=== PATIENT | female | born 2000 | race Caucasian/White ===

== ENCOUNTER 2023-01-19 14:18 | Emergency (ER) | payer OTHER, SELFPAY ==
[2023-01-19 14:22] VITALS: BP 116/70; PULSE 57; RESP 18; TEMP 36.8; O2SAT 99; BMI 24.7
--- NOTE | 2023-01-19 14:38 | ED_ITS ---
HPI - Nausea/Vomiting/Diarrhea General Chief complaint: Nausea/Vomiting/Diarrhea Stated complaint: NAUSEA/VOMITTING 6 WEEKS Time Seen by Provider: 01/19/23 14:35 Source: patient Mode of arrival: walk-in Limitations: no limitations History of Present Illness HPI Narrative: 22-year-old female presents for nausea and vomiting. She is she states, about six weeks. No vaginal bleeding or fever or hematemesis. She has been able to eat or drink much at all in the last forty-eight hours. She had problems with morning sickness in her other . Related Data Previous Rx's Medication Instructions Recorded ondansetron 4 mg disintegrating 4 mg PO Q6H PRN nausea and 01/19/23 tablet vomiting #20 tabs Allergies Allergy/AdvReac Type Severity Reaction Status Date / Time codeine Allergy Unknown Verified 01/19/23 14:22 Review of Systems ROS Narrative A ten point review of systems is negative except as noted above. Exam Narrative Exam Narrative: Nurses note and vital signs reviewed and patient is not hypoxic. General: The patient appears well and in no apparent distress. Patient is resting comfortably on cart. Skin: Warm, dry, no pallor noted. There is no rash noted. Head: Normocephalic, atraumatic Eye: Normal conjunctiva, no drainage Ears, Nose, Mouth, and Throat: oral mucosa is moist. Nares patent. Cardiovascular: Regular Rate and Rhythm Respiratory: Patient is in no distress, no accessory muscle use, lungs are clear to auscultation, no wheezing, rales or rhonchi Back: non-tender GI: soft and nontender Musculoskeletal: The patient has no evidence of calf tenderness, no pitting edema, symmetrical pulses noted bilaterally Neurological: A&O, normal speech Psychiatric: Cooperative Constitutional Vital Signs, click to edit/add: Last Vital Signs Temp 98.2 F 01/19/23 14:22 Pulse 58 L 01/19/23 15:55 Resp 18 01/19/23 15:55 BP 112/53 01/19/23 15:55 Pulse Ox 100 01/19/23 15:55 O2 Del Method Room Air 01/19/23 14:22 Course Vital Signs Vital signs: Vital Signs Temperature 98.2 F 01/19/23 14:22 Pulse Rate 57 L 01/19/23 14:22 Respiratory Rate 18 01/19/23 14:22 Blood Pressure 116/70 11/08/23 14:22 Pulse Oximetry 99 01/19/23 14:22 Oxygen Delivery Method Room Air 01/19/23 14:22 Temperature 98.2 F 01/19/23 14:22 Pulse Rate 58 L 01/19/23 15:55 Respiratory Rate 18 01/19/23 15:55 Blood Pressure 112/53 01/19/23 15:55 Pulse Oximetry 100 01/19/23 15:55 Oxygen Delivery Method Room Air 01/19/23 14:22 MDM - Nausea/Vomiting/Diarrhea MDM Narrative Medical decision making narrative: T Lab Data Attestation: I reviewed the patient's lab results. Labs: Lab Results 01/19/23 01/19/23 Range/Units 14:53 16:30 WBC 11.0 (4.0-11.0) 10^3/uL RBC 3.97 L (4.20-5.40) 10^6/uL Hgb 12.2 (12.0-16.0) g/dL Hct 38.1 (36.0-48.0) % MCV 96.0 (81.0-99.0) fL MCH 30.7 (26.7-34.0) pg MCHC 32.0 (29.9-35.2) g/dL RDW 11.9 (11.0-15.0) % Plt Count 259 (150-450) 10^3/uL MPV 10.6 (9.5-13.5) fL Neut % (Auto) 74.0 (43.0-75.0) % Lymph % (Auto) 18.0 L (20.5-60.0) % Bailey % (Auto) 6.8 (1.7-12.0) % Eos % (Auto) 0.5 L (0.9-7.0) % Baso % (Auto) 0.3 (0.2-2.0) % Neut # (Auto) 8.2 H (1.4-6.5) 10^3/uL Lymph # (Auto) 2.0 (1.2-3.8) 10^3/uL Bailey # (Auto) 0.8 (0.3-0.8) 10^3/uL Eos # (Auto) 0.1 (0.0-0.7) 10^3/uL Baso # (Auto) 0.0 (0.0-0.1) 10^3/uL Abs Immat Gran (auto) 0.04 H (0.00-0.03) 10^3/uL Imm/Tot Granulo (auto) 0.4 (0.0-0.5) % Sodium 136 (136-145) mmol/L Potassium 3.7 (3.5-5.1) mmol/L Chloride 103 (98-107) mmol/L Carbon Dioxide 21.0 (21.0-32.0) mmol/L Anion Gap 15.7 BUN 8.0 (7.0-18.0) mg/dL Creatinine 0.67 (0.55-1.02) mg/dL Est GFR ( Amer) >60 (>=60) Est GFR (Non-Af Amer) >60 (>=60) BUN/Creatinine Ratio 11.9 Glucose 78 (74-106) mg/dL Calcium 8.8 (8.5-10.1) mg/dL Serum HCG, Qual Positive A (NEGATIVE) Urine Color Yellow (YELLOW) Urine Clarity Clear (CLEAR) Urine pH 6.5 (5.0-9.0) Ur Specific [place] 1.025 (1.005-1.025) Urine Protein Trace (NEG/TRACE) mg/dL Urine Glucose (UA) Negative (NEGATIVE) mg/dL Urine Ketones >=80 A (NEGATIVE) mg/dL Urine Occult Blood Negative (NEGATIVE) Urine Nitrite Negative (NEGATIVE) Urine Bilirubin Small A (NEGATIVE) Urine Urobilinogen 1.0 (0.2-1.0) EU/dL Ur Leukocyte Esterase Negative (NEGATIVE) Urine RBC 0-2 (0-2) #/HPF Urine WBC None seen (NONE SEEN) #/HPF Ur Squamous Epith Cells Few A (NONE/RARE) #/LPF Urine Crystals None seen (None Seen) #/HPF Urine Bacteria Moderate A (NONE SEEN) #/HPF Urine Casts None seen (NONE SEEN) #/LPF Urine Mucus Moderate A (NONE SEEN) Discharge Plan Discharge Chief Complaint: Nausea/Vomiting/Diarrhea Clinical Impression: Nausea and vomiting in Patient Disposition: Home, Self-Care Time of Disposition Decision: 17:53 Condition: Good Mode of Transportation: Private Vehicle Prescriptions / Home Meds: New ondansetron 4 mg tablet,disintegrating 4 mg PO Q6H PRN (Reason: nausea and vomiting) Qty: 20 0RF Instructions: Nausea and Vomiting in (ED) Stand Alone Forms: Portal Instructions Referrals: Physician,Non-Staff, MD [Primary Care Provider] - 1 week
[2023-01-19 15:01] LABS: Basophils Percent Auto 0.3 % (0.2-2.0); Eosinophils Absolute Auto 0.1 10^3/uL (0.0-0.7); Eosinophils Percent Auto 0.5 % (0.9-7.0); Hematocrit 38.1 % (36.0-48.0); Hemoglobin 12.2 g/dL (12.0-16.0); Immature Granulocytes Abs Auto 0.04 10^3/uL (0.00-0.03); Immature Granulocytes Pct Auto 0.4 % (0.0-0.5); Mean Corpuscular Hemoglobin 30.7 pg (26.7-34.0); Mean Platelet Volume 10.6 fL (9.5-13.5); Monocytes Absolute Auto 0.8 10^3/uL (0.3-0.8); Monocytes Percent Auto 6.8 % (1.7-12.0); Neutrophils Absolute Auto 8.2 10^3/uL (1.4-6.5); Platelet Count 259 10^3/uL (150-450); Red Blood Count 3.97 10^6/uL (4.20-5.40); Red Cell Distribution Width 11.9 % (11.0-15.0)
[2023-01-19 15:08] LABS: HCG Qualitative POSITIVE (NEGATIVE)
[2023-01-19] MEDS: 0.9 % SODIUM CHLORIDE 1,000 ML 1000 ML IV (15:08)
[2023-01-19] MEDS: ONDANSETRON PF 4 MG/2 ML VIAL IV (15:09)
[2023-01-19 15:10] LABS: Anion Gap 15.7; BUN Creatinine Ratio 11.9; Calcium 8.8 mg/dL (8.5-10.1); Chloride 103 mmol/L (98-107); Estimated GFR (African America >60 (>=60); Estimated GFR (Non-African Ame >60 (>=60); Glucose 78 mg/dL (74-106); Potassium 3.7 mmol/L (3.5-5.1); Sodium 136 mmol/L (136-145)
[2023-01-19 15:55] VITALS: BP 112/53; PULSE 58; RESP 18; O2SAT 100
[2023-01-19 17:28] LABS: Bilirubin Urine SMALL (NEGATIVE); Blood Urine NEGATIVE (NEGATIVE); Clarity Urine CLEAR (CLEAR); Color Urine YELLOW (YELLOW); Glucose Urine UA NEGATIVE (NEGATIVE); Ketones Urine >=80 mg/dL (NEGATIVE); Leukocyte Esterase Urine NEGATIVE (NEGATIVE); Nitrite Urine NEGATIVE (NEGATIVE); Protein Urine TRACE mg/dL (NEG/TRACE); Specific Gravity Urine 1.025 (1.005-1.025); pH Urine 6.5 (5.0-9.0)
[2023-01-19 17:44] LABS: Bacteria Urine MODERATE #/HPF (NONE SEEN); Cast Seen? NONE SEEN #/LPF (NONE SEEN); Crystals Seen? None Seen #/HPF (None Seen); Mucus Urine MODERATE (NONE SEEN); RBC Urine 0-2 #/HPF (0-2); Squamous Epithelial Cell Urine FEW #/LPF (NONE/RARE); WBC Urine NONE SEEN #/HPF (NONE SEEN)
== END 2023-01-19 18:01 | disposition home or self-care (01) ==
PROVIDERS: Emergency Provider Emergency Medicine
DX: O26.891 Other specified pregnancy related conditions, first trimester (principal); R11.2 Nausea with vomiting, unspecified; Z3A.01 Less than 8 weeks gestation of pregnancy
CPT/HCPCS: 36415; 80048; 81001; 84703; 85025; 96361; 96374; 99285

== ENCOUNTER 2023-04-22 08:37 | Outpatient (OUT) | payer OTHER, SELFPAY ==
--- NOTE | 2023-04-22 08:39 | US_ITS ---
[address] [address] Patient Name: RUBEN IYER MRN: [id number] date: 2000 Sex: F Assigned Patient Location: [facility] Current Patient Location: [facility] Accession/Order Number: [id number] Exam Date: 04/22/2023 08:39 Report Date: 04/22/2023 09:29 At the request of: ASHER RHOADES Procedure: US OB >= 14 weeks Fetus EXAMINATION: US OB >= 14 weeks Fetus HISTORY: MISSED MENSES COMPARISON: No relevant comparison available. TECHNIQUE: Transabdominal sonographic examination was performed for obstetrical and evaluation. FINDINGS: Number: 1 Heart Rate: 151.0 bpm H.B. /min Amniotic Fluid Volume: Subjectively normal position: Cephalic presentation, longitudinal lie Placental Location: Blank Cervix Length: Not measured BIOMETRY: BPD: 4.5 cm 19 weeks 3 days , 18% HC: 16.9 cm 19 weeks 4 days, 14% AC: 14.1 cm 19 weeks 3 days, 20% FL: 3.1 cm 19 weeks 5 days , 24% EFW:302.2 grams; [ounces, 14% FL/AC: 22.2 FL/BPD: 70.6 HC/AC: 1.2 GESTATIONAL AGE: Age by EDC: 20 weeks 2 days Age by current US: 19 weeks 4 days ASAEL by current US: 09/12/2023 ASAEL by EDC: 09/07/2023 US/US OB >= 14 weeks Fetus IMPRESSION: Viable tolbert intrauterine gestation measuring 19 weeks 4 days *Reference: [facility] Practice Guideline for the performance of Obstetric Ultrasound Examinations, December 12, 2006. Electronically authenticated by: JORDON PETTY Date: 04/22/2023 09:29
--- OUTSIDE RECORDS SUMMARY | 2023-04-22 08:40 | XMS_ITS | CCD ---
Author Name Unknown Address [id number] [place] [address] Organization [facility] Care Team Providers Care Specialty Plant Supervisor Name Role Phone GUNNER, DR BOGGS Admitting Unavailable MISC, DR ORANTES Primary Care Unavailable KARASIK, DR BOGGS Attending Unavailable KARASIK, DR BOGGS Consulting Unavailable MISC, DR ORANTES Primary Care Unavailable KARASIK, DR BOGGS Attending Unavailable KARASIK, DR BOGGS Consulting Unavailable KARASIK, DR BOGGS Admitting Unavailable Mohini Anaya MD Primary Care Provider [phone] MOHINI ANAYA Primary Care Unavailable MANASA ROY Attending Unavailable NO FAMILY, PHYSICIAN Primary Care Provider Unava aydinable MD Ephraim Santoyo Jr Emergency Provider MD Abdulkadir Maradiaga Admit Provider [phone] MD Abdulkadir Maradiaga Attending Provider Javi Maradiaga Admitting Unavailab le RODDY FAMILY, PHYSICIAN Primary Care Unavailable Sebastian Brock Attending Unavailable Javi Maradiaga Admitting Unavailab le Javi Maradiaga Attending Unavailab le NO FAMILY, PHYSICIAN Primary Care Unavailable Allergies Allergy Classification Reported Allergen(s) Allergy Type Date of Onset Reaction(s) Facility (1 source) Acetaminophen / HYDROcodone Drug Allergy [facility] Repository (2 sources) Codeine Drug Allergy 2 Nausea And Vomiting [facility] [employer] (1 source) Shellfish-Derived Products Propensity to adverse reactions to drug 2 Angioedema [facility] Work Phone: (1 source) Codeine Drug Allergy 3 [facility] Repository Medications Current Medications Medication Drug Class(es) Dates Sig (Normalized) Sig (Original) escitalopram 5 mg oral tablet (1 source) Serotonin Reuptake Inhibitor Start: 10-17-2022 take 5 mg by mouth once daily at bedtime Escitalopram Oxalate Active 5 MG PO Daily at bedtime 30 30 October 17, 2022 12:00am fluconazole 150 mg oral tablet (1 source) Azole Antifungal Start: 08-14-2021 End: 08-14-2021 take 1 tablet by mouth once fluconazole (DIFLUCAN) 150 MG tablet Take 1 tablet by mouth once for 1 dose 1 tablet 0 08/14/2021 08/14/2021 Active metroNIDAZOLE 500 mg oral tablet (1 source) Nitroimidazole Antimicrobial Start: 08-14-2021 End: 08-24-2021 take 1 tablet by mouth twice daily metroNIDAZOLE (FLAGYL) 500 MG tablet Take 1 tablet by mouth 2 times daily for 10 days 20 tablet 0 08/14/2021 08/24/2021 Active nicotine 2 mg chewing gum (1 source) Cholinergic Nicotinic Agonist Start: 10-17-2022 Nicotine (Polacrilex) Active 2 MG BUCCAL Every 2 hours 60 October 17, 2022 12:00am Reeves (No Known Home Meds) (1 source) Start: 10-14-2022 Reeves (No Known Home Meds) Active October 14, 2022 12:00am Problems Active Problems Problem Classification Problem Date Documented Date Episodic/Chronic Inflammatory diseases of female pelvic organs (1 source) Bacterial vaginosis; Translations: [Acute vaginitis] Episodic Mood disorders (4 sources) Recurrent major depressive episodes, moderate ; Translations: [Major depressive disorder, recurrent, moderate] Onset: 10-14-2022 10-14-2022 Chronic Other female genital disorders (4 sources) Other specified noninflammatory disorders of vagina; Translations: [OTH SPEC NONINFLAMMATORY D/O VAGINA] Onset: 01-14-2021 Episodic Other female genital disorders (1 source) Pruritus of vagina; Translations: [Other specified noninflammatory disorders of vagina] Episodic Past or Other Problems Problem Classification Problem Date Documented Date Episodic/Chronic Blindness and vision defects (3 sources) Blurring of visual image; Translations: [Other visual disturbances] Onset: 10-14-2022 10-14-2022 Episodic Immunizations and screening for infectious disease (1 source) Encounter for screening for infections with a predominantly sexual mode of transmission; Translations: [ENC SCREEN INFECTIONS SEXL TRANSMS] Onset: 05-02-2020 Episodic Suicide and intentional self-inflicted injury (3 sources) Suicidal thoughts; Translations: [Suicidal ideations] Onset: 10-14-2022 10-14-2022 Episodic Results Test Name Value Interpretation Reference Range Facility Alanine aminotransferase [En zymatic activity/volume] in Serum or PlasmaOrdered By: Ephraim Santoyo on 10-14-2022 ALT [Catalytic activity/Vol] 7 U/L 7-52 [facility] Albumin [Mass/volume] in Ser um or Plasma by Bromocresol green (BCG) dye binding methoOrdered By: Ephraim Santoyo on 10-14-2022 Albumin BCG dye [Mass/Vol] 4.5 g/dL 3.5-5.7 [facility] Alkaline phosphatase [Enzyma tic activity/volume] in Serum or PlasmaOrdered By: Ephraim Santoyo on 10-14-2022 ALP [Catalytic activity/Vol] 47 U/L 34-104 [facility] Amphetamine Screen Ql (U)Ord ered By: Ephraim Santoyo on 10-14-2022 Amphetamines Ql (U) Negative Negative [facility] Aspartate aminotransferase [ Enzymatic activity/volume] in Serum or PlasmaOrdered By: Ephraim Santoyo on 10-14-2022 AST [Catalytic activity/Vol] 10 U/L 13-39 [facility] Automated erythrocytes count in urine sediment (number/area)Ordered By: Ephraim Santoyo on 10-14-2022 RBC Auto (Urine sed) [#/Area] 10-19 [HPF] 0-4 [facility] Automated leukocytes count i n urine sediment (number/area)Ordered By: Ephraim Santoyo on 10-14-2022 WBC Auto (Urine sed) [#/Area] 20-49 [HPF] 0-4 [facility] Automated urine hyaline cast s count (number/volume)Ordered By: Ephraim Santoyo on 10-14-2022 Hyaline casts Auto (U) [#/Vol] 0-1 [LPF] 0-1 [facility] Automated urine sediment stephen cium oxalate crystal count by microscopy (number/high powOrdered By: Ephraim Santoyo on 10-14-2022 Calcium oxalate crystals LM.HPF (Urine sed) [#/Area] Rare [HPF] [facility] Barbiturates [Presence] in U rine by Screen methodOrdered By: Ephraim Santoyo on 10-14-2022 Barbiturates Screen Ql (U) Negative Negative [facility] Basophils Auto (Bld) [#/Vol] Ordered By: Ephraim Santoyo on 10-14-2022 Basophils (Bld) [#/Vol] 0.1 10*3/uL 0.0-0.2 [facility] Basophils/100 WBC Auto (Bld) Ordered By: Ephraim Santoyo on 10-14-2022 Basophils/100 WBC (Bld) 0.8 % . [facility] Benzodiazepines Screen Ql (U )Ordered By: Ephraim Santoyo on 10-14-2022 Benzodiazepines Ql (U) Negative Negative [facility] Benzoylecgonine [Presence] i n Urine by Screen methodOrdered By: Ephraim Santoyo on 10-14-2022 Benzoylecgonine Screen Ql (U) Negative Negative [facility] Bilirubin Test strip Ql (U)O rdered By: Ephraim Santoyo on 10-14-2022 Bilirubin Ql (U) Negative Negative [facility] Bilirubin.total [Mass/volume ] in Serum or PlasmaOrdered By: Ephraim Santoyo on 10-14-2022 Bilirubin [Mass/Vol] 0.3 mg/dL 0.3-1.0 [facility] Calcium [Mass/volume] in Ser um or PlasmaOrdered By: Ephraim Santoyo on 10-14-2022 Calcium [Mass/Vol] 9.0 mg/dL 8.6-10.3 [facility] Cannabinoids [Presence] in U rine by Screen methodOrdered By: Ephraim Santoyo on 10-14-2022 Cannabinoids Screen Ql (U) Positive Negative [facility] Comment on above: These are unconfirme d results and should not be used for legal purposes. Drug Cut-Off Concentration: AMPH 1000 ng/mL IRENE 200 ng/mL ANGELINE 200 ng/mL COCM 300 ng/mL OP 300 ng/mL PCP 25 ng/mL THC 20 ng/mL Carbon dioxide, total [Moles /volume] in Serum or PlasmaOrdered By: Ephraim Santoyo on 10-14-2022 CO2 [Moles/Vol] 24.2 mmol/L 21.0-31.0 [facility] Casts typing in urine sedime nt by light microscopyOrdered By: Ephraim Santoyo on 10-14-2022 Casts LM Nom (Urine sed) None seen [LPF] None Seen [facility] Chloride [Moles/volume] in S mack or PlasmaOrdered By: Ephraim Santoyo on 10-14-2022 Chloride [Moles/Vol] 106 mmol/L 98-107 [facility] Cholesterol [Mass/volume] in Serum or PlasmaOrdered By: Javi Maradiaga on 10-14-2022 Cholesterol [Mass/Vol] 188 mg/dL 140-200 [facility] Comment on above: Chol less than 200 m g/dl low riskChol 201-239 mg/dl borderline riskChol 240 mg/dl and greater high risk Cholesterol in LDL Calc [Mas s/Vol]Ordered By: Javi Maradiaga on 10-14-2022 Cholesterol in LDL [Mass/Vol] 131 mg/dL 0-100 [facility] Comment on above: LDL ATP III CLASSIFI CATIONLDL less than 100 mg/dL OptimalLDL 100-129 mg/dL Near or above optimalLDL 130-159 mg/dL Borderline highLDL 160-189 mg/dL HighLDL greater than 189 mg/dL Very high Cholesterol in VLDL Calc [Ma ss/Vol]Ordered By: Javi Maradiaga on 10-14-2022 Cholesterol in VLDL [Mass/Vol] 12 mg/dL [facility] Color Auto (U)Ordered By: Nick Santoyo on 10-14-2022 Color (U) Yellow Yellow [facility] Complete Blood Count Auto Di ffon 10-14-2022 Basophils (Bld) [#/Vol] 0.1 10*3/uL Normal 0.0-0.2 [facility] Comment on above: Result Comment: PERF ORMED BY: [facility] [address] [place] [address] PATHOLOGIST GATE SUPERVISOR SHANICE SOLORZANO M.D. Performed By: #### C BC, ETOH, CMP #### [facility] [address] [place] [address] [place] Basophils/100 WBC (Bld) 0.8 % Normal . [facility] Comment on above: Performed By: #### C BC, ETOH, CMP #### [facility] [address] [place] [address] [place] Eosinophils (Bld) [#/Vol] 0.1 10*3/uL Normal 0.0-0.45 [facility] Comment on above: Performed By: #### C BC, ETOH, CMP #### [facility] [address] [place] [address] [place] Eosinophils/100 WBC (Bld) 1.8 % Normal . [facility] Comment on above: Performed By: #### C BC, ETOH, CMP #### [facility] [address] Erythrocyte distribution width (RBC) [Ratio] 12.7 % Normal 11.9-15.3 [facility] Comment on above: Performed By: #### C BC, ETOH, CMP #### [facility] [address] [place] [address] [place] Hematocrit (Bld) [Volume fraction] 37.9 % Normal 34.0-46.4 [facility] Comment on above: Performed By: #### C BC, ETOH, CMP #### [facility] [address] [place] [address] [place] Hemoglobin (Bld) [Mass/Vol] 12.8 g/dL Normal 11.8-15.4 [facility] Comment on above: Performed By: #### C BC, ETOH, CMP #### [facility] [address] [place] [address] [place] Lymphocytes (Bld) [#/Vol] 2.3 10*3/uL Normal 1.00-4.8 [facility] Comment on above: Performed By: #### C BC, ETOH, CMP #### [facility] [address] [place] [address] [place] Lymphocytes/100 WBC (Bld) 33.4 % Normal . [facility] Comment on above: Performed By: #### C BC, ETOH, CMP #### [facility] [address] MCH (RBC) [Entitic mass] 31.2 pg Normal 24.7-34.3 [facility] Comment on above: Performed By: #### C BC, ETOH, CMP #### [facility] [address] MCV (RBC) [Entitic vol] 92.0 fL Normal 80-[address] [facility] Comment on above: Performed By: #### C BC, ETOH, CMP #### [facility] [address] Mean Corpuscular HGB Conc 33.9 g/dL Normal 32.0-35.0 [facility] Comment on above: Performed By: #### C BC, ETOH, CMP #### [facility] [address] Monocytes (Bld) [#/Vol] 0.5 10*3/uL Normal 0.0-0.8 [facility] Comment on above: Performed By: #### C BC, ETOH, CMP #### [facility] [address] [place] [address] [place] Monocytes/100 WBC (Bld) 17.09 % Normal 0.00-20.[address] [facility] Comment on above: Performed By: #### C BC, ETOH, CMP #### [facility] [address] [place] [address] [place] Monocytes/100 WBC (Bld) 8.0 % Normal . [facility] Comment on above: Performed By: #### C BC, ETOH, CMP #### [facility] [address] [place] [address] [place] Neutrophils (Bld) [#/Vol] 3.8 10*3/uL Normal 1.8-7.7 [facility] Comment on above: Performed By: #### C BC, ETOH, CMP #### [facility] [address] [place] [address] [place] Neutrophils/100 WBC (Bld) 56.0 % Normal . [facility] Comment on above: Performed By: #### C BC, ETOH, CMP #### [address] NRBC% 0.1 /100{WBC} Normal 0-0.5 [facility] Comment on above: Performed By: #### C BC, ETOH, CMP #### [address] Platelet mean volume (Bld) [Entitic vol] 8.1 fL Normal 6.3-10.7 [facility] Comment on above: Performed By: #### C BC, ETOH, CMP #### [address] Platelets (Bld) [#/Vol] 291 10*3/uL Normal 150-450 [facility] Comment on above: Performed By: #### C BC, ETOH, CMP #### [address] RBC (Bld) [#/Vol] 4.12 10*6/uL Normal 3.60-5.00 [facility] Comment on above: Performed By: #### C BC, ETOH, CMP #### [address] WBC (Bld) [#/Vol] 6.8 10*3/uL Normal 3.8-11.6 [facility] Comment on above: Performed By: #### C BC, ETOH, CMP #### [address] Comprehensive Metabolic Pane teresa 10-14-2022 Albumin [Mass/Vol] 4.5 g/dL Normal 3.5-5.7 [facility] Comment on above: Performed By: #### C BC, ETOH, CMP #### [address] Albumin/Globulin [Mass ratio] 1.6 {ratio} Normal [facility] Comment on above: Performed By: #### C BC, ETOH, CMP #### [address] ALP [Catalytic activity/Vol] 47 U/L Normal 34-104 [facility] Comment on above: Performed By: #### C BC, ETOH, CMP #### [facility] [address] ALT [Catalytic activity/Vol] 7 U/L Normal 7-52 [facility] Comment on above: Performed By: #### C BC, ETOH, CMP #### [facility] [address] Anion gap [Moles/Vol] 12.1 mmol/L Normal 6.0-15.0 [facility] Comment on above: Performed By: #### C BC, ETOH, CMP #### [facility] [address] AST [Catalytic activity/Vol] 10 U/L Low 13-39 [facility] Comment on above: Performed By: #### C BC, ETOH, CMP #### [facility] [address] Bilirubin [Mass/Vol] 0.3 mg/dL Normal 0.3-1.0 [facility] Comment on above: Performed By: #### C BC, ETOH, CMP #### [facility] [address] [place] [address] Calcium [Mass/Vol] 9.0 mg/dL Normal 8.6-10.3 [facility] Comment on above: Performed By: #### C BC, ETOH, CMP #### [facility] [address] Chloride [Moles/Vol] 106 mmol/L Normal 98-107 [facility] Comment on above: Performed By: #### C BC, ETOH, CMP #### [facility] [address] [place] [address] [place] CO2 [Moles/Vol] 24.2 mmol/L Normal 21.0-31.0 [facility] Comment on above: Performed By: #### C BC, ETOH, CMP #### [facility] [address] Creatinine [Mass/Vol] 0.74 mg/dL Normal 0.60-1.20 [facility] Comment on above: Performed By: #### C BC, ETOH, CMP #### [facility] [address] Creatinine Clr Calc Pharmacy 100.71 Normal [facility] Comment on above: Result Comment: PERF ORMED BY: [place] [address] PATHOLOGIST GATE SUPERVISOR SHANICE SOLORZANO M.D. Performed By: #### C BC, ETOH, CMP #### [facility] [address] GFR/1.73 sq M.predicted MDRD (S/P/Bld) [Vol rate/Area] mL/min/{1.73_m2} Normal [facility] Comment on above: Performed By: #### C BC, ETOH, CMP #### [facility] [address] [place] [address] [place] Globulin (S) [Mass/Vol] 2.9 g/dL Normal [facility] Comment on above: Performed By: #### C BC, ETOH, CMP #### [address] Glucose [Mass/Vol] 111 mg/dL High 70-100 [facility] Comment on above: Result Comment: [place] Glucose Reference Range is dependent on time and content of last meal. Glucose of more than 200 mg/dL in a nonstressed, ambulatory subject supports the diagnosis of Diabetes Mellitus. ADA recommended reference range Performed By: #### C BC, ETOH, CMP #### [facility] [address] Potassium [Moles/Vol] 3.3 mmol/L Low 3.5-5.1 [facility] Comment on above: Performed By: #### C BC, ETOH, CMP #### [facility] [address] Protein [Mass/Vol] 7.4 g/dL Normal 6.4-8.9 [facility] Comment on above: Performed By: #### C BC, ETOH, CMP #### [facility] [address] Sodium [Moles/Vol] 139 mmol/L Normal 136-145 [facility] Comment on above: Performed By: #### C BC, ETOH, CMP #### [facility] [address] Urea nitrogen [Mass/Vol] 10 mg/dL Normal 7-25 [facility] Comment on above: Performed By: #### C BC, ETOH, CMP #### [facility] [address] Creatinine [Mass/volume] in Serum or PlasmaOrdered By: Ephraim Santoyo on 10-14-2022 Creatinine [Mass/Vol] 0.74 mg/dL 0.60-1.20 [facility] Dipstick and Microscopicon 0 10-14-2022 Appearance (U) Cloudy Critically abnormal Clear [facility] Comment on above: Order Comment: Name Collection Type:: Clean-Voided Midstream Performed By: #### A DDONUAPLUS, UHCG, URDS, CUU #### [address] Bacteria,Urine 2+ High None Seen [facility] Comment on above: Order Comment: Name Collection Type:: Clean-Voided Midstream Performed By: #### A DDONUAPLUS, UHCG, URDS, CUU #### [place] [address] [place] Bilirubin,Urine Negative Normal Negative [facility] Comment on above: Order Comment: Name Collection Type:: Clean-Voided Midstream Performed By: #### A DDONUAPLUS, UHCG, URDS, CUU #### [place] [address] [place] Calcium Oxalate Crystals,Urine Rare Normal [facility] Comment on above: Order Comment: Name Collection Type:: Clean-Voided Midstream Performed By: #### A DDONUAPLUS, UHCG, URDS, CUU #### [place] [address] [place] Color (U) Yellow Normal Yellow [facility] Comment on above: Order Comment: Name Collection Type:: Clean-Voided Midstream Performed By: #### A DDONUAPLUS, UHCG, URDS, CUU #### [facility] [address] [place] [address] Glucose Ql (U) Normal Normal Normal [facility] Comment on above: Order Comment: Name Collection Type:: Clean-Voided Midstream Performed By: #### A DDONUAPLUS, UHCG, URDS, CUU #### [facility] [address] [place] [address] Hyaline Casts,Urine 0-1 Normal 0-1 [facility] Comment on above: Order Comment: Name Collection Type:: Clean-Voided Midstream Performed By: #### A DDONUAPLUS, UHCG, URDS, CUU #### [facility] [address] [place] [address] Ketones Ql (U) Trace High Negative [facility] Comment on above: Order Comment: Name Collection Type:: Clean-Voided Midstream Performed By: #### A DDONUAPLUS, UHCG, URDS, CUU #### [facility] [address] [place] [address] Leukocyte esterase Test strip Ql (U) 3+ High Negative [facility] Comment on above: Order Comment: Name Collection Type:: Clean-Voided Midstream Performed By: #### A DDONUAPLUS, UHCG, URDS, CUU #### [facility] [address] [place] [address] Mucus,Urine 1+ Critically abnormal [facility] Comment on above: Order Comment: Name Collection Type:: Clean-Voided Midstream Performed By: #### A DDONUAPLUS, UHCG, URDS, CUU #### [place] [address] [place] Nitrite,Urine Negative Normal Negative [facility] Comment on above: Order Comment: Name Collection Type:: Clean-Voided Midstream Performed By: #### A DDONUAPLUS, UHCG, URDS, CUU #### [facility] [address] [place] [address] Occult Blood,Urine Negative Normal Negative [facility] Comment on above: Order Comment: Name Collection Type:: Clean-Voided Midstream Performed By: #### A DDONUAPLUS, UHCG, URDS, CUU #### [address] Other Casts,Urine None Seen Normal None Seen [facility] Comment on above: Order Comment: Name Collection Type:: Clean-Voided Midstream Performed By: #### A DDONUAPLUS, UHCG, URDS, CUU #### [address] pH (U) 5.5 [pH] Normal 5.0-9.0 [facility] Comment on above: Order Comment: Name Collection Type:: Clean-Voided Midstream Performed By: #### A DDONUAPLUS, UHCG, URDS, CUU #### [address] Protein,Urine Negative Normal Negative [facility] Comment on above: Order Comment: Name Collection Type:: Clean-Voided Midstream Performed By: #### A DDONUAPLUS, UHCG, URDS, CUU #### [address] RBC,Urine 10-19 High 0-4 [facility] Comment on above: Order Comment: Name Collection Type:: Clean-Voided Midstream Performed By: #### A DDONUAPLUS, UHCG, URDS, CUU #### [address] Specificy [place],Urine 1.024 Normal 1.001-1.030 [facility] Comment on above: Order Comment: Name Collection Type:: Clean-Voided Midstream Performed By: #### A DDONUAPLUS, UHCG, URDS, CUU #### [place] [address] [place] Squamous Epithelial Cell,Urine 5-9 High 0-2 [facility] Comment on above: Order Comment: Name Collection Type:: Clean-Voided Midstream Performed By: #### A DDONUAPLUS, UHCG, URDS, CUU #### [facility] [address] [place] [address] Urobilinogen,Urine Normal Normal Normal [facility] Comment on above: Order Comment: Name Collection Type:: Clean-Voided Midstream Performed By: #### A DDONUAPLUS, UHCG, URDS, CUU #### [address] WBC,Urine 20-49 High 0-4 [facility] Comment on above: Order Comment: Name Collection Type:: Clean-Voided Midstream Performed By: #### A DDONUAPLUS, UHCG, URDS, CUU #### [address] Drug Screen,Urineon 10-15-19 23 Amphetamine Screen,Urine Negative Normal Negative [facility] Comment on above: Performed By: #### A DDONUAPLUS, UHCG, URDS, CUU #### [facility] [address] [place] [address] Barbiturate Screen,Urine Negative Normal Negative [facility] Comment on above: Performed By: #### A DDONUAPLUS, UHCG, URDS, CUU #### [facility] [address] [place] [address] Benzodiazepines Screen,Urine Negative Normal Negative [facility] Comment on above: Performed By: #### A DDONUAPLUS, UHCG, URDS, CUU #### [facility] [address] [place] [address] Cannabinoid Screen,Urine Positive High Negative [facility] Comment on above: Result Comment: Thes e are unconfirmed results and should not be used for legal purposes. Drug Cut-Off Concentration: AMPH 1000 ng/mL IRENE 200 ng/mL ANGELINE 200 ng/mL COCM 300 ng/mL OP 300 ng/mL PCP 25 ng/mL THC 20 ng/mL PERFORMED BY: [place] [address] PATHOLOGIST GATE SUPERVISOR SHANICE SOLORZANO M.D. Performed By: #### A DDONUAPLUS, UHCG, URDS, CUU #### [facility] [address] Cocaine Screen,Urine Negative Normal Negative [facility] Comment on above: Performed By: #### A DDONUAPLUS, UHCG, URDS, CUU #### [facility] [address] [place] [address] [place] Opiate Screen,Urine Negative Normal Negative [facility] Comment on above: Performed By: #### A DDONUAPLUS, UHCG, URDS, CUU #### [address] Phencyclidine Screen,Urine Negative Normal Negative [facility] Comment on above: Performed By: #### A DDONUAPLUS, UHCG, URDS, CUU #### [address] ECG 12 lead ECGon 10-14-2022 ECG 12 lead ECG [facility] [place] [address] [place] [address] Electrocardiograph Report Signed Patient: Deirdre Omer MR#: [id number] : 2000 Acct:[id number] Age/Sex: 22 / F ADM Date: 10/14/22 Loc: Room: [address] [place] [address] Type: ADM IN Attending Dr: Abdulkadir Maradiaga MD Ordering Provider: Javi Maradiaga MD Date of Service: 10/14/2206/03/499 ECG/ECG 12 lead ECG: baseline for psych meds Copies to: Test Reason : Blood Pressure : / mmHG Vent. Rate : 052 BPM Atrial Rate : 052 BPM P-R Int : 168 ms QRS Dur : 088 ms QT Int : 446 ms P-R-T Axes : 032 047 029 degrees QTc Int : 414 ms Sinus bradycardia with sinus arrhythmia Otherwise normal ECG No previous ECGs available Confirmed by FRANKIE RASHEED DO ([id number]) on 10/15/2022 6:31:18 AM Referred By: Electronically Signed By:FRANKIE RASHEED DO Transcribed By: MUS Signed By Frankie Rasheed DO 10/15 0631 Normal [facility] Eosinophils Auto (Bld) [#/Vo l]Ordered By: Ephraim Santoyo on 10-14-2022 Eosinophils (Bld) [#/Vol] 0.1 10*3/uL 0.0-0.45 [facility] Eosinophils/100 WBC Auto (Bl d)Ordered By: Ephraim Santoyo on 10-14-2022 Eosinophils/100 WBC (Bld) 1.8 % . [facility] Erythrocyte distribution wid th Auto (RBC) [Ratio]Ordered By: Ephraim Santoyo on 10-14-2022 Erythrocyte distribution width (RBC) [Ratio] 12.7 % 11.9-15.3 [facility] Ethanol [Mass/volume] in Ser um or PlasmaOrdered By: Ephraim Santoyo on 10-14-2022 Ethanol [Mass/Vol] mg/dL [facility] Ethanol [Mass/Vol] TNP [facility] Comment on above: Test not performed Ethyl Alcohol Profileon Ethanol [Mass/Vol] mg/dL Normal [facility] Comment on above: Performed By: #### C BC, ETOH, CMP #### [facility] [address] Percent Ethanol Not performed Normal [facility] Comment on above: Result Comment: PERF ORMED BY: [facility] [address] [facility] [place] [address] PATHOLOGIST GATE SUPERVISOR SHANICE SOLORZANO M.D. Performed By: #### C BC, ETOH, CMP #### [facility] [address] Globulin Calc (S) [Mass/Vol] Ordered By: Ephraim Santoyo on 10-14-2022 Globulin (S) [Mass/Vol] 2.9 g/dL [facility] Glucose [Mass/volume] in Ser um or PlasmaOrdered By: Ephraim Santoyo on 10-14-2022 Glucose [Mass/Vol] 111 mg/dL 70-100 [facility] Comment on above: ADA recommended refe rence rangeRandom Glucose Reference Range is dependent on time and content of last meal. Glucose of more than 200 mg/dL in a nonstressed, ambulatory subject supports the diagnosis of Diabetes Mellitus. HCG ( test) IA.rapi d Ql (U)Ordered By: Ephraim Santoyo on 10-14-2022 HCG ( test) Ql (U) Negative [facility] HCG,Urineon 10-14-2022 Beta HCG ( test) Ql (U) Negative Normal [facility] Comment on above: Order Comment: Name Collection Type:: Clean-Voided Midstream Result Comment: PERF ORMED BY: [place] [address] PATHOLOGIST GATE SUPERVISOR SHANICE SOLORZANO M.D. Performed By: #### A DDONUAPLUS, UHCG, URDS, CUU #### [facility] [address] Hematocrit Auto (Bld) [Volum e fraction]Ordered By: Ephraim Santoyo on 10-14-2022 Hematocrit (Bld) [Volume fraction] 37.9 % 34.0-46.4 [facility] Hemoglobin [Mass/volume] in BloodOrdered By: Ephraim Santoyo on 10-14-2022 Hemoglobin (Bld) [Mass/Vol] 12.8 g/dL 11.8-15.4 [facility] Ketones Auto test strip (U) [Mass/Vol]Ordered By: Ephraim Santoyo on 10-14-2022 Ketones (U) [Mass/Vol] Trace Negative [facility] Leukocytes [#/volume] correc brianna for nucleated erythrocytes in Blood by Automated counOrdered By: Ephraim Santoyo on 10-14-2022 WBC corrected for nucl RBC Auto (Bld) [#/Vol] 6.8 10*3/uL 3.8-11.6 [facility] Lipid Panelon 10-14-2022 Cholesterol [Mass/Vol] 188 mg/dL Normal 140-200 [facility] Comment on above: Order Comment: Comme nt use ER blood Result Comment: Chol less than 200 mg/dl low risk Chol 201-239 mg/dl borderline risk Chol 240 mg/dl and greater high risk Performed By: #### L IPID, [id number], TSH3 wRFLX #### [facility] [address] [place] [id number] [place] Cholesterol in HDL [Mass/Vol] 44 mg/dL Normal 23-92 [facility] Comment on above: Order Comment: Comme nt use ER blood Result Comment: HDL CHOL ATP-III CLASSIFICATION Cardiovascular Risk HDL > or equal to 60 mg/dL LOW HDL < 40 mg/dL HIGH Performed By: #### L IPID, [id number], TSH3 wRFLX #### [facility] [address] Cholesterol.total/Hanna sterol in HDL [Mass ratio] 4.3 {ratio} Normal <5.0 [facility] Comment on above: Order Comment: Comme nt use ER blood Performed By: #### L IPID, [id number], TSH3 wRFLX #### [address] LDL Cholesterol,Calculated 131 mg/dL High 0-100 [facility] Comment on above: Order Comment: Comme nt use ER blood Result Comment: LDL ATP III CLASSIFICATION LDL less than 100 mg/dL Optimal LDL 100-129 mg/dL Near or above optimal LDL 130-159 mg/dL Borderline high LDL 160-189 mg/dL High LDL greater than 189 mg/dL Very high Performed By: #### L IPID, [id number], TSH3 wRFLX #### [facility] [address] [place], [place] [id number] [place] Triglyceride w/Reflex 64 mg/dL Normal 0-149 [facility] Comment on above: Order Comment: Comme nt use ER blood Result Comment: TRIG ATP III CLASSIFICATION TRIG less than 150 mg/dL Normal TRIG 150-199 mg/dL Borderline high TRIG 200-500 mg/dL High TRIG greater than 500 mg/dL Very high Standard traceable to the Center for Disease Conrtrol and Prevention (CDC) test method. Performed By: #### L IPID, [id number], TSH3 wRFLX #### [facility] [address] [place] [id number] [facility] VLDL CHOLESTEROL 12 mg/dL Normal [facility] Comment on above: Order Comment: Comme nt use ER blood Performed By: #### L IPID, [id number], TSH3 wRFLX #### [facility] [address] Lymphocytes Auto (Bld) [#/Vo l]Ordered By: Ephraim Santoyo on 10-14-2022 Lymphocytes (Bld) [#/Vol] 2.3 10*3/uL 1.00-4.8 [facility] Lymphocytes/100 WBC Auto (Bl d)Ordered By: Ephraim Santoyo on 10-14-2022 Lymphocytes/100 WBC (Bld) 33.4 % . [facility] MCH Auto (RBC) [Entitic mass ]Ordered By: Ephraim Santoyo on 10-14-2022 MCH (RBC) [Entitic mass] 31.2 pg 24.7-34.3 [facility] MCHC Auto (RBC) [Mass/Vol]Or dered By: Ephraim Santoyo on 10-14-2022 MCHC (RBC) [Mass/Vol] 33.9 g/dL 32.0-35.0 [facility] MCV Auto (RBC) [Entitic vol] Ordered By: Ephraim Santoyo on 10-14-2022 MCV (RBC) [Entitic vol] 92.0 fL 80-[address] [facility] Monocyte distribution width [Entitic volume] in Blood by AutomatedOrdered By: Ephraim Santoyo on 10-14-2022 Monocyte distribution width Auto (Bld) [Entitic vol] 17.09 % 0.00-20.00 [facility] Monocytes Auto (Bld) [#/Vol] Ordered By: Ephraim Santoyo on 10-14-2022 Monocytes (Bld) [#/Vol] 0.5 10*3/uL 0.0-0.8 [facility] Monocytes/100 WBC Auto (Bld) Ordered By: Ephraim Santoyo on 10-14-2022 Monocytes/100 WBC (Bld) 8.0 % . [facility] Mucus LM Ql (Urine sed)Order ed By: Ephraim Santoyo on 10-14-2022 Mucus Ql (Urine sed) 1+ [LPF] [facility] Neutrophils Auto (Bld) [#/Vo l]Ordered By: Ephraim Santoyo on 10-14-2022 Neutrophils (Bld) [#/Vol] 3.8 10*3/uL 1.8-7.7 [facility] Neutrophils/100 WBC Auto (Bl d)Ordered By: Ephraim Santoyo on 10-14-2022 Neutrophils/100 WBC (Bld) 56.0 % . [facility] Nitrite Test strip Ql (U)Ord ered By: Ephraim Santoyo on 10-14-2022 Nitrite Ql (U) Negative Negative [facility] No Panel InformationOrdered By: Ephraim Santoyo on 10-14-2022 Estimated GFR (CKD-EPI) > 60.0 mL/Min [facility] Creatinine Clearance (Chem 100.71 [facility] Nucleated erythrocytes [Pres ence] in Blood by Automated countOrdered By: Ephraim Santoyo on 10-14-2022 Nucleated RBC Auto Ql (Bld) 0.1 /100{WBC} 0-0.5 [facility] Opiates [Presence] in Urine by Screen methodOrdered By: Ephraim Santoyo on 10-14-2022 Opiates Screen Ql (U) Negative Negative [facility] Phencyclidine Screen Ql (U)O rdered By: Ephraim Santoyo on 10-14-2022 Phencyclidine Ql (U) Negative Negative [facility] Platelet mean volume Auto (B ld) [Entitic vol]Ordered By: Ephraim Santoyo on 10-14-2022 Platelet mean volume (Bld) [Entitic vol] 8.1 fL 6.3-10.7 [facility] Platelets Auto (Bld) [#/Vol] Ordered By: Ephraim Santoyo on 10-14-2022 Platelets (Bld) [#/Vol] 291 10*3/uL 150-450 [facility] Potassium [Moles/volume] in Serum or PlasmaOrdered By: Ephraim Santoyo on 10-14-2022 Potassium [Moles/Vol] 3.3 mmol/L 3.5-5.1 [facility] Protein Auto test strip (U) [Mass/Vol]Ordered By: Ephraim Santoyo on 10-14-2022 Protein (U) [Mass/Vol] Negative Negative [facility] Protein [Mass/volume] in Ser um or PlasmaOrdered By: Ephraim Santoyo on 10-14-2022 Protein [Mass/Vol] 7.4 g/dL 6.4-8.9 [facility] RBC Auto (Bld) [#/Vol]Ordere d By: Eprhaim Santoyo on 10-14-2022 RBC (Bld) [#/Vol] 4.12 10*6/uL 3.60-5.00 [facility] Serum or plasma albumin/glob ulin mass ratioOrdered By: Ephraim Santoyo on 10-14-2022 Albumin/Globulin [Mass ratio] 1.6 {ratio} [facility] Serum or plasma anion gap de terminationOrdered By: Ephraim Santoyo on 10-14-2022 Anion gap [Moles/Vol] 12.1 mmol/L 6.0-15.0 [facility] Serum or plasma high density lipoprotein (HDL) cholesterol measurementOrdered By: Javi Maradiaga on 10-14-2022 Cholesterol in HDL [Mass/Vol] 44 mg/dL 23-92 [facility] Comment on above: HDL CHOL ATP-III CLA SSIFICATION Cardiovascular RiskHDL > or equal to 60 mg/dL LOWHDL < 40 mg/dL HIGH Serum or plasma total choles terol/high density lipoprotein (HDL) cholesterol mass ratOrdered By: Javi Maradiaga on 10-14-2022 Cholesterol.total/Hanna sterol in HDL [Mass ratio] 4.3 {ratio} <5.0 [facility] Sodium [Moles/volume] in Ser um or PlasmaOrdered By: Ephraim Santoyo on 10-14-2022 Sodium [Moles/Vol] 139 mmol/L 136-145 [facility] Specific gravity Auto test s trip (U) [Rel density]Ordered By: Ephraim Santoyo on 10-14-2022 Specific gravity (U) [Rel density] 1.024 1.001-1.030 [facility] Squamous epithelial cells de tection in urine sediment by light microscopyOrdered By: Ephraim Santoyo on 10-14-2022 Epithelial cells.squamous LM Ql (Urine sed) 5-9 [HPF] 0-2 [facility] Thyroid Stim Hormone w/Rflxo n 10-14-2022 Thyroid Stim Hormone w/Rflx 2.43 u[iU]/mL Normal 0.45-5.33 [facility] Comment on above: Order Comment: Comme nt use ER blood Performed By: #### L IPID, [id number], TSH3 wRFLX #### [facility] [address] Thyrotropin [Units/volume] i n Serum or PlasmaOrdered By: Javi Maradiaga on 10-14-2022 TSH Qn 2.43 m[IU]/L 0.45-5.33 [facility] Triglyceride [Mass/volume] i n Serum or PlasmaOrdered By: Javi Maradiaga on 10-14-2022 Triglyceride [Mass/Vol] 64 mg/dL 0-[address] [facility] Comment on above: TRIG ATP III CLASSIF ICATIONTRIG less than 150 mg/dL NormalTRIG 150-199 mg/dL Borderline highTRIG 200-500 mg/dL High TRIG greater than 500 mg/dL Very highStandard traceable to the Center for Disease Conrtrol and Prevention (CDC) test method. Urea nitrogen [Mass/volume] in Serum or PlasmaOrdered By: Ephraim Santoyo on 10-14-2022 Urea nitrogen [Mass/Vol] 10 mg/dL 7-25 [facility] Urine Cultureon 10-14-2022 Bacteria identified Cx Nom (U) No Growth 2 Days PERFORMED BY: [place] [address] PATHOLOGIST GATE SUPERVISOR SHANICE SOLORZANO M.D. Normal [facility] Comment on above: Performed By: #### A DDONUAPLUS, UHCG, URDS, CUU #### [facility] [address] [place] [address] Urine bacteria detection by automated methodOrdered By: Ephraim Santoyo on 10-14-2022 Bacteria Auto Ql (U) 2+ None Seen [facility] Urine clarity by refractomet ry automatedOrdered By: Ephraim Santoyo on 10-14-2022 Clarity Refractometry automated (U) Cloudy Clear [facility] Urine culture routineOrdered By: Ephraim Santoyo on 10-14-2022 Bacteria identified Cx Nom (U) No Growth 2 Days [facility] Urine glucose measurement by automated test strip (mass/volume)Ordered By: Ephraim Santoyo on 10-14-2022 Glucose Auto test strip (U) [Mass/Vol] Normal mg/dL Normal [facility] Urine hemoglobin detection b y automated test stripOrdered By: Ephraim Santoyo on 10-14-2022 Hemoglobin Auto test strip Ql (U) Negative Negative [facility] Urine leukocyte esterase det ection by automated test stripOrdered By: Ephraim Santoyo on 10-14-2022 Leukocyte esterase Auto test strip Ql (U) 3+ Negative [facility] Urobilinogen Auto test strip (U) [Mass/Vol]Ordered By: Ephraim Santoyo on 10-14-2022 Urobilinogen (U) [Mass/Vol] Normal mg/dL Normal [facility] Vitamin D 25 Hydroxy Totalon 10-14-2022 Vitamin D 25 Hydroxy Total 27.6 ng/mL Low 30-100 [facility] Comment on above: Order Comment: Comme nt use ER blood Result Comment: MACKENZIE MIN D STATUS 25(OH)VITAMIN D RANGE (ng/mL) Deficient <20 Insufficient 20 to <30 Sufficient 30 to 100 Reference: Jerry Goodwin, Miguelina MCDANIEL, et al. Evaluation,treatment, and prevention of vitamin D deficiency; an Endocrine Society clinical practice guideline. JCEM. 2010; 96(7):1911-30. PERFORMED BY: [place] [address] PATHOLOGIST GATE SUPERVISOR SHANICE SOLORZANO M.D. Performed By: #### L IPID, [id number], TSH3 wRFLX #### [address] Vitamin D+Metabolites [Mass/ volume] in Serum or PlasmaOrdered By: Javi Maradiaga on 10-14-2022 Vitamin D+Metabolites [Mass/Vol] 27.6 ng/mL 30-100 [facility] Comment on above: VITAMIN D STATUS 25( OH)VITAMIN D RANGE (ng/mL) Deficient <20 Insufficient 20 to <30Sufficient 30 to 100Reference: Jerry Goodwin, Miguelina MCDANIEL, et al. Evaluation,treatment, and prevention of vitamin D deficiency; an Endocrine Society clinical practice guideline. JCEM. 2010; 96(7):1911-30. WBC Auto (Bld) [#/Vol]Ordere d By: Ephraim Santoyo on 10-14-2022 WBC (Bld) [#/Vol] 6.8 10*3/uL 3.8-11.6 [facility] pH Auto test strip (U)Ordere d By: Ephraim Santoyo on 10-14-2022 pH (U) 5.5 [pH] 5.0-9.0 [facility] C.trachomatis N.gonorrhoeae DNA ,Urineon 08-20-2021 Chlamydia trachomatis DNA, Urine Negative Normal Negative [facility] Neisseria gonorrhoeae DNA, Urine Negative Normal Negative [facility] , Urineon 2 Beta HCG ( test) Ql (U) Negative Detects HCG level >20 MIU/mL [facility] UR HCG Qualitativeon 022 Beta HCG ( test) Ql (U) Negative Normal Detects HC [facility] Comment on above: Performed By: #### U HCG #### [facility] [address] [place] [id number] Urinalysis with Reflex to Cu ltureon 08-14-2021 Bilirubin Urine Negative Negative [facility] Blood, Urine Negative Negative [facility] Clarity, UA Clear Clear [facility] Color, UA Yellow Straw/Yello w [facility] Glucose, Ur Negative Negative mg/dL [facility] Ketones Ql (U) Negative Negative mg/dL [facility] Leukocyte esterase Test strip Ql (U) Negative Negative [facility] Nitrite, Urine Negative Negative [facility] pH, UA 6.5 [facility] Protein, UA Negative Negative mg/dL [facility] Specific [place], UA >=1.030 [facility] Urine Reflex to Culture Not Indicated [facility] Urobilinogen, Urine 0.2 <2.0 E.U./dL [facility] Urinalysis, reflex to cultur [place] 08-14-2021 Bilirubin Ql (U) Negative Normal Negative [facility] Comment on above: Performed By: #### U AR #### [facility] [address] [place] [address] Clarity (U) Clear Normal Clear [facility] Comment on above: Performed By: #### U AR #### [facility] [address] [place] [address] Color (U) Yellow Normal Straw/[place] [facility] Comment on above: Performed By: #### U AR #### [facility] [address] [place] [address] Glucose Ql (U) Negative Normal Negative [facility] Comment on above: Performed By: #### U AR #### [facility] [address] [place] [address] Hemoglobin Ql (U) Negative Normal Negative [facility] Comment on above: Performed By: #### U AR #### [facility] [address] [place] [address] Ketones Ql (U) Negative Normal Negative [facility] Comment on above: Performed By: #### U AR #### [facility] [address] [place] [address] Leukocyte esterase Test strip Ql (U) Negative Normal Negative [facility] Comment on above: Performed By: #### U AR #### [facility] [address] [place] [address] Nitrite Ql (U) Negative Normal Negative [facility] Comment on above: Performed By: #### U AR #### [facility] [address] [place] [address] pH (U) 6.5 [pH] Normal 5.0-9.0 [facility] Comment on above: Performed By: #### U AR #### [facility] [address] [place] [address] Protein Ql (U) Negative Normal Negative [facility] Comment on above: Performed By: #### U AR #### [facility] [address] [place] [address] Specific gravity (U) [Rel density] >=1.030 Normal 1.005-1.03 [facility] Comment on above: Performed By: #### U AR #### [facility] [address] [place] [address] Urine Reflexed to Culture Not Indicated Normal [facility] Comment on above: Performed By: #### U AR #### [facility] [address] [place] [address] Urobilinogen Qn (U) 0.2 {Morgan'U}/dL Normal < 2.0 [facility] Comment on above: Performed By: #### U AR #### [facility] [address] [place] [address] Chlamydia/Gonococcus, NAAon 03-10-2021 C. trachomatis rRNA NADEEM+probe Ql (Unsp spec) Negative Invalid Interpretation Code Negative [facility] Comment on above: Performed By: #### 1 [id number] #### [facility] [address] [place] [address] N. gonorrhoeae rRNA NADEEM+probe Ql (Unsp spec) Negative Invalid Interpretation Code Negative [facility] Comment on above: Result Comment: Perf ormed at: =G [facility] [address] [place], [place] [id number] MD Lisa Iraheta Performed By: #### 1 [id number] #### [facility] [address] [place] [address] ED Note-Physicianon 03-10-20 21 ED Note-Physician Basic Information Time Seen: Ann VALADEZ, Emeka ; Jose Cadena DO 03/05/2021 17:29 Chief Complaint Pt. presents to the ed with c/o std exposure, pt. having vaginal discharge since this morning and denies any pain. History of Present Illness 20-year-old female comes to the ED for STD evaluation. She had a recent exposure and now has had some vaginal discharge. No fever, chills, nausea, vomiting. No abdominal pain. No concern for . No urinary symptoms. No prior treatments Review of Systems A 10 point review of systems is negative except as noted above. Medical and Surgical History: Reviewed and noted Social history: Lives at home Tobacco: Denies Physical Exam Vitals & Measurements T: 36.9 ?C(Oral) HR: 95(Peripheral) RR: 18 BP: 117/74 SpO2: 99% HT: 157 cm HT: 157.0 cm WT: 49 kg WT: 49.0 kg BMI: 19.88 Nurses notes and vital signs reviewed and patient is not hypoxic. General: The patient appears well, resting comfortably. Skin: Warm, dry. Head: Atraumatic. Neck: No JVD. Eye: Normal conjunctiva. Ears, Nose, Mouth, and Throat: Moist mucous membranes. Cardiovascular: Strong distal pulses. Chest wall: Respiratory: Respirations are nonlabored. Back: Normal range of motion. Musculoskeletal: Normal ROM with no gross deformity. Gastrointestinal: Urological: Deferred Neurological: Awake and alert. No focal deficits. Follows commands. Psychiatric: Cooperative. Medical Decision Making Patient deferred pelvic examination. GC and Chlamydia urine testing is pending. She is treated empirically with ceftriaxone, Flagyl, doxycycline. She is discharged home with PCP follow-up. Patient was encouraged to return to the ED if symptoms worsen or change. Assessment/Plan STD exposure (Z20.2: Contact with and (suspected) exposure to infections with a predominantly sexual mode of transmission) Orders: ceftriaxone, 500 mg = 1 EA, Injection, IntraMuscular, Once, Stop date 03/05/21 17:29:00 EST, STAT, Start date 03/05/21 17:29:00 EST, 03/05/21 17:29:00 EST doxycycline, 100 mg = 1 tab(s), Oral, BID, X 10 day(s), # 20 tab(s), Refills(s) 0, Pharmacy: [facility], 157, cm, 03/05/21 17:28:00 EST, Height/Length Dosing, 49, kg, 03/05/21 17:28:00 EST, Weight Dosing metronidazole, 2,000 mg = 4 tab(s), Tab, Oral, Once, Stop date 03/05/21 17:30:00 EST, STAT, Start date 03/05/21 17:30:00 EST, 03/05/21 17:30:00 EST ondansetron, 4 mg = 1 tab(s), Tab-Dis, Oral, Once, Stop date 03/05/21 17:30:00 EST, STAT, Start date 03/05/21 17:30:00 EST, 03/05/21 17:30:00 EST Chlamydia/Gonococcus, NADEEM Disposition Plan Patient Discharge Condition Disposition: Discharged home Condition: Improved and stable Counseled: Patient and/or family were counseled to workup, results, treatment plan and follow-up recommendations Discharge Prescription List Prescriptions doxycycline monohydrate 100 mg oral tablet, 100 mg= 1 tab(s), Oral, BID Follow-up With When Contact Information Melo Beltran In 3 days 03/08/[address] [place] [id number] [facility] (1) Additional Instructions: Patient Education Safe Sex Attestation Patient seen and evaluated by the physician cataloging assistant. Attending physician was present in the emergency department and supervised care. This report was transcribed using voice recognition software. Every effort was made to ensure accuracy, however, inadvertently computerized geologic technician mistakes may be present. Appropriate healthcare PPE was used in evaluating this patient. The patient was placed in a mask. The healthcare provider was wearing mask, gloves, googles and utilizing proper hand hygiene. All equipment was properly cleansed. I was physically present throughout the patient's stay in the emergency department and I was immediately available to the physician cataloging assistant/nurse practitioner at all times during this encounter. I did not provide [id number] evaluation/service during this encounter. Problem List/Past Medical History Ongoing Smoker Historical None Procedure/Surgical History None. Medications Inpatient cefTRIAXone IM, 500 mg= 1 EA, IntraMuscular, Once Flagyl 500 mg Tab, 2000 mg= 4 tab(s), Oral, Once Zofran ODT 4 mg Tab-Dis, 4 mg= 1 tab(s), Oral, Once Home doxycycline monohydrate 100 mg oral tablet, 100 mg= 1 tab(s), Oral, BID Naprosyn 500 mg Tab, 500 mg= 1 tab(s), Oral, BID Allergies No Known Allergies Social History Alcohol - Denies Alcohol Use, 08/27/2017 1-2 times per month, 06/29/2018 Current, 1-2 times per month, Alcohol use interferes with work or home: No. Drinks more than intended: No. Others hurt by drinking: No. Ready to change: No. Household alcohol concerns: No., 03/12/2018 Current, 01/12/2018 Substance Abuse - Denies Substance Abuse, 08/27/2017 Current, 03/12/2018 Current, 01/12/2018 Tobacco - High Risk, 08/27/2017 Former smoker, quit more than 30 days ago Tobacco Use:. uses e-cig, 06/29/2018 5-9 (more content not included)... Normal [facility] Comment on above: Result Comment: Elec tronically Signed By: Emeka Juarez PA-C\.br\Date and Time Signed: 03/05/21 17:34 EST\.br\Electronically Co-Signed By: Jose Cadena DO\.br\Date and Time Co-Signed: 03/10/21 09:38 EST Coding Summary.on 03-06-2021 Coding Summary. CD:[id number] Ww+[id number] SLbgM7UV5hQNX6GWNAWMQYON C9YWP9hgBV5OMfzV1TvjnGu AnohsJVjAS92KHr8XQH5mXio JDdgbR6icGDaU3k2JqGsGZ35 xL60PRkbOIBeRgM1TeFtcnwc bWFy X6afUtApdJQiJta+PHRhYmxl IHdpZHRoPScxMDAlJyBzdHls TA1zAv6bDJEkXUApgZlohNLv OiBj r8wcMLVaAQpeDY0ibStfP8Be bUT3VZVkq8b9Zd73vYJ+PHRk PJY6gYwpCVvok681DcAex3fd IDM3 uICrWTouZOE7B21tm0D2HKRj NIMrAIR5tPO8fP0cbHfqtquz S6WwcLReYmG5CGI1bDMayZ1f bGln pashhL0pHpv+T40WCU7BVHHQ MT9RXnh3G8HbKeoklTO+PC90 ZJSaEU76zVItcMXlo9dpcXl8 JzEw AZLlHBU0aBscUQald9SfUHOm Q85sfKGuq3N5NDEpqThxlTIf VdFgaNW2bT1dVSzrrtxsz9mb dzsn Cgbdt0whsp90gI39E89yPZqz LKSmSCE5WPHrJNZzrNemte6l bN7qOp0+ELtvg7wne6lumXi0 IjIw JBGksrYykJijKMX9t0MiQp39 C9QtxFzww2OpTqv9pd68sNTn o2X7mYG4HXhdUXFwhG0yIOsa ZnQ6 ZTDiMvIsrB99hNZhESnbTu4n pOpbwDctDN3oVFXbneoeJCHw fN7vUKDtmSNbiZxpGI1eUVWh bjtm f111RcHpMDP5QJAlyEMoL0Vv zZ0jCgWfXBNiMPHfF9YdeBNt EEfcN513TSwgPeB3ZPEyuxAr Y2Fs NHRedZnkYoS6f9Y9Cw5Gy6Tc fsyfMNC3SZhmTLFgJgSsErLf KaS0R7IqAsx4ZFUphVbwGZ0a J3Bh ZQNxmjzhzrpasSR5ERNpGOQe oH31aVQvVAhbKy3tg3D3e652 WDZgUQWvtA47Us0vaMnuHHUv dCBU qU9iuykny2ffytyxWlKlPNOx TFt4HKz9BWVrrQhxQdDaPMC0 VjW9YBN9rZWltT7sjYdktuxd dG9w Oyc+S86naL7cDQD1NRG3olxz YGHrnxRvGM37XC11B4TrZvjm dGFibGU+LCCfqpDwaTlyKF4j YmFj y8vwt7KeKOsbC7HzEARgHVnx Ygl9ALHaEVW4tZU3dC2hVUHk KFzst3M8pWR8K7NmxnVzmf0b b2xs USNcUZcdT89eoSRmy1P7FHXt oOM2HTKesVktMyDwiB62Aza+ VQRafRooi3EoFbdzm5mqi1rc dGg9 QqBqYOMyclUyqNtcBDQ5i9Si Fb07W40jYBlbQVMtCUPwIWYm VVLqcMfqka3puR3hSj6+PGNv bCB3 gCY2gG0rCJYvDgQ9MLckH108 ToChsKOoIzvcc1dwv9hypRp4 MmDyHUHjgiQawWerEBH2b0Ng Lz48 R17kYIxpMCAwCQCnZCIiJUBf xRofqz0mcY5hWk7+TY4vi2mg hp42mA08tEK+HSUzNAY7rQaj PSdw DWVbnZ1fHDnoVbP3VXWxRjCm cC78bPAuSTsaQh2dmKddiNvd UT8eDVBtxyira491EbJrp3xb IDEw aLPsADlcOUK2Z21xd3R3HFTs UXWyDZZ5uEO4fC1fhChnqihu bGVmdDsgdmVydGljYWwtYWxp Z246 IHRvcDsnPlBhdGllbnQgTmFt DUn9A8UoFwy6SDChmVjdKK0a jUHiXVuqQh8hoLjwrAxzII0n NTBp qogxn028QbYho2shNYZsuZQl PGrxYZT7R00ta6D0SFZzWSMv QDU6dDO3jX9jhYucbdzvqNFu dDsg poRenWshEIuxZDomV532XVWn uHdtNmNtsrFlARUioGB0PC91 XV61jDHqb1Y0oYD4X3ZsGUOq bmct cqoctJK4JIWiGOGanH87Uv6v pEhhOd9bWITcUDV1PUAnfAJq T6UnpW8bPkVnCWLdBEWkJ6Ni eHQt XGotF709AJpkUtB9WEBqwwXd U2PvMNTfoLabKaR9c1X6No6Q A6L7XN83SM41uLWls2G7nBG0 J3Bh ESUmvbbxgulwaRT9SOThKGLx qQ25Ku6bzMavEb1aWGRfCUK1 WOIgcDCyD2UmxI5vDoEjMLBs MDAw S4XikBGtOEvuC907JDasOjX4 FKNwtaNvZ9XiOQUghEzlFxS0 v1Q5Bx7SWFd7PQ10HF55tUTq c3R5 nHQ7A6WgYLHmezikiohtqVL3 BSLiPMRutY93Rz6xkAbqIh6h IYVkSOX6FMAkdCHkS5IgvF0d OiAj MNErSIXvZ0JnuADsJAkfQ656 HTfzGgI6DTDqbbUaZ7AbNSBc aCxpBrS8x8O6Or8ONYFbZE70 IFR5 rYZ7GW06BV60A3HlAncckOJd bGU+PHRhYmxlIHdpZHRoPScx XSUjLxSlwAceTH0jCm5oFFQc LWNv iNxpfUJkEyQtk7dsRSDnZLyt JA4xnEpiU9LknRU3ZZLem4v6 Kd96R18eH1QtoCZ+PGNvbCB3 aWR0 aC7nSiMqTsL2QUtkF575VxMe gGXvMulyg7gwu7vfeFa5JzD9 OXDzscXsiDxiRKU0m8SdLb21 Y29s IHdpZHRoPSIxNSUiIHZhbGln bm8yeP5tRk0+GGUjlMX5jYB9 bL3nNtQzRtP6OUjqR250KeRq cCIv Iqibo9zmf2eiqPc4ZcFjVTWr wmEuwEbzDTL4f6TsHp61E0Px kYlas1RgHwb1jc12jDWdw1C8 bGU9 S9UnUBViqtsaiNLzaNicWB3w JWCgmhxnKDGpgS4lJTTdS7o0 QoPcWbR3BVveV5DemqO0NEZi cHQg FSjrUAX1Y69tk7X3WNZyZLIk BSZ3cRG1kX1qyPjdcfuzxPSf gXzsstXwnIwvXCdgLYisQ854 IHRv pNwrPICepN7oUNJbjJSahTeo EG5zVRGgrhlmDgdXTxAMIvid RkVMSUNJVFkgWTwvdGQ+PHRk IHN0 gTxjKIddEJBrhI7pRZRaN5z5 RvIgYxP7DDqqO7AhVEImkuot Rp47zE2cQyYtWtI1EXjnK2Fc bnQ6 XQXctUApSVleCSP0U88mg5F3 IUOvQJXsVAQ0nQK7aT6vjSfi bjogbGVmdDsgdmVydGljYWwt YWxp R021XZFfeYgtOtGvCdI4KjT6 TDm0P8XtJlo1ACBlvRbsEY8a fRYoYUjyDg7kdCbvdHmjET0p NTBp vqkmUTYhsF9iPYBetDExaEvk SJ0rWFSypothr741DgOjWUH0 MMSaiLIhV4FsgD7gZrLlPRCr MDAw S0IysMRkQNgvE592WMztUcD8 PRQgdaHlJ2ClCTQkgVxbAyW8 b9B3Ej1pGsEBWCWurvcnjDV+ PHRk AHO7fCjpOOcwXASwxM3fGHHj A1p3LkNpAaM0VSwnL7RhCZNw niwtTo26gJ0aOkPqBrT8KCsq O2Zv ojL3IJOwrSMaVNjnLIG8H81d a8K2OJFrEXPkJTS3eAK5eW0v bGlnbjogbGVmdDsgdmVydGlj YWwt PIlzW374TVXdsPgvOiWieMLx ZTwvdGQ+GAKdVCW3vDrxUHyj RTAieG8rEHRnY6t0BpCfHeA3 MGlu C8WcWIHhuhprXs07pV2lXkTg PfC0JBtxC8IisdA7YIPprFBw MEquFMU7Y81dv7Z7PBJhKDQo MDA7 pUS6zC4diGoyonrwhKHwhIsd rmUchGdzFYckUKtiG257RILl nIeuEtNeYFHiXK0ixJhpnYF+ PC90 ll72Y0UjPgzuArg3HOUzPGI3 rBZ1uO5fRFYbMPair5Q5oHK1 K4TiuiFowv7vf8oxLPGmULfs Y29s xEOpg1E1PWBxrLP5SNFqnIvk GaLaxP55Pfs+XOUkrVqwu4Pk Rrgwq1lvv1xjnUt9NpUzLZIw dmFs pOewYKS2f2VoUb93A57mSNld CAIzGYSeTMKkEJDdjOzlqb6a eL3gQl6+WRAvjVY3bFX5mX5k MjAl CzM5GTnmB529TqFtjGWaEzzr y1upw7qpeCb0IiUnCMZmpiQe nJylXIZ1e6NnDs60B2TmuDyq b3Vw Lyu4sk20sFPvk7H2dQP3S0Rd ULOthhsrmSTpmCppNL9rGZYz joyhOJVwaQ8rMYGkU9t8ZjEv LjA1 XCgfT3VhhrG7OXDeaXFtYGLa kIHQpZ8ozfnnl4gcpmcjKgVo MVWrVOq2XJf5JKVjfLbgSvNp ZWZ0 HxJ8CDQ5wFGnnV6nrCuecvdy fD4dLvr+IGm6q4pjuDVrNA4h tXH3VH95ZI69lMIkd9X4iJP6 J3Bh JMEuagpwpjjffSF4BIYnPGJm hO82Zt5wvUwaCn5qQSUhVOA1 ELSjiFFaL1AilT0eMkTmEHFk MDAw R6VcxZWkXCqeO168RChyZuL5 KOCrbgJcP3MrFIUzoWvaYfP6 n5X4Gb5TCG11FS08KO15kXIl c3R5 vAZ1X7PyPYWpjdohyouieUO1 SDRqSJEkdI20Dc3ojZbsDu3c FHZyIYZ0IAVmnHEgV3BhyW7j OiAj KJPaJURwD3EzpJOcDJgeE731 LHfuXfT0SOLwcdMqE5FoRJXq sTcwHdJ0s7A6Fd3YDr79LO05 ZD48 zLBnw4Y2jOG5W5VtMHMrshvx sqbsuIE7MZFjHJHfoJ60Bm0i mCgyIz7fTNCiKQD2SKFctLLk O2Nv fS3tXdNtICXaYGNiD2ZjiOBt DPvzQ783HTkxNzT8EVTwsdQh H2JhKEIqsHtrErJ7s7E3Fw8L YXll ncu1I9VjLnavoYL+FT05KLBw EC60qKCrmOUhf6levFo4QlWp TMMpOUI0eUspMJbsx5XfTFLu Y29s bGFw (more content not included)... Normal [facility] Consent for Treatmenton 02-12 Consent for Treatment [id number]: 127 Normal [facility] Discharge Instructionson Discharge Instructions [id number] :127 Normal [facility] ED Clinical Summaryon 2020 ED Clinical Summary (Inserted Image. Gloria ble to display) [address] [address] ED Clinical Summary Person Information Name: DEIRDRE OMER Maria [place] Age: 20 Years : 2000 Sex: Female Language: Singaporean PCP: Melo Beltran III, DO Marital Status: Single Phone: [phone] Visit Id: Visit Reason: STD exposure; POS STD Speciality: Acuity: 4 Enc Type: Emergency Med Service: Emergency Arrival: 03/05/2021 17:17:22 Discharge: 03/05/2021 18:06:07 LOS: 000 00:49 Checkin: 03/05/2021 17:17:22 Checkout: 03/05/2021 18:06:07 Dispo Type: Home (Routine DC) EVENTS: Event Name Event Status Request Date/Time Start Date/Time Complete Date/Time Arrive Complete 03/05/2021 17:17:22 03/05/2021 17:17:22 03/05/2021 17:17:22 Document Home Meds Request 03/05/2021 17:17:22 Triage Complete 03/05/2021 17:17:22 03/05/2021 17:28:58 03/05/2021 17:28:58 Bed Assign Complete 03/05/2021 17:20:50 03/05/2021 17:20:50 03/05/2021 17:20:50 Dr Exam Complete 03/05/2021 17:20:50 03/05/2021 17:28:50 03/05/2021 17:28:50 RN Exam Complete 03/05/2021 17:20:50 03/05/2021 17:41:46 03/05/2021 17:41:46 Registration Complete 03/05/2021 17:28:50 03/05/2021 17:34:41 03/05/2021 17:34:41 Dr Exam Complete 03/05/2021 17:29:25 03/05/2021 17:29:25 03/05/2021 17:29:25 Dr Exam Complete 03/05/2021 17:29:25 03/05/2021 17:29:25 03/05/2021 17:29:25 Meds Admin Complete 03/05/2021 17:30:53 03/05/2021 17:37:04 Pending Labs Collected 03/05/2021 17:30:53 Discharge Complete 03/05/2021 17:31:02 03/05/2021 18:06:13 03/05/2021 18:06:13 Reg Complete Request 03/05/2021 17:34:41 Reg Bed Request Complete 03/05/2021 17:34:41 03/05/2021 17:34:41 03/05/2021 17:34:41 Transfer Complete 03/05/2021 18:06:13 03/05/2021 18:06:13 03/05/2021 18:06:13 ADDRESS: [address] [facility] E [id number] PHYS DOC NOTES: MEDICAL INFORMATION: Prescriptions Given: New Medications [facility] 1988, [address] [place] [id number], [phone] doxycycline (doxycycline monohydrate 100 mg oral tablet) 1 Tablets By Mouth 2 times a day for 10 Days. Refills: 0. Medications to Continue with No Changes Other Medications naproxen (Naprosyn 500 mg Tab) 1 Tablets By Mouth 2 times a day. Refills: 0. PATIENT EDUCATION INFORMATION: Instructions: Safe Sex Follow up: With: Address: When: Melo Beltran [address] [place] [address] [place] [address] Business (1) In 3 days 03/08/2021 DIAGNOSIS: STD exposure Normal [facility] ED Patient Education Noteon 03-05-2021 ED Patient Education Note Obstetrics and Gynecology Safe Sex Practicing safe sex means taking steps before and during sex to reduce your risk of: ? Getting an STI (sexually transmitted infection). ? Giving your partner an STI. ? Unwanted or unplanned . How can I practice safe sex? Ways you can practice safe sex ? Limit your sexual partners to only one partner who is having sex with only you. ? Avoid using alcohol and drugs before having sex. Alcohol and drugs can affect your judgment. ? Before having sex with a new partner: ? Talk to your partner about past partners, past STIs, and drug use. ? Get screened for STIs and discuss the results with your partner. Ask your partner to get screened, too. ? Check your body regularly for sores, blisters, rashes, or unusual discharge. If you notice any of these problems, visit your health care provider. ? Avoid sexual contact if you have symptoms of an infection or you are being treated for an STI. ? While having sex, use a condom. Make sure to: ? Use a condom every time you have vaginal, oral, or anal sex. Both females and males should wear condoms during oral sex. ? Keep condoms in place from the beginning to the end of sexual activity. ? Use a latex condom, if possible. Latex condoms offer the best protection. ? Use only water-based lubricants with a condom. Using petroleum-based lubricants or oils will weaken the condom and increase the chance that it will break. Ways your health care provider can help you practice safe sex ? See your health care provider for regular screenings, exams, and tests for STIs. ? Talk with your health care provider about what kind of control (contraception) is best for you. ? Get vaccinated against hepatitis B and human papillomavirus (HPV). ? If you are at risk of being infected with HIV (human immunodeficiency virus), talk with your health care provider about taking a prescription medicine to prevent HIV infection. You are at risk for HIV if you: ? Are a man who has sex with other men. ? Are sexually active with more than one partner. ? Take drugs by injection. ? Have a sex partner who has HIV. ? Have unprotected sex. ? Have sex with someone who has sex with both men and women. ? Have had an STI. Follow these instructions at home: ? Take xllp-poc-rslagrc and prescription medicines as told by your health care provider. ? Keep all follow-up visits as told by your health care provider. This is important. Where to find more information ? Centers for Disease Control and Prevention: https://www.cdc.gov/std/ prevention/default.htm ? Planned Parenthood: https://www.plannedparen ood.org/ ? Office on Women's Health: https://www.womenshealth .gov/a-z-topics/sexually -transmitted-infections Summary ? Practicing safe sex means taking steps before and during sex to reduce your risk of STIs, giving your partner STIs, and having an unwanted or unplanned . ? Before having sex with a new partner, talk to your partner about past partners, past STIs, and drug use. ? Use a condom every time you have vaginal, oral, or anal sex. Both females and males should wear condoms during oral sex. ? Check your body regularly for sores, blisters, rashes, or unusual discharge. If you notice any of these problems, visit your health care provider. ? See your health care provider for regular screenings, exams, and tests for STIs. This information is not intended to replace advice given to you by your health care provider. Make sure you discuss any questions you have with your health care provider. Document Released: 04/07/2005 Document Revised: 06/22/2019 Document Reviewed: 12/11/2018 Elsevier Patient Education ? 2019 [employer]. Normal [facility] ED Patient Summaryon 021 ED Patient Summary (Inserted Image. Gloria ble to display) [address] [address] Patient Discharge Instructions Person Information Name: DEIRDRE OMER Age: 20 Years Arrival Date: 03/05/2021 17:17:22 Discharge Diagnosis: STD exposure Primary Care Physician: Melo Beltran III, DO Provider Information Primary Provider: Jose Cadena DO Advanced Screw Supervisor:Emeka Juarez PA-C The exam and treatment you received in the Emergency Department were for an urgent problem and are not intended as complete care. It is important that you follow up with a doctor, nurse practitioner, or physician?s cataloging assistant for ongoing care. If your symptoms become worse or you do not improve as expected and you are unable to reach your usual health care provider, you should return to the Emergency Department. We are available 24 hours a day. DEIRDRE OMER has been given the following list of patient education materials, prescriptions and follow-up instructions: Follow-up Instructions: With: Address: When: Melo Beltran [address] [place] [address], [facility], [place] [address] Business (1) In 3 days 03/08/2021 In the event that this physician does not participate in your insurance network, please consult with your insurance company to find a nearby participating provider. Patient Education Materials: Safe Sex A MESSAGE TO ALL PATIENTS REGARDING OPIOIDS PRESCRIPTION OPIOIDS: WHAT YOU NEED TO KNOW Prescription opioids can be used to help relieve svdiraus-ry-eqmnom pain and are often prescribed following a surgery or injury, or for certain health conditions. These medications can be an important part of the treatment but also come with serious risks. It is important to work with your healthcare provider to make sure you are getting the safest, most effective care. WHAT ARE THE RISKS AND SIDE EFFECTS OF OPIOID USE? Prescription opioids carry serious risks of addiction and overdose, especially with prolonged use. An opioid overdose, often marked by slowed breathing, can cause sudden . The use of prescription opioids can have a number of side effects as well, even when taken as directed: ? Tolerance?meaning you might need to take more of the medication for the same pain relief ? Physical dependence?meaning you have symptoms of withdrawal when a medication is stopped ? Increased sensitivity to pain ? Constipation ? Nausea, vomiting, and dry mouth ? Sleepiness and dizziness ? Confusion ? Depression ? Low levels of testosterone that can result in lower sex drive, energy, and strength ? Itching and sweating RISKS ARE GREATER WITH: ? History of drug misuse, substance use disorder, or overdose ? Mental health conditions (such as depression or anxiety) ? Sleep apnea ? Older age (65 years and older) ? Avoid alcohol while taking prescription opioids. Also, unless specifically advised by your health care provider, medications to avoid include: ? Benzodiazepines (such as Xanax or Valium) ? Muscle relaxants (such as Soma or Flexeril) ? Hypnotics (such as Ambien or Lunesta) ? Other prescription opioids KNOW YOUR OPTIONS Talk to your health care provider about ways to manage your pain that don?t involve prescription opioids. Some of these options may actually work better and have fewer risks and side effects. Options may include: ? Pain relievers such as acetaminophen, ibuprofen, and naproxen ? Some medication that are also used for depression or seizures ? Physical therapy and exercise ? Cognitive behavioral therapy, a psychological, goal-directed approach, in which patients learn how to modify physical, behavioral, and emotional triggers of pain and stress. IF YOU ARE PRESCRIBED OPIOIDS FOR PAIN: ? Never take opioids in greater amounts or more often than prescribed. ? Follow up with your primary health care provider. o Work together to create a plan on how to manage your pain. o Talk about ways to help manage your pain that don?t involve prescription opioids. o Talk about any and all concerns and side effects. ? Help prevent misuse and abuse o Never sell or share prescription opioids. o Never use another person?s prescription opioids. ? Store prescription opioids in a secure place and out of reach of others (this may include visitors, children, friends, and family). ? Safely dispose of unused prescription opioids: Find your community drug take-back program or your pharmacy mail-back program, or flush them down the toilet, following guidance from the Food and Drug Administration (www.fda.gov/Drugs/Resou rcesForYou). ? Visit www.cdc.gov/drugoverdose to learn about the risks of opioids abuse and overdose. ? If you believe you may be struggling with addiction, tell your health live in caregiver and ask for guidance or call [facility]?S National Helpline at 3-090-843-KFDC. j Source (more content not included)... Normal [facility] CHLAMYDIA/GONOCOCCUS NADEEM (SW AB/URINE/PAPon 01-17-2021 Chlamydia trachomatis, NADEEM Negative Normal Negative [facility] Comment on above: Performed By: #### C T/NGNA #### [facility] [address] [place] [address] Dr. Sapna Khan Neisseria gonorrhoeae, NADEEM Negative Normal Negative [facility] Comment on above: Performed By: #### C T/NGNA #### [facility] [address] [place] [address] Dr. Sapna Khan VAGINITIS/VAGINOSIS DNA PROB [place] 01-17-2021 Abby species Negative Normal Negative [facility] Comment on above: Performed By: #### V AGINT #### [facility] [address] [place] [address] Dr. Sapna Khan Gardnerella vaginalis Positive Abnormal Negative [facility] Comment on above: Performed By: #### V AGINT #### [facility] [address] [address] [address] Sapna Khan Trichomonas vaginalis Negative Normal Negative [facility] Comment on above: Performed By: #### V AGINT #### [facility] [address] [address] [address] Sapna Khan CHLAMYDIA/GONOCOCCUS NADEEM (SW AB/URINE/PAPon 05-06-2020 Chlamydia trachomatis, NADEEM Negative Normal Negative [facility] Comment on above: Performed By: #### C T/NGNA #### [facility] [address] [place] [address] Loyda Garcia Neisseria gonorrhoeae, NADEEM Negative Normal Negative [facility] Comment on above: Performed By: #### C T/NGNA #### [facility] [address] [place] [address] Loyda Garcia VAGINITIS/VAGINOSIS DNA PROB [place] 05-03-2020 Abby species Positive Abnormal Negative [facility] Comment on above: Performed By: #### V AGINT #### [facility] [address] [address] Loyda Garcia Gardnerella vaginalis Positive Abnormal Negative [facility] Comment on above: Performed By: #### V AGINT #### [facility] [address] [place] [address] Loyda Garcia Trichomonas vaginalis Negative Normal Negative [facility] Comment on above: Performed By: #### V AGINT #### [facility] [address] [place] [address] Loyda Garcia BASIC METABOLIC PANELon 03-0 Anion gap [Moles/Vol] 17 mmol/L Normal 10 - 20 [facility] Comment on above: Performed By: #### B MP #### [address] [address] Calcium [Mass/Vol] 9.2 mg/dL Normal 8.6 - 10.3 [facility] Comment on above: Performed By: #### B MP #### [address] [address] Chloride [Moles/Vol] 104 mmol/L Normal 98 - 107 [facility] Comment on above: Performed By: #### B MP #### [address] [address] Creatinine [Mass/Vol] 0.53 mg/dL Normal 0.50 - 1.05 [facility] Comment on above: Performed By: #### B MP #### [address] [address] GFR- AM. >60 Normal >60 [facility] Comment on above: Result Comment: CALC ULATIONS OF ESTIMATED GFR ARE PERFORMED USING THE MDRD STUDY EQUATION FOR THE IDMS-TRACEABLE CREATININE METHODS. CLIN CHEM 2007;53:766-72 Performed By: #### B MP #### [address] [address] GFR-NON AM. >60 Normal >60 [facility] Comment on above: Performed By: #### B MP #### [address] [address] Glucose [Mass/Vol] 94 mg/dL Normal 74 - 99 [facility] Comment on above: Performed By: #### B MP #### [address] [address] HCO3 (Bld) [Moles/Vol] 20 mmol/L Low 21 - 32 [facility] Comment on above: Performed By: #### B MP #### [address] [address] Potassium [Moles/Vol] 3.2 mmol/L Low 3.5 - 5.3 [facility] Comment on above: Performed By: #### B MP #### [address] [address] Sodium [Moles/Vol] 138 mmol/L Normal 136 - 145 [facility] Comment on above: Performed By: #### B MP #### [address] [address] Urea nitrogen [Mass/Vol] 5 mg/dL Low 6 - 23 [facility] Comment on above: Performed By: #### B MP #### [address] [address] CBC AND DIFFERENTIALon 05-17 % AUTOMATED IMMATURE GRAN 0.6 % Normal 0.0 - 0.9 [facility] Comment on above: Result Comment: Dania ture Granulocyte Count (IG) includes promyelocytes, myelocytes and metamyelocytes but does not include bands. Percent differential counts (%) should be interpreted in the context of the absolute cell counts (cells/L). Performed By: #### C BCDF #### [address] [place] [address] Basophils (Bld) [#/Vol] 0.03 10*3/uL Normal 0.00 - 0.1 0 [facility] Comment on above: Performed By: #### C BCDF #### [address] [address] Basophils/100 WBC (Bld) 0.2 % Normal 0.0 - 2.0 [facility] Comment on above: Performed By: #### C BCDF #### [address] [address] Eosinophils (Bld) [#/Vol] 0.07 10*3/uL Normal 0.00 - 0.70 [facility] Comment on above: Performed By: #### C BCDF #### [address] [address] Eosinophils/100 WBC (Bld) 0.6 % Normal 0.0 - 6.0 [facility] Comment on above: Performed By: #### C BCDF #### [address] [address] Erythrocyte distribution width (RBC) [Ratio] 12.7 % Normal 11.5 - 14.5 [facility] Comment on above: Performed By: #### C BCDF #### [address] [address] Hematocrit (Bld) [Volume fraction] 35.5 % Low 36.0 - 46.0 [facility] Comment on above: Performed By: #### C BCDF #### [address] [address] Hemoglobin (Bld) [Mass/Vol] 12.0 g/dL Normal 12.0 - 16.0 [facility] Comment on above: Performed By: #### C BCDF #### [address] [address] Lymphocytes (Bld) [#/Vol] 1.99 10*3/uL Normal 1.20 - 4.80 [facility] Comment on above: Performed By: #### C BCDF #### [address] [address] Lymphocytes/100 WBC (Bld) 16.1 % Normal 13.0 - 44.0 [facility] Comment on above: Performed By: #### C BCDF #### [address] [address] MCHC (RBC) [Mass/Vol] 33.8 g/dL Normal 32.0 - 36.0 [facility] Comment on above: Performed By: #### C BCDF #### [address] [address] MCV (RBC) [Entitic vol] 92 fL Normal 80 - 100 [facility] Comment on above: Performed By: #### C BCDF #### [address] [address] Monocytes (Bld) [#/Vol] 0.80 10*3/uL Normal 0.10 - 1.0 0 [facility] Comment on above: Performed By: #### C BCDF #### [address] [address] Monocytes/100 WBC (Bld) 6.5 % Normal 2.0 - 10.0 [facility] Comment on above: Performed By: #### C BCDF #### [address] [address] Neutrophils (Bld) [#/Vol] 9.37 10*3/uL High 1.20 - 7.70 [facility] Comment on above: Performed By: #### C BCDF #### [address] [address] Neutrophils/100 WBC (Bld) 76.0 % Normal 40.0 - 80.0 [facility] Comment on above: Performed By: #### C BCDF #### [address] [address] Platelets (Bld) [#/Vol] 259 10*3/uL Normal 150 - 450 [facility] Comment on above: Performed By: #### C BCDF #### [address] [address] RBC (Bld) [#/Vol] 3.85 x10E12/L Low 4.00 - 5.20 [facility] Comment on above: Performed By: #### C BCDF #### [address] [address] WBC (Bld) [#/Vol] 12.3 10*3/uL High 4.4 - 11.3 [facility] Comment on above: Performed By: #### C BCDF #### [address] [address] HCG,BETA-QUANTon 05-18-2019 HCG,BETA-QUANT [address] mIU/mL Abnormal [facility] Comment on above: Result Comment: Low- level positive HCG results can be seen in early , in che- or post-menopausal females due to normal pituitary HCG production, or with analytic interference. Repeat testing in 48-72 hours can aid in assessing for as results should double in this time period. FSH measurement is recommended in che- or post-menopausal females as concurrent elevation of FSH can support pituitary production as the source of the HCG elevation. . Total HCG measurement is performed using the [employer] [place] Access Immunoassay which detects intact HCG and free beta HCG subunit. This test is not indicated for use as a tumor marker. HCG testing is performed using a different test methodology at [facility] than other [facility]. Direct result comparison should only be made within the same method. REF VALUES NON FEMALE <5 MALES <5 Performed By: #### H CGQU #### [address] [address] INFLUENZA A + B PCRon 2019 INFLUENZA A, PCR NOT DETECTED Normal Not Detected [facility] Comment on above: Result Comment: Resp iratory virus testing is performed routinely by PCR for Influenza A/B and RSV. Not Detected results do not preclude Influenza A/B or RSV infections since the adequacy of sample collection or low viral burden may impact the clinical sensitivity of this test method. Performed By: #### I NFLP #### [address] [address] INFLUENZA B, PCR NOT DETECTED Normal Not Detected [facility] Comment on above: Result Comment: Resp iratory virus testing is performed routinely by PCR for Influenza A/B and RSV. Not Detected results do not preclude Influenza A/B or RSV infections since the adequacy of sample collection or low viral burden may impact the clinical sensitivity of this test method. Performed By: #### I NFLP #### [address] [address] Lab Specimen Source Nasal, Nasopharyngeal Normal [facility] Comment on above: Performed By: #### I NFLP #### [address] [address] Provider Note - ED v2on Provider Note - ED v2 Provider Note - ED v2: Chart Review: ED NOTES ED NOTES: A female patient comes in the emergency Department today with complaints of nausea, vomiting this started yesterday. States he has accompanying fevers and chills. She states she is approximately 22 weeks , . She describes that she's having abdominal pain that she rates an 8 out of 10 on the pain scale. She denies any vaginal bleeding. HISTORY OF PRESENTING ILLNESS DEIRDRE is a 18 year old Female and was seen by me at 18-May-2019 01:46 for a chief complaint of nausea . The historian is the patient. Triage Information: Most recent Vital Sign Value Date Temp (F): 97.5 05-18-2019 01:55 Temp (C): 36.4 05-18-2019 01:55 Heart Rate (beats/min): 81 05-18-2019 01:55 Respirations (breaths/min): 20 05-18-2019 01:55 SpO2 (%): 99 05-18-2019 01:55 BP Systolic (mm Hg): 123 05-18-2019 01:55 BP Diastolic (mm Hg): 61 05-18-2019 01:55 Presenting Symptoms: fever. Located in the: epigastric area. The quality is aching. The context is Unknown. The symptoms started yesterday. PAST MEDICAL HISTORY ATTESTATION: I have reviewed and confirmed nurse's/medic's notes for patient's medications, allergies, medical history, and surgical history ALLERGIES/INTOLERANCES: No Known Allergies HEALTH HISTORY: No documented data. OUTPATIENT MEDICATIONS: Home Medications Review Status for Reconciliation: Not Done Med Status: Patient Currently Takes Medications Drug Name: ondansetron 4 mg oral tablet, disintegrating Instructions: 1 tab(s) orally every 6 hours, As Needed SIGNIFICANT EVENTS: No documented data. LIVING SKILLS ADVISOR: Is : yes(1) Is : no(1) REVIEW OF SYSTEMS CONSTITUTIONAL: POSITIVE for: chills and fever GASTROINTESTINAL: POSITIVE for: abdominal pain, nausea and vomiting; All other systems reviewed and are negative PHYSICAL EXAM CONSTITUTIONAL: Appearance: ILL APPEARING Distress: MODERATE Manner: appropriate for situation Mentation: awake and alert Mood: appropriate CARDIOVASCULAR: Normal rate, regular rhythm. Heart sounds S1, S2. No murmurs, rubs or gallops. PMI non-displaced. RESPIRATORY: Breath sounds clear and equal bilaterally. GASTROINTESTINAL: Abdominal Tenderness: (Epigastric) Abdominal Guarding: (Epigastric) GENITOURINARY: CVA Tenderness: no tenderness MEDICAL DECISION MAKING/ED COURSE MDM/ED COURSE: I reevaluated the patient. She states her nausea is getting better but she still she'll not feels nauseous. She also rates her pain in her abdomen a 5 out of 10 on the pain scale. I spoke to house LIVING SKILLS ADVISOR Dr. Macias, who states for heart tones are good and patient can be discharged home from the emergency department. CLINICAL IMPRESSION Diagnosis/Annotation: ED Dx Name:Nausea and vomiting Code:R11.2 Name:Abdominal pain during Code:O26.899 Dispostion: discharged Type: home ATTESTATION Attestation: This is a shared visit. I have reviewed the LIPs encounter note, approve the LIPs documentation and provide the following additional information from my personal encounter. Shared Visit Documentation: See my additional independent Attending Note Comments/Additional Findings: This patient was seen by the advanced practice provider. I agree with the workup, evaluation, management and diagnosis. The care plan has been discussed. CRITICAL CARE TIME Is this a critically ill patient: no Electronic Signatures: Pipo Vallejo (CHRIS) (Signed 18-May-2019 03:46) Authored: Provider Note - ED v2 Salvador Teresa) (Signed 19-May-2019 19:17) Authored: Provider Note - ED v2 Co-Signer: Provider Note - ED v2 Last Updated: 19-May-2019 19:17 by Salvador Teresa) References: 1. Data Referenced From Triage - ED 18-May-2019 01:55 Normal [facility] Risk Screen - Adult Emergenc yon 05-18-2019 Risk Screen - Adult Emergency Preferred Language: Preferred Language: Preferred Language for Discussing Health Care (patient/designee)Chandler contreras Advanced Directives: Advance Directive/DNRno Family Violence Adult: Abuse Screen: Are you or have you been threatened or abused physically, emotionally, or sexually by anyoneno Learning Assessment (Patient): Learning Assessment (Patient): Patient is Able to be Assessed for Learningyes Factors Influencing Readiness to Learnacuteness of illness Factors that Impact Ability to Learnacuteness of illness Devices/Methods Used to Communicatenone Learning Preferencesindividual instruction Cultural Considerationsnone Developmental Considerationsnone Mandaeism Considerationsnone Learning Assessment (Other Learner): Learning Assessment (Other Learner): Other learner availableno Pressure Injury/TB/Substance: Pressure Injury: Do you have a coughno Substance Use Current or Former Historynever: e-Cigarette/Vaping, Alcohol, Street Drugs YES: Cigarette/Tobacco Smoking Statuscurrent every day smoker Tobacco Cessation Education (provide if tobacco use within the last 12 mos) patient declined Admission Risk Screen: Significant IndicatorsComplete CAGE: CAGE: Is this an injured patient at a Trauma Center ([facility]/[place] /[place]): no Electronic Signatures: Diaz Flores (DOMINGA) (Signed 18-May-2019 02:09) Authored: Preferred Language, Advanced Directives, Family Violence Adult, Learning Assessment (Patient), Learning Assessment (Other Learner), Pressure Injury/TB/Substance, CAGE Last Updated: 18-May-2019 02:09 by Diaz Flores (DOMINGA) Normal [facility] Triage - EDon 05-18-2019 Triage - ED Quick Triage: Are You yes Are You Currently Breastfeedingno Chart Review: CHIEF COMPLAINT DEIRDRE OMER is a Female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
== END 2023-04-22 08:38 | disposition home or self-care (01) ==
LOC: NOMS 08:37
PROVIDERS: Visit Provider Obstetrics & Gynecology
DX: Z34.92 Encounter for supervision of normal pregnancy, unspecified, second trimester (principal); Z3A.19 19 weeks gestation of pregnancy; N92.6 Irregular menstruation, unspecified
CPT/HCPCS: 76815

== ENCOUNTER 2024-04-22 11:18 | Observation (INO) | payer OTHER, SELFPAY ==
--- OUTSIDE RECORDS SUMMARY | 2024-04-22 11:25 | XMS_ITS | CCD ---
Author Organization [facility]iniSy[facility] Care Team Providers Care Perennial House Manager Name Role Phone DR FLAKITA MARTINO Admitting Unavailable MISC, DR ORANTES Primary Care Unavailable GUNNER, DR BOGGS Attending Unavailable GUNNER, DR BOGGS Consulting Unavailable MISC, DR ORANTES Primary Care Unavailable CHRISTOPHERASIDaniel, DR BOGGS Attending Unavailable GUNNER, DR BOGGS Consulting Unavailable GUNNER, DR BOGGS Admitting Unavailable Mohini Galeano MD Primary Care Provider MOHINI GALEANO Primary Care Unavailable MANASA ROY Attending Unavailable NO FAMILY, PHYSICIAN Primary Care Provider Unava MD Ephraim Crowe Jr Emergency Provider MD Abdulkadir Maradiaga Admit Provider [phone] MD Abdulkadir Maradiaga Attending Provider [phone] Javi Maradiaga Admitting Unavailab le NO FAMILY, PHYSICIAN Primary Care Unavailable Sebastian Brock Attending Unavailable Javi Maradiaga Admitting Unavailab Javi Melgar Attending Unavailab le NO FAMILY, PHYSICIAN Primary Care Unavailable Milvia Leija MD Primary Care Provider Mohini Galeano Primary Care Physician [phone] DO Lee Ann Roldan Attending Unavaila DO Lee Ann Ward Admitting Unavaila ble DO Lee Ann Roldan Attending Unavaila DO Lee Ann Ward Admitting Unavaila ble DO Lee Ann Roldan Attending Unavaila DO Lee Ann Ward Admitting Unavaila Lee Ann Ward Attending Unavailable Lee Ann Roldan Admitting Unavailable Unallocated MD, Noms Provider Primary Care Provi rosario RIVAS APODACA Admitting Unavaila ble PAULIE, RIVAS Irby Attending Unavaila ble Spencer Montoya Attending Unavailable DO Lee Ann Roldan Admitting Unavaila ble DO Lee Ann Roldan Attending Unavaila ble APODCAA, RIVAS Irby Admitting Unavaila ble APODACA, RIVAS Irby Attending Unavaila ble APODACA, RIVAS Irby Attending Unavaila ble APODACA, RIVAS Irby Admitting Unavaila ble APODACA, RIVAS Irby Attending Unavaila ble APODACA, RIVAS Irby Admitting Unavaila ble PAULIE, SUREKHA F Attending Unavailable SUREKHA APODACA Attending Unavailable LEE ANN ROLDAN Referring Unavailable SUREKHA APODACA F Attending Unavailable PAULIE, SUREKHA F Attending Unavailable Allergies Allergy Classification Reported Allergen(s) Allergy Type Date of Onset Reaction(s) Facility (1 source) Acetaminophen / HYDROcodone Drug Allergy [facility] Repository (20 sources) Codeine; Translations: [codeine] Drug Allergy 2 Nausea And Vomiting, Vomiting (disorder), Dizziness (finding) [facility] [employer] (1 source) Shellfish-Derived Products Propensity to adverse reactions to drug 2 Angioedema [facility] [employer] Work Phone: (1 source) Codeine Drug Allergy 3 [facility] Repository (13 sources) Shellfish Propensity to adverse reactions 4 [facility] (10 sources) Seafood; Translations: [Seafood] Propensity to adverse reactions (disorder) Respiratory distress (finding) [facility] Repository Medications Current Medications Medication Drug Class(es) Dates Sig (Normalized) Sig (Original) Albuterol (Eqv-ProAir HFA) 90 mcg/inh inhalation aerosol (3 sources) Start: 10-23-2023 take 2 puff(s) by inhalation every six hours Albuterol (Eqv-ProAir HFA) 90 mcg/inh inhalation aerosol 2 puff(s), Inhalation, q6hr, 1 EA, Refill(s) 0, [facility], 158, cm, 08/11/24 5:18:00 EDT, Height/Length Dosing, 59.5, kg, 10/23/23 5:18:00 EDT, Weight Dosing Start Date: 10/23/23 Status: Ordered docusate sodium 100 mg oral capsule (5 sources) Start: 09-11-2023 take 1 capsule by mouth twice daily docusate sodium 100 mg Cap 100 mg = 1 cap(s), Oral, BID, # 60 cap(s), Refills(s) 1, Pharmacy: [facility] 1155, 162.5, cm, 09/11/23 3:42:00 EDT, Height/Length Dosing, 73.6, kg, 09/11/23 3:42:00 EDT, Weight Dosing Start Date: 09/11/23 Status: Ordered escitalopram 5 mg oral tablet (1 source) Serotonin Reuptake Inhibitor Start: 10-17-2022 take 5 mg by mouth once daily at bedtime Escitalopram Oxalate Active 5 MG PO Daily at bedtime October 17, 2022 12:00am fluconazole 150 mg oral tablet (1 source) Azole Antifungal Start: 08-14-2021 End: 08-14-2021 take 1 tablet by mouth once fluconazole (DIFLUCAN) 150 MG tablet Take 1 tablet by mouth once for 1 dose 1 tablet 0 08/14/2021 08/14/2021 Active ibuprofen 600 mg oral tablet (5 sources) Nonsteroidal Anti-inflammatory Drug Start: 09-11-2023 take 1 tablet by mouth every six hours as needed ibuprofen 600 mg Tab 600 mg = 1 tab(s), Oral, q6hr, PRN Other (see comment), # 60 tab(s), Refills(s) 1, Pharmacy: [facility] 1155, 162.5, cm, 09/11/23 3:42:00 EDT, Height/Length Dosing, 73.6, kg, 09/11/23 3:42:00 EDT, Weight Dosing Start Date: 09/11/23 Status: Ordered metroNIDAZOLE 500 mg oral tablet (1 source) Nitroimidazole Antimicrobial Start: 08-14-2021 End: 08-24-2021 take 1 tablet by mouth twice daily metroNIDAZOLE (FLAGYL) 500 MG tablet Take 1 tablet by mouth 2 times daily for 10 days 20 tablet 0 08/14/2021 08/24/2021 Active naproxen 500 mg oral tablet (1 source) Nonsteroidal Anti-inflammatory Drug Start: 06-29-2018 take 1 tablet by mouth twice daily Naprosyn 500 mg Tab 500 mg = 1 tab(s), Oral, BID, # 20 tab(s), Refills(s) 0, Pharmacy: [facility] Start Date: 06/29/18 Status: Ordered nicotine 2 mg chewing gum (1 source) Cholinergic Nicotinic Agonist Start: 10-17-2022 Nicotine (Polacrilex) Active 2 MG BUCCAL Every 2 hours 60 October 17, 2022 12:00am Deal (No Known Home Meds) (1 source) Start: 10-14-2022 Deal (No Known Home Meds) Active October 14, 2022 12:00am predniSONE 50 mg oral tablet (1 source) Start: 10-23-2023 End: 10-28-2023 take 1 tablet by mouth once daily predniSONE 50 mg Tab 50 mg = 1 tab(s), Oral, Daily, X 5 day(s), # 5 tab(s), Refills(s) 0, Pharmacy: [facility] 1155, 158, cm, 10/23/23 5:18:00 EDT, Height/Length Dosing, 59.5, kg, 10/23/23 5:18:00 EDT, Weight Dosing Start Date: 10/23/23 Stop Date: 10/28/23 Status: Ordered Multivitamins (5 sources) Start: 09-11-2023 take 1 tablet by mouth once daily Multivitamins 1 tab(s), Oral, Daily, Refill(s) 0 Start Date: 09/11/23 Status: Ordered Vit-Fe Fumarate-FA ( Vitamins) 28-0.8 MG tablet (12 sources) Start: 01-17-2024 take 1 tablet by mouth once daily Vit-Fe Fumarate-FA ( Vitamins) 28-0.8 MG tablet Indications: care, subsequent , first trimester , 8 weeks gestation of Take 1 tablet by mouth Daily 90 tablet 6 01/17/2024 Active Problems Active Problems Problem Classification Problem Date Documented Date Episodic/Chronic Asthma (1 source) Exacerbation of asthma; Translations: [Unspecified asthma with (acute) exacerbation] Onset: 10-23-2023 Chronic Immunizations and screening for infectious disease (3 sources) Encounter for screening for infections with a predominantly sexual mode of transmission; Translations: [Patient encounter status] Onset: 05-02-2020 02-08-2024 Episodic Inflammatory diseases of female pelvic organs (1 source) Bacterial vaginosis; Translations: [Acute vaginitis] Episodic Menstrual disorders (1 source) Missed period; Translations: [Irregular menstruation, unspecified] 04-15-2023 Chronic Mood disorders (10 sources) Recurrent major depressive episodes, moderate ; Translations: [Major depressive disorder, recurrent, moderate] Onset: 10-14-2022 10-14-2022 Chronic Other complications of (2 sources) Supervision of high risk done; Translations: [Supervision of with insufficient care, unspecified trimester] Onset: 09-11-2023 Episodic Other complications of (6 sources) Supervision of with other poor reproductive or obstetric history, unspecified trimester; Translations: [ with other poor obstetric history] 02-08-2024 Episodic Other complications of (2 sources) Fatigue during ; Translations: [ related exhaustion and fatigue, first trimester] 02-08-2024 Episodic Other complications of (4 sources) Finding related to ; Translations: [ related conditions, unspecified, second trimester] 03-21-2024 Episodic Other female genital disorders (4 sources) Other specified noninflammatory disorders of vagina; Translations: [OTH SPEC NONINFLAMMATORY D/O VAGINA] Onset: 01-14-2021 Episodic Other female genital disorders (1 source) Pruritus of vagina; Translations: [Other specified noninflammatory disorders of vagina] Episodic Other and delivery including normal (5 sources) Second trimester ; Translations: [Encounter for supervision of normal , unspecified, second trimester] Onset: 09-12-2023 04-22-2023 Episodic Other screening for suspected conditions (not mental disorders or infectious disease) (5 sources) Patient encounter status; Translations: [Encounter for other specified screening] 04-22-2023 Episodic Residual codes; unclassified (1 source) Gestation period, 39 weeks; Translations: [39 weeks gestation of ] Onset: 09-11-2023 Episodic Residual codes; unclassified (1 source) Gestation period, 8 weeks; Translations: [8 weeks gestation of ] 01-17-2024 Episodic Residual codes; unclassified (2 sources) Gestation period, 13 weeks; Translations: [13 weeks gestation of ] 02-08-2024 Episodic Residual codes; unclassified (2 sources) Gestation period, 19 weeks; Translations: [19 weeks gestation of ] 03-21-2024 Episodic Residual codes; unclassified (2 sources) Gestation period, 22 weeks; Translations: [22 weeks gestation of ] 04-05-2024 Episodic Substance-related disorders (12 sources) History of drug abuse; Translations: [Smoker] 09-10-2023 Chronic Comment on above: Added secondary to d ocumentation in Social History. Suicide and intentional self-inflicted injury (9 sources) Suicidal thoughts; Translations: [Suicidal ideations] Onset: 10-14-2022 10-14-2022 Episodic Past or Other Problems Problem Classification Problem Date Documented Da te Episodic/Chronic Blindness and vision defects (3 sources) Blurring of visual image; Translations: [Other visual disturbances] Onset: 10-14-2022 10-14-2022 Episodic Other complications of (1 source) Supervision of with insufficient care, third trimester; Translations: [O09.33] Onset: 09-11-2023 Episodic Unclassified (6 sources) None (qualifier value) 06-29-2018 Unclassified (11 sources) Onset: 12-23-2018 Resolved: 09-11-2023 09-10-2023 NEGATED: Highlighted row has been ruled out!Unclassified (4 sources) No known active problems 03-21-2024 Results Test Name Value Interpretation Reference Range Facility No Panel Informationon 04-05 Glucose, UA Negative Negative - 1999(110) ++++ mg/dL [facility] Leukocytes, UA Negative Negative - 500+++ Tito/mcL [facility] Nitrite, UA Negative Negative - Positive [facility] Protein, UA Negative Negative - 1999(20) ++++ mg/dL [facility] No Panel Informationon 03-21 Glucose, UA Negative Negative - 2000(110) ++++ mg/dL [facility] Leukocytes, UA Negative Negative - 500+++ Tito/mcL [facility] Nitrite, UA Negative Negative - Positive [facility] Protein, UA Negative Negative - 1999(20) ++++ mg/dL [facility] THINPREP TIS PAP RFX HR HPV DNA AND C. TRACHOMATIS AND N. GONORRHOEAEon 02-14-2024 CHLAMYDIA TRACHOMATIS RNA, TMA, UROGENITAL Not detected Normal NOT DETECTED [facility] Comment on above: Performed By: #### 9 [id number] #### [facility] of [address], [address] [place] [address] Electric Knife Operator: Juan Price MD [facility] [address], [address] [place] [address] Electric Knife Operator: Juan Price MD CLINICAL INFORMATION: Normal [facility] Comment on above: Result Comment: None given Performed By: #### 9 2087 #### [facility] [address], [address] [place] [address] Electric Knife Operator: Juan Price MD [facility] [place] [address] Electric Knife Operator: Juan Price MD COMMENT Normal [facility] Comment on above: Result Comment: EXPL ANATORY NOTE: The Pap is a screening test for cervical cancer. It is not a diagnostic test and is subject to false negative and false positive results. It is most reliable when a satisfactory sample, regularly obtained, is submitted with relevant clinical findings and history, and when the Pap result is evaluated along with historic and current clinical information. Performed By: #### 9 2087 #### [facility] [address], [address] [place] [address] Electric Knife Operator: Juan Price MD [facility] of [place] [address] Electric Knife Operator: Juan Price MD Result Comment: The analytical performance characteristics of this assay, when used to test SurePath(TM) specimens have been determined by [employer]. The modifications have not been cleared or approved by the FDA. This assay has been validated pursuant to the CLIA regulations and is used for clinical purposes. For additional information, please refer to https://education.[employer].[facility]/faq/XLS309 (This link is being provided for information/ educational purposes only.) COMMENT: Normal [facility] Comment on above: Result Comment: This Pap test has been evaluated with computer assisted technology. Performed By: #### 9 2087 #### [facility] [address], [address] [place] [address] Electric Knife Operator: Juan Price MD [facility] [place] [address] Electric Knife Operator: Juan Price MD PIN DRAFTING MACHINE TENDER: Normal [facility] Comment on above: Result Comment: NNO, CT(ASCP) CT screening location: [place] [address]. Performed By: #### 9 2087 #### [facility] [address], [address] [place] [address] Electric Knife Operator: Juan Price MD [facility] [place] [address] Electric Knife Operator: Juan Price MD INTERPRETATION/RESULT: Normal [facility] Comment on above: Result Comment: Cyto logy Results: Negative for intraepithelial lesion or malignancy. Performed By: #### 9 2087 #### [facility] [address], [address] [place] [address] Electric Knife Operator: Juan Price MD [facility] [place] [address] Electric Knife Operator: Juan Price MD LMP: Normal [facility] Comment on above: Result Comment: None given Performed By: #### 9 2087 #### [facility] of [address], [address] [place] [address] Electric Knife Operator: Juan Price MD [facility] of [place] [address] Electric Knife Operator: Juan Price MD NEISSERIA GONORRHOEAE RNA, TMA, UROGENITAL Not detected Normal NOT DETECTED [facility] Comment on above: Performed By: #### 9 2087 #### [facility] [address], [address] [place] [address] Electric Knife Operator: Juan Price MD [facility] of [address], [address] [place] [address] Electric Knife Operator: Juan Price MD PREV. BX: Normal [facility] Comment on above: Result Comment: None given Performed By: #### 9 2087 #### [facility] of [address], [address] [place] [address] Electric Knife Operator: Juan Price MD [facility] of [place] [address] Electric Knife Operator: Juan Price MD PREV. PAP: Normal [facility] Comment on above: Result Comment: None given Performed By: #### 9 2087 #### [facility] of [address], [address] [place] [address] Electric Knife Operator: Juan Price MD [facility] of [place] [address] Electric Knife Operator: Juan Price MD REVIEW PIN DRAFTING MACHINE TENDER: Normal [facility] Comment on above: Result Comment: LLT, CT(ASCP) CT screening location: [place] [address]. Performed By: #### 9 2087 #### [facility] of [address], [address] [place] [address] Electric Knife Operator: Juan Price MD [facility] of [place] [address] Electric Knife Operator: Juan Price MD SOURCE: Normal [facility] Comment on above: Result Comment: None given Performed By: #### 9 2087 #### [facility] of [address], [address] [place] [address] Electric Knife Operator: Juan Price MD [facility] of [place] [address] Electric Knife Operator: Juan Price MD STATEMENT OF ADEQUACY: Normal [facility] Comment on above: Result Comment: Sati sfactory for evaluation. Endocervical/transformation zone component absent. Performed By: #### 9 2087 #### [facility] [address], [address] [place] [address] Electric Knife Operator: Juan Price MD [facility] [address], [address] [place] [address] Electric Knife Operator: Juan Price MD CHEMISTRYOrdered By: SYSTEM SYSTEM on 02-08-2024 Free T4 [Mass/Vol] 0.88 ng/dL Normal 0.58 - 1. 64 ng/dL [facility] TSH Qn 1.35 m[IU]/L Normal 0.34 - 5.60 mcIU/mL [facility] CHEMISTRYOrdered By: Laura Rose on 02-08-2024 HbA1c (Bld) [Mass fraction] 4.7 % Normal <=5.9% [facility] ChemAutoSS [facility] FREE T4on 02-08-2024 [facility] THYROXINE.FREE:MCNC:PT :SER/PLAS:QN: 0.88 ng/dL 0.58 - 1.64 ng/dL [facility] Original Ordering Provider: [facility] [id number] 02-08-2024 Original Ordering Provider: [facility] TSHon 02-08-2024 [facility] THYROTROPIN:ACNC:PT:SE R/PLAS:QN: 1.35 [facility] Original Ordering Provider: [facility] Free T4on 02-08-2024 Free T4 [Mass/Vol] 0.88 ng/dL Normal 0.58-1.64 [facility] Comment on above: Performed By: #### 2 [id number] #### [facility] [address] [place] [address] [id number] 02-08-2024 HbA1c (Bld) [Mass fraction] 4.7 % Normal <=5.9 [facility] Comment on above: Performed By: #### 7 [id number] #### [facility] [address] [place] [address] No Panel Informationon 02-07 Glucose, UA Negative Negative - 2000(110) ++++ mg/dL [facility] Leukocytes, UA Negative Negative - 500+++ Tito/mcL [facility] Nitrite, UA Negative Negative - Positive [facility] Protein, UA Negative Negative - 2000(20) ++++ mg/dL [facility] TSHon 02-08-2024 TSH Qn 1.35 m[IU]/L Normal 0.34-5.60 [facility] Comment on above: Performed By: #### 2 [id number] #### [facility] [address] [place] [address] Urineon 01-28-2024 Bacteria identified Cx Nom (U) Microbiology PROCEDURE: Urine Culture [R1] SOURCE: U CleanCatch BODY SITE: COLLECTED DATE/TIME: 01/26/2024 09:52 EST RECEIVED DATE/TIME: 01/26/2024 11:34 EST START DATE/TIME: 01/26/2024 11:34 EST FREE TEXT SOURCE: [employer] JESUS Stephanie FINAL REPORTS Final Report [] Verified Date/Time: 01/28/2024 07:14 EST 8,000 cfu/ml Mixed skin contaminants Performing Locations R1: This test was performed at: [employer] [facility], [address] [place] [address], [phone] , , [facility] Comment on above: Performed By: #### 2 [id number] #### [facility] [address] [place] [id number] [place] [address] URINEon 01-28-2024 [facility] URINE CULTURE Microbiology PROCEDURE: Urine Culture [R1] SOURCE: U [employer]atch BODY SITE: COLLECTED DATE/TIME: 01/26/2024 09:52 EST RECEIVED DATE/TIME: 01/26/2024 11:34 EST START DATE/TIME: 01/26/2024 11:34 EST FREE TEXT SOURCE: [employer] JESUS Stephanie FINAL REPORTS Final Report [] Verified Date/Time: 01/28/2024 07:14 EST 8,000 cfu/ml Mixed skin contaminants Performing Locations R1: This test was performed at: [employer], [address] [place] [address], [id number] , [place], [facility] Original Ordering Provider: RIVAS LARKIN [facility] Healthcare [facility] HEP BS AGon 01-27-2024 [facility] HEPATITIS B VIRUS SURFACE AG:PRTHR:PT:SER/PLAS:O RD:IA Negative Negative [facility] Comment on above: Performed at: [employer] [address] [id number] [facility] Rekha [facility] HIV SCREEN 4TH GENERATI ON WRFXon 01-27-2024 [facility] HIV 1+2 AB+HIV1 P24 AG:PRTHR:PT:SER/PLAS:O RD:IA Non-Reactive Non Reactive [facility] Comment on above: HIV-1/HIV-2 antibodi es and HIV-1 p24 antigen were NOT detected. There is no laboratory evidence of HIV infection. HIV Negative Performed at: [facility] [id number] [facility] Rekha [facility] RPR WITH CONF RFXon [facility] REAGIN AB:PRTHR:PT:SER:ORD:RP R Non-Reactive Non Reactive [facility] Comment on above: Performed at: [facility] [address] [id number] [facility] Rekha Martinez [facility] RUBELLA IGGon [facility] RUBELLA VIRUS AB.IGG:ACNC:PT:SER/SENDY S:QN:IA 5.54 Immune >0.99 [facility] Comment on above: Non-immune <0.90 Equivocal 0.90 - 0.99 Immune >0.99 Performed at: [facility] [id number] PhD Rekha Martinez HIV Screen 4th Generation wR fxon 01-27-2024 HIV 1+2 Ab+HIV1 p24 Ag IA Ql Non-Reactive Invalid Interpretation Code Non Reactive [facility] Comment on above: Result Comment: HIV- 1/HIV-2 antibodies and HIV-1 p24 antigen were NOT detected. There is no laboratory evidence of HIV infection. HIV Negative Performed at: [address] [id number] PhD Rekha Martinez Performed By: #### 9 [id number] #### [facility] [address] [place] [address] Hep Bs Agon 01-27-2024 HBV surface Ag IA Ql Negative Invalid Interpretation Code Negative [facility] Comment on above: Result Comment: Perf ormed at: [address] [id number] PhD Rekha Martinez Performed By: #### 2 [id number] #### [facility] [address] [place] [address] No Panel Informationon 01-26 Original Ordering Provider: RIVAS APODACA [facility] RPR with Conf Rfxon 01-27-20 24 Reagin Ab RPR Ql (S) Non-Reactive Invalid Interpretation Code Non Reactive [facility] Comment on above: Result Comment: Perf ormed at: [address] [id number] PhD Rekha Martinez Performed By: #### 1 [id number] #### [facility] [address] [place] [address] Rubella IgGon 01-27-2024 Rubella virus IgG Qn (S) 5.54 [IU]/mL Invalid Interpretation Code Immune >0.99 [facility] Comment on above: Result Comment: Non- immune <0.90 Equivocal 0.90 - 0.99 Immune >0.99 Performed at: [address] [id number] PhD Rekha Martinez Performed By: #### 1 [id number] #### [facility] [address] [place] [address] ABO/Rhon 01-26-2024 ABO/Rh Positive Invalid Interpretation Code [facility] Comment on above: Performed By: #### 2 [id number] #### [facility] [address] [place] [address] ABSCon 01-26-2024 ABSC Gel Interp Negative Normal [facility] Comment on above: Performed By: #### 1 [id number] #### [facility] [address] [place] [address] BLOOD BANKOrdered By: William Marte on 01-26-2024 ABO/Rh Interp Positive Invalid Interpretation Code [facility] BB Subsection ABSC Gel Interp Negative (01/26/24 8:51 AM) Normal [facility] BB Subsection CBC w/ Auto Diffon 4 Basophils/100 WBC (Bld) 0.3 % 0.0 - 2.0 % [facility] Comment on above: Performed By: #### 2 [id number] #### [facility] [address] [place] [address] Basophils/Leukocytes Auto (Bld) [Pure # fraction] 0.0 E9/L Normal 0.0-0.2 [facility] Comment on above: Performed By: #### 2 [id number] #### [facility] [address] [place] [address] Eosinophils (Bld) [#/Vol] 0.3 E9/L Normal 0.0-0.5 [facility] [facility] Comment on above: Performed By: #### 2 [id number] #### [facility] [address] [place] [address] Eosinophils/100 WBC (Bld) 3.4 % Normal 0.0-8.0 [facility] Comment on above: Performed By: #### 2 [id number] #### [facility] [address] [place] [address]39 Erythrocyte distribution width (RBC) [Ratio] 12.1 % 10.9 - 14.2 % [facility] Comment on above: Performed By: #### 2 [id number] #### [facility] [address] [place] [address] Hematocrit (Bld) [Volume fraction] 38.7 % 34.0 - 46.0 % [facility] Comment on above: Performed By: #### 2 [id number] #### [facility] [address] [place] [address] 23454 Hemoglobin (Bld) [Mass/Vol] 13.4 g/dL Normal 12.0-16.0 [facility] Comment on above: Performed By: #### 2 [id number] #### [facility] [address] [place] [address] Lymphocytes (Bld) [#/Vol] 1.3 E9/L Normal 1.0-4.0 [facility] Comment on above: Performed By: #### 2 [id number] #### [facility] [address] [place] [address] Lymphocytes/100 WBC (Bld) 17.9 % 14.0 - 50.0 % [facility] Comment on above: Performed By: #### 2 [id number] #### [facility] [address] [place] [address] MCH (RBC) [Entitic mass] 32.1 pg Normal 27.0-34.0 [facility] Comment on above: Performed By: #### 2 [id number] #### [facility] [address] [place] [address] MCHC (RBC) [Mass/Vol] 34.7 g/dL Normal 31.4-36.[address] [facility] Comment on above: Performed By: #### 2 [id number] #### [facility] [address] [place] [address] MCV (RBC) [Entitic vol] 92.5 fL Normal 80.0-100.0 [facility] Comment on above: Performed By: #### 2 [id number] #### [facility] [address] [place] [address] Monocytes (Bld) [#/Vol] 0.6 E9/L Normal 0.2-1.0 [facility] Comment on above: Performed By: #### 2 [id number] #### [facility] [address] [place] [address] Neutrophils (Bld) [#/Vol] 5.2 E9/L Normal 2.0-7.5 [facility] Comment on above: Performed By: #### 2 198743 #### [facility] [address] [place] [address] Neutrophils/100 WBC (Bld) 70.5 % 36.0 - 75.0 % [facility] Comment on above: Performed By: #### 2 [id number] #### [facility] [address] [place] [address] Platelet 247.0 E9/L Normal 150.0-500.0 [facility] Comment on above: Performed By: #### 2 [id number] #### [facility] [address] [place] [address] Platelet mean volume (Bld) [Entitic vol] 8.8 fL 6.4 - 10.8 fL [facility] Comment on above: Performed By: #### 2 [id number] #### [facility] [address] [place] [address] RBC (Bld) [#/Vol] 4.2 E12/L Low 4.3-5.9 [facility] Comment on above: Performed By: #### 2 [id number] #### [facility] [address] [place] [address] WBC corrected for nucl RBC Auto (Bld) [#/Vol] 7.4 E9/L Normal 4.0-11.0 [facility] Comment on above: Performed By: #### 2 [id number] #### [facility] [address] [place] [address] CHEMISTRYOrdered By: SYSTEM SYSTEM on 01-26-2024 Amphetamines Screen method >1000 ng/mL Ql (U) NEGATIVE 7 (01/26/24 9:52 AM) Normal NEGATIVE [facility] Comment on above: Interpretive Data: N egative Cutoff: <1000 ng/mL Barbiturates Screen Ql (U) NEGATIVE 8 (01/26/24 9:52 AM) Normal NEGATIVE [facility] Comment on above: Interpretive Data: N egative Cutoff: <200 ng/mL Benzodiazepines Ql (U) NEGATIVE 1 (01/26/24 9:52 AM) Normal NEGATIVE [facility] Comment on above: Interpretive Data: N egative Cutoff: <200 ng/mL Cannabinoids Screen Ql (U) POSITIVE 5, 6 *ABN* (01/26/24 9:52 AM) Invalid Interpretation Code NEGATIVE [facility] Comment on above: Result Comment: Resu lt verified by repeat analysis, Unconfirmed by alternate method No Confirmation Requested by Physician. Interpretive Data: N egative Cutoff: <50 ng/mL Cocaine Ql (U) NEGATIVE 2 (01/26/24 9:52 AM) Normal NEGATIVE [facility] Comment on above: Interpretive Data: N egative Cutoff: <300 ng/mL Opiates Screen Ql (U) NEGATIVE 3 (01/26/24 9:52 AM) Normal NEGATIVE [facility] Comment on above: Interpretive Data: N egative Cutoff: <300 ng/mL Phencyclidine Screen method >25 ng/mL Ql (U) NEGATIVE 4 (01/26/24 9:52 AM) Normal NEGATIVE [facility] Comment on above: Interpretive Data: N egative Cutoff: <25 ng/mL These drug screen results are to be used for medical (i.e., treatment) purposes only. Unconfirmed drug screening results must not be used for non-medical purposes (e.g., employment testing, legal testing). U Fentanyl NEGATIVE 9 (01/26/24 9:52 AM) Normal NEGATIVE [facility] Comment on above: Interpretive Data: N egative Cutoff: <5 ng/mL These drug screen results are to be used for medical (i.e., treatment) purposes only. Unconfirmed drug screening results must not be used for non-medical purposes (e.g., employment testing, legal testing). [facility] ABO/RHon 01-26-2024 [facility] ABO/RH Positive [facility] ABSCon 01-26-2024 [facility] ABSC GEL INTERP Negative [facility] CBC W/ AUTO DIFFon 01-12 EOSINOPHILS/100 LEUKOCYTES:NFR:PT:BLD: QN:AUTOMATED COUNT 3.4 % 0.0 - 8.0 % [facility] EOSINOPHILS:NCNC:PT:BL D:QN: 0.3 [facility] BASOPHILS/LEUKOCYTES:N FR.DF:PT:BLD:QN:AUTOMA BRIANNA COUNT 0 [facility] ERYTHROCYTE MEAN CORPUSCULAR HEMOGLOBIN CONCENTRATION:MCNC:PT: RBC:QN 34.7 [facility] ERYTHROCYTE MEAN CORPUSCULAR HEMOGLOBIN:ENTMASS:PT: RBC:QN 32.1 pg 27.0 - 34.0 pg [facility] ERYTHROCYTE MEAN CORPUSCULAR VOLUME:ENTVOL:PT:RBC:Q N:AUTOMATED COUNT 92.5 fL 80.0 - 100.0 fL [facility] ERYTHROCYTES:NCNC:PT:B LD:QN:AUTOMATED COUNT 4.2 Low [facility] HEMOGLOBIN:MCNC:PT:BLD :QN: 13.4 [facility] LEUKOCYTES 7.4 [facility] MONOCYTES:NCNC:PT:BLD: QN:AUTOMATED COUNT 0.6 [facility] NEUTROPHILS:NCNC:PT:BL D:QN:AUTOMATED COUNT 5.2 [facility] Interpretation and review of laboratory results Abnormal [facility] LYMPHOCYTES:NCNC:PT:BL D:QN: 1.3 [facility] Platelets (Bld) [#/Vol] 247 10*3/uL [facility] Original Ordering Provider: RIVAS LARKIN [facility] U DRUG SCREENon 024 [facility] AMPHETAMINES:PRTHR:PT: URINE:ORD:SCREEN>1000 NG/ML Negative NEGATIVE [facility] Comment on above: Negative Cutoff: <10 00 ng/mL [facility] BARBITURATES:PRTHR:PT: URINE:ORD:SCREEN Negative NEGATIVE [facility] Comment on above: Negative Cutoff: <20 0 ng/mL [facility] BENZODIAZEPINES:PRTHR: PT:URINE:ORD:SCREEN Negative NEGATIVE [facility] Comment on above: Negative Cutoff: <20 0 ng/mL [facility] CANNABINOIDS:PRTHR:PT: URINE:ORD:SCREEN Positive Abnormal NEGATIVE [facility] Comment on above: Result verified by r epeat analysis, Unconfirmed by alternate method No Confirmation Requested by Physician. Negative Cutoff: <50 ng/mL [facility] COCAINE:PRTHR:PT:URINE :ORD: Negative NEGATIVE [facility] Comment on above: Negative Cutoff: <30 0 ng/mL [facility] OPIATES:PRTHR:PT:URINE :ORD:SCREEN Negative NEGATIVE [facility] Comment on above: Negative Cutoff: <30 0 ng/mL [facility] PHENCYCLIDINE:PRTHR:PT :URINE:ORD:SCREEN>25 NG/ML Negative NEGATIVE [facility] Comment on above: Negative Cutoff: <25 ng/mL These drug screen results are to be used for medical (i.e., treatment) purposes only. Unconfirmed drug screening results must not be used for non-medical purposes (e.g., employment testing, legal testing). Interpretation and review of laboratory results Abnormal [facility] Original Ordering Provider: RIVAS OROZCOISYPATSY [facility] HEMATOLOGYOrdered By: SYSTEM SYSTEM on 01-26-2024 Basophils/100 WBC (Bld) 0.3 % Normal 0.0 - 2.0 % [facility] Basophils/Leukocytes Auto (Bld) [Pure # fraction] 0.0 E9/L Normal 0.0 - 0.2 E9/L [facility] Eosinophils (Bld) [#/Vol] 0.3 E9/L Normal 0.0 - 0.5 E9/L [facility] Eosinophils/100 WBC (Bld) 3.4 % Normal 0.0 - 8.0 % [facility] Erythrocyte distribution width (RBC) [Ratio] 12.1 % Normal 10.9 - 14.2 % [facility] Hematocrit (Bld) [Volume fraction] 38.7 % Normal 34.0 - 46.0 % [facility] Hemoglobin (Bld) [Mass/Vol] 13.4 g/dL Normal 12.0 - 16.0 gm/dL [facility] Lymphocytes (Bld) [#/Vol] 1.3 E9/L Normal 1.0 - 4.0 E9/L [facility] Lymphocytes/100 WBC (Bld) 17.9 % Normal 14.0 - 50.0 % [facility] MCH (RBC) [Entitic mass] 32.1 pg Normal 27.0 - 34.0 pg [facility] MCHC (RBC) [Mass/Vol] 34.7 g/dL Normal 31.4 - 36.0 gm/dL [facility] MCV (RBC) [Entitic vol] 92.5 fL Normal 80.0 - 100.0 fL [facility] Monocytes (Bld) [#/Vol] 0.6 E9/L Normal 0.2 - 1.0 E9/L [facility] Monocytes/100 WBC (Bld) 7.9 % Normal 4.0 - 14.0 % [facility] Neutrophils (Bld) [#/Vol] 5.2 E9/L Normal 2.0 - 7.5 E9/L [facility] Neutrophils/100 WBC (Bld) 70.5 % Normal 36.0 - 75.0 % [facility] Platelet 247.0 E9/L Normal 150.0 - 500.0 E9/L [facility] Platelet mean volume (Bld) [Entitic vol] 8.8 fL Normal 6.4 - 10.8 fL [facility] RBC (Bld) [#/Vol] 4.2 E12/L Low 4.3 - 5.9 E12/L [facility] WBC corrected for nucl RBC Auto (Bld) [#/Vol] 7.4 E9/L Normal 4.0 - 11.0 E9/L [facility] No Panel Informationon 01-25 [facility] [address], [place] [id number] [place] [address] Drug Screenon 01-26-2024 Amphetamines Screen method >1000 ng/mL Ql (U) Negative Normal NEGATIVE [facility] Comment on above: Result Comment: Nega tive Cutoff: <1000 ng/mL Performed By: #### 2 [id number] #### [facility] [address] [place] [address] Barbiturates Screen Ql (U) Negative Normal NEGATIVE [facility] Comment on above: Result Comment: Nega tive Cutoff: <200 ng/mL Performed By: #### 2 [id number] #### [facility] [address] [place] [address] Benzodiazepines Ql (U) Negative Normal NEGATIVE Fi [facility] Comment on above: Result Comment: Nega tive Cutoff: <200 ng/mL Performed By: #### 2 [id number] #### [facility] [address] [place] [address] Cannabinoids Screen Ql (U) Positive Abnormal NEGATIVE [facility] Comment on above: Result Comment: Resu lt verified by repeat analysis, Unconfirmed by alternate method No Confirmation Requested by Physician. Negative Cutoff: <50 ng/mL Performed By: #### 2 [id number] #### [facility] [address] [place] [address] Cocaine Ql (U) Negative Normal NEGATIVE [facility] Comment on above: Result Comment: Nega tive Cutoff: <300 ng/mL Performed By: #### 2 [id number] #### [facility] [address] [place] [address] Opiates Screen Ql (U) Negative Normal NEGATIVE [facility] Comment on above: Result Comment: Nega tive Cutoff: <300 ng/mL Performed By: #### 2 [id number] #### [facility] [address] [place] [address] Phencyclidine Screen method >25 ng/mL Ql (U) Negative Normal NEGATIVE [facility] Comment on above: Result Comment: Nega tive Cutoff: <25 ng/mL These drug screen results are to be used for medical (i.e., treatment) purposes only. Unconfirmed drug screening results must not be used for non-medical purposes (e.g., employment testing, legal testing). Performed By: #### 2 [id number] #### [facility] [address] [place] [address] U Fentanyl Negative NEGATIVE [facility] Comment on above: Result Comment: Nega tive Cutoff: <5 ng/mL These drug screen results are to be used for medical (i.e., treatment) purposes only. Unconfirmed drug screening results must not be used for non-medical purposes (e.g., employment testing, legal testing). Performed By: #### 2 [id number] #### [facility] [address] [place] [address] Negative Cutoff: <5 ng/mL These drug screen results are to be used for medical (i.e., treatment) purposes only. Unconfirmed drug screening results must not be used for non-medical purposes (e.g., employment testing, legal testing). ED Clinical Summaryon 2023 ED Clinical Summary ED Clinical Summary [address] [address] ED Clinical Summary Person Information [facility]: [facility] Age[facility] 23 Years : 2000 Sex: Female Language: Yemeni PCP: Mohini Galeano MD Marital Status: Single Phone: [phone] Visit Id: Visit Reason: Cough; Wheezing; Respiratory problem; ASTHMA , TROUBLE BREATHING Speciality: Acuity: 3 Enc Type: Emergency Med Service: Emergency Arrival: 10/23/2023 05:10:40 Discharge: 10/23/2023 06:24:42 LOS: 000 01:14 Checkin: 10/23/2023 05:10:40 Checkout: 10/23/2023 06:24:42 Dispo Type: Home (Routine DC) EVENTS: Event Name Event Status Request Date/Time Start Date/Time Complete Date/Time Arrive Complete 10/23/2023 05:10:40 10/23/2023 05:10:40 10/23/2023 05:10:40 Document Home Meds Request 10/23/2023 05:10:40 Triage Complete 10/23/2023 05:10:40 10/23/2023 05:18:12 10/23/2023 05:18:12 Dr Exam Complete 10/23/2023 05:12:06 10/23/2023 05:12:06 10/23/2023 05:12:06 Registration Start 10/23/2023 05:12:06 10/23/2023 05:16:01 Bed Assign Complete 10/23/2023 05:16:01 10/23/2023 05:16:01 10/23/2023 05:16:01 RN Exam Complete 10/23/2023 05:16:01 10/23/2023 05:26:02 10/23/2023 05:26:02 Meds Admin Complete 10/23/2023 05:18:11 10/23/2023 06:22:30 X-Ray Complete 10/23/2023 05:18:11 10/23/2023 05:55:15 10/23/2023 06:11:28 RT Tx/ABG Complete 10/23/2023 05:18:12 10/23/2023 05:43:01 10/23/2023 05:43:01 RT Tx/ABG Complete 10/23/2023 05:18:12 10/23/2023 05:43:09 10/23/2023 05:43:09 Meds Admin Request 10/23/2023 05:21:03 RT Tx/ABG Complete 10/23/2023 05:21:03 10/23/2023 05:43:04 10/23/2023 05:43:04 RT Tx/ABG Complete 10/23/2023 05:21:03 10/23/2023 05:59:46 10/23/2023 05:59:46 Wet Read Request 10/23/2023 06:11:28 Discharge Complete 10/23/2023 06:16:08 10/23/2023 06:25:10 10/23/2023 06:25:10 Transfer Complete 10/23/2023 06:25:10 10/23/2023 06:25:10 10/23/2023 06:25:10 ADDRESS: [address] [place] [address] NOTES: MEDICAL INFORMATION: Prescriptions Given: [facility], [address], [place] [id number], [phone] albuterol (Albuterol (Eqv-ProAir HFA) 90 mcg/inh inhalation aerosol) 2 Puffs Inhalation every 6 hours. Refills: 0. predniSONE (predniSONE 50 mg Tab) 1 Tablets By Mouth every day for 5 Days. Refills: 0. Medications to Continue with No Changes Other Medications docusate (docusate sodium 100 mg Cap) 1 Capsules By Mouth 2 times a day. Refills: 1. ibuprofen (ibuprofen 600 mg Tab) 1 Tablets By Mouth every 6 hours as needed Other (see comment). Refills: 1. multivitamin, ( Multivitamins) 1 Tablets By Mouth every day. PATIENT EDUCATION INFORMATION: Instructions: Asthma, Adult, Bmod-[id number]; Asthma Attack Follow up: With: Address: When: Mohini Galeano [address] [facility] [place] [address] Business (1) In 3 days 10/26/2023 Comments: Use inhaler 2 puffs every 4 hours were for the next 2 to 3 days and decreased as needed. Take the steroids once daily and to complete the course. Please follow-up with your primary care doctor next 2 to 3 days. Please return to the ED for any new or worsening symptoms. DIAGNOSIS: Acute asthma exacerbation Normal [facility] ED Note-Physicianon 10-23-19 ED Note-Physician ED Note-Physician Basic Information Time Seen: Spencer Montoya DO 10/23/2023 05:12 History of Present Illness Patient is a 23-year-old female with past medical history of asthma presenting to the ED for evaluation of shortness of breath. Patient states she has been having increasing allergies lately has been taking allergy medication in addition to using her albuterol inhaler. She states her albuterol inhaler ran out last night and has had increasing shortness of breath. Denies any fevers, chills, nausea or vomiting. Review of Systems A 10 point review of systems is negative except as noted above. Medical and Surgical History: Reviewed and noted Social history: Lives at home Tobacco: Denies Physical Exam Vitals & Measurements T: 36.5 ?C(Oral) HR: 88(Peripheral) RR: 16 BP: 121/77 SpO2: 98% HT: 158 cm WT: 59.5 kg BMI: 23.83 General: Well developed, non toxic appearing, no acute distress HEENT: Head atraumatic, Mucosa moist, hearing grossly normal Neck: No JVD, tracheal deviation Cardiac: Regular rate, rhythm, no murmurs, or gallops, 2+ radial pulses Respiratory: Diffuse inspiratory and expiratory wheezing noted on auscultation bilaterally, normal respiratory effort Abdomen: Soft non tender, no rebound or guarding, no peritoneal signs Extremities: No edema noted in the LE B/L, no tenderness to palpation Neurologic: Alert and oriented, speech clear Skin: No rashes or lesions Psych: Appropriate mood and behavior Medical Decision Making MEDICAL DECISION MAKING Number and Complexity of Problems Differential Diagnosis: [] [facility] Data External documents reviewed: [] My EKG interpretation: [] My CT interpretation: [] My X-ray interpretation: [] My Ultrasound interpretation: [] Decision rules/scores evaluated: [] Discussed with: [] Treatment and Disposition ED Course: Patient is a 23-year-old female presenting to the ED for evaluation of shortness of breath. Patient nontoxic and on arrival, no acute distress. Does have diffuse wheezing noted on auscultation bilaterally. DuoNebs are given patient is given prednisone in the ED. Chest x-ray is obtained to evaluate for focal infiltrate. Patient's chest x-ray shows hyperinflation but no focal infiltrates. On reevaluation patient is feeling significantly improved. Did offer to observe the patient in the ED however patient is comfortable going home. She is given an albuterol inhaler to go home with is also given prescription for albuterol inhaler, prednisone. She is to follow-up with her primary care doctor next 2 to 3 days. She is to return to the ED for any new or worsening symptoms. Shared decision making: [] Code status: [] Assessment/Plan Acute asthma exacerbation (J45.901: Unspecified asthma with (acute) exacerbation) Orders: albuterol, 180 mcg, 2 puff(s), Aerosol, Inhalation, q6hr PRN Shortness of breath or wheezing, STAT, Start date 10/23/23 5:20:00 EDT, teach and treat only albuterol, 2 puff(s), Inhalation, q6hr, 1 EA, Refill(s) 0, [facility], 158, cm, 10/23/23 5:18:00 EDT, Height/Length Dosing, 59.5, kg, 10/23/23 5:18:00 EDT, Weight Dosing albuterol-ipratropium, 9 mL, Soln-Inh, Inhalation, Once, Stop date 10/23/23 5:17:00 EDT, STAT, Start date 10/23/23 5:17:00 EDT predniSONE, 50 mg = 1 tab(s), Oral, Daily, X 5 day(s), # 5 tab(s), Refills(s) 0, Pharmacy: [facility], 158, cm, 10/23/23 5:18:00 EDT, Height/Length Dosing, 59.5, kg, 10/23/23 5:18:00 EDT, Weight Dosing predniSONE, 60 mg = 3 tab(s), Tab, Oral, Once, Stop date 10/23/23 5:17:00 EDT, STAT, Start date 10/23/23 5:17:00 EDT, 10/23/23 5:17:00 EDT XR Chest 2 Views Medications Administered Given albuterol HFA 90 mcg/inh MDI, 90 mcg, Inhalation DuoNeb 2.5 mg-0.5 mg/3 mL Soln-Inh, 9 mL, Inhalation Disposition Plan Discharge Prescription List Prescriptions Albuterol (Eqv-ProAir HFA) 90 mcg/inh inhalation aerosol, 2 puff(s), Inhalation, q6hr predniSONE 50 mg Tab, 50 mg= 1 tab(s), Oral, Daily Follow-up With When Contact Information Mohini Galeano In 3 days 10/26/2023 EDT [address] [place] [address]- Business (1) Additional Instructions: Use inhaler 2 puffs every 4 hours were for the next 2 to 3 days and decreased as needed. Take the steroids once daily and to complete the course. Please follow-up with your primary care doctor next 2 to 3 days. Please return to the ED for any new or worsening symptoms. Patient Education Asthma, Adult, Eqhu-zm-Hqlw Asthma Attack Problem List/Past Medical History Ongoing Smoker Historical None Procedure/Surgical History None. Medications Inpatient albuterol HFA 90 mcg/inh MDI, 180 mcg= 2 puff(s), Inhalation, q6hr, PRN DuoNeb 2.5 mg-0.5 mg/3 mL Soln-Inh, 9 mL, Inhalation, Once predniSONE 20 mg Tab, 60 mg= 3 tab(s), Oral, Once Home docusate sodium 100 mg Cap, 100 mg= 1 cap(s), Oral, BID, 1 refills ibuprofen 600 mg Tab, 6 (more content not included)... Normal [facility] Comment on above: Result Comment: Elec tronically Signed By: Spencer Montoya DO\.noemi\Date and Time Signed: 10/23/23 06:17 EDT ED Patient Summaryon 024 ED Patient Summary ED Patient Summary [address] [address] Patient Discharge Instructions Person Information Name: DEIRDRE IYER Age: 23 Years Arrival Date: 10/23/2023 05:10:40 Discharge Diagnosis: Acute asthma exacerbation Primary Care Physician: Mohini Galeano MD Provider Information Primary Provider: Spencer Montoya DO [employer] Engine Mechanic:None The exam and treatment you received in the Emergency Department were for an urgent problem and are not intended as complete care. It is important that you follow up with a doctor, nurse practitioner, or physician?s public health training assistant for ongoing care. If your symptoms become worse or you do not improve as expected and you are unable to reach your usual health care provider, you should return to the Emergency Department. We are available 24 hours a day. DEIRDRE IYER has been given the following list of patient education materials, prescriptions and follow-up instructions: Follow-up Instructions: With: Address: When: Mohini Galeano [address] [place] [address], [facility] [place] [phone] Business (1) In 3 days 10/26/2023 Comments: Use inhaler 2 puffs every 4 hours were for the next 2 to 3 days and decreased as needed. Take the steroids once daily and to complete the course. Please follow-up with your primary care doctor next 2 to 3 days. Please return to the ED for any new or worsening symptoms. In the event that this physician does not participate in your insurance network, please consult with your insurance company to find a nearby participating provider. Patient Education Materials: Asthma, Adult, Fzuu-wo-Lhrn; Asthma Attack A MESSAGE TO ALL PATIENTS REGARDING OPIOIDS PRESCRIPTION OPIOIDS: WHAT YOU NEED TO KNOW Prescription opioids can be used to help relieve ziykcudz-qv-wmpell pain and are often prescribed following a [...] following guidance from the Food and Drug Admin (more content not included)... Normal [facility] XR Chest 2 Viewson 4 XR Chest 2 Views Exam Date/Time: 10/23/2023 06:11 EDT Reason for Exam: Difficulty breathing Report IMPRESSION: NO EVIDENCE OF ACTIVE CARDIOPULMONARY DISEASE. EXAM: XR Chest 2 Views DATE: 10/23/2023 5:55 AM CLINICAL HISTORY: Difficulty breathing. COMPARISON: 01/25/2018. TECHNIQUE: Upright PA and lateral radiographs of the chest were obtained. FINDINGS: There is no significant pulmonary infiltrate, cardiomegaly, pleural effusion, vascular congestion, pneumothorax, or displaced fractures identified. Mild to moderate S-shaped scoliosis is again noted. Ordering Provider: Spencer Montoya FINAL REPORT Dictated: 10/23/2023 10:12 am Martinez Vasquez MD Signed (Electronic Signature): 10/23/2023 10:12 am Signed by: Martinez Vasquez MD Transcribed by: LAYLA Technologist: OSMIN Technical Comments Radiation Dose: Ka,r in mGy = na DAP = na Normal [facility] Chlam/GC/Trich,NAAon 024 C. trachomatis rRNA NADEEM+probe Ql (Unsp spec) Negative Invalid Interpretation Code Negative [facility] Comment on above: Performed By: #### 1 [id number] #### [facility] [address] [id number] N. gonorrhoeae rRNA NADEEM+probe Ql (Unsp spec) Negative Invalid Interpretation Code Negative [facility] Comment on above: Performed By: #### 1 [id number] #### [facility] [address] [place] [address] T. vaginalis rRNA NADEEM+probe Ql (Unsp spec) Negative Invalid Interpretation Code Negative [facility] Comment on above: Result Comment: Perf ormed at: =G [facility] [address] [id number] MD Lisa Iraheta Performed By: #### 1 [id number] #### [facility] [address] [place] [address] Delivery Summaryon 4 Delivery Summary Delivery Summary Delivery Normal Spontaneous Vaginal Delivery Disposition To room in stable condition History/Labor Course Patient is a 23-year-old -0-0-1 at 39 weeks and 1 day presented to labor and delivery with worsening contraction. Patient was seen in triage several hours prior and was discharged home and returned with worsening and more regular contraction. Patient was noted to be 4 to 5 cm dilated with regular contraction every 2 to 3 minutes and patient was admitted to the unit. Current has been complicated with insufficient care with only 1 visit at 19 weeks and 4 days where dating ultrasound was performed. Patient never completed OB labs and all OB labs was drawn last night. Patient denies any leaking of fluid or vaginal bleeding. Reports good movement. Epidural anesthesia initiated for pain management. Patient was expectantly managed and reached complete cervical dilation. Artificial amniotomy was performed with clear amniotic fluid. Patient was coached to push and delivered a viable female infant in OA position on 09/11/2023 at 0818. The mouth and nose was suctioned with bulb suction and was placed on the maternal's chest. Infant weighed 5# 15oz, 2687g with Apgars of 8/9. Superficial left labial laceration noted which requires no repair and it was hemostatic. Three vessels umbilical cord was noted. The umbilical cord was doubly clamped and cut without difficulty. Intact placenta was delivered spontaneously. EBL 200mL. Delivery Documentation Additional Delivery Information Presenting PartVertex(Recorded: 09/11/2023 07:00 EDT) Presenting [facility](Recorded: 09/11/2023 06:01 EDT) Presenting [facility](Recorded: 09/11/2023 04:59 EDT) Presenting [facility](Recorded: 09/11/2023 03:03 EDT) Anesthesia Type OBEpidural Labor Information Baby A Labor Onset Methods:Spontaneous Complete Cervical Dilation Date/Time09/11/2023 07:05 EDT OB History History (0,0,0,1) # 1 Baby 1 Outcome Date: 09/15/2019 Outcome or Result: Vaginal Gest Age: 38 weeks Outcome: Live Sex: Female Complications: Downs syndrome; Respiratory distress needing oxygen Hospital: [facility] Comment: precip delivery Membrane Status Information Baby A ROM Date, Time:09/11/2023 08:09 EDT Membrane Status:Ruptured Amniotic Fluid Color/Description:Clear Medications Given D5LR 1000 mL Soln-IV 1,000 mL, 1000 mL, IV Epidural Bag Ropivacaine Fentanyl 200 mL, 200 mL, Epidural Lactated Ringers IV Tamanna 1000 mL 1,000 mL, 1000 mL, IV Betadine Topical Solution 10%, 1 karl, Topical epinephrine-lidocaine 1:200,000-1.5% preservative-free injectable solution, 150 mg, Epidural fentaNYL 50 mcg/mL Inj 2 mL, 100 mcg, Epidural ropivacaine 0.2% injectable solution 10 mL, 18 mg, Epidural Correction, document was created 09/11/2023 Please see correction above Normal [facility] Comment on above: Result Comment: Elec tronically Signed By: Lee Ann Roldan DO\Date and Time Signed: 09/14/23 12:46 EDT .Interpretation:on 4 HCV Ab IA Ql Comment Invalid Interpretation Code [facility] Comment on above: Result Comment: Not infected with HCV unless early or acute infection is suspected (which may be delayed in an immunocompromised individual), or other evidence exists to indicate HCV infection. Performed at: [facility] [id number] PhD Rekha Martinez Performed By: #### 2 [id number] #### [facility] [address] [place] [address] Delivery Summaryon 4 Delivery Summary Delivery Summary Delivery Normal Spontaneous Vaginal Delivery Disposition To room in stable condition History/Labor Course Patient is a 23-year-old -0-0-1 at 39 weeks and 1 day presented to labor and delivery with worsening contraction. Patient was seen in triage several hours prior and was discharged home and returned with worsening and more regular contraction. Patient was noted to be 4 to 5 cm dilated with regular contraction every 2 to 3 minutes and patient was admitted to the unit. Current has been complicated with insufficient care with only 1 visit at 19 weeks and 4 days where dating ultrasound was performed. Patient never completed OB labs and all OB labs was drawn last night. Patient denies any leaking of fluid or vaginal bleeding. Reports good movement. Epidural anesthesia initiated for pain management. Patient was expectantly managed and reached complete cervical dilation. Artificial amniotomy was performed with clear amniotic fluid. Patient was coached to push and delivered a viable female infant in OA position on 09/11/2023 at 0818. The mouth and nose was suctioned with bulb suction and infant was placed on the maternal's chest. Infant weighed 5# 15oz, 2687g with Apgars of 8/9. Superficial left labial laceration noted which requires no repair and it was hemostatic. Three vessels umbilical cord was noted. The umbilical cord was doubly clamped and cut without difficulty. Intact placenta was delivered spontaneously. EBL 200mL. Patient recovering and stable condition in without any complication. This morning patient reports lochia is decreasing. Patient admits to cramping during breast-feeding which is controlled with pain medication. Tolerating regular diet and ambulation without difficulty. Voiding spontaneously without difficulty. Denies any chest pain, shortness of breath, nausea, vomiting, fevers or chills Delivery Documentation Additional Delivery Information Presenting PartVertex(Recorded: 09/11/2023 07:00 EDT) Presenting PartVertex(Recorded: 09/11/2023 06:01 EDT) Presenting PartVertex(Recorded: 09/11/2023 04:59 EDT) Presenting PartVertex(Recorded: 09/11/2023 03:03 EDT) Anesthesia Type OBEpidural Labor Information Baby A Labor Onset Methods:Spontaneous Complete Cervical Dilation Date/Time09/11/2023 07:05 EDT OB History History (0,0,0,1) # 1 Baby 1 Outcome Date: 09/15/2019 Outcome or Result: Vaginal Gest Age: 38 weeks Outcome: Live Sex: Female Complications: Downs syndrome; Respiratory distress needing oxygen Hospital: [facility] Comment: precip delivery Membrane Status Information Baby A ROM Date, Time:09/11/2023 08:09 EDT Membrane Status:Ruptured Amniotic Fluid Color/Description:Clear Medications Given D5LR 1000 mL Soln-IV 1,000 mL, 1000 mL, IV Epidural Bag Ropivacaine Fentanyl 200 mL, 200 mL, Epidural Lactated Ringers IV Tamanna 1000 mL 1,000 mL, 1000 mL, IV Betadine Topical Solution 10%, 1 karl, Topical epinephrine-lidocaine 1:200,000-1.5% preservative-free injectable solution, 150 mg, Epidural fentaNYL 50 mcg/mL Inj 2 mL, 100 mcg, Epidural ropivacaine 0.2% injectable solution 10 mL, 18 mg, Epidural Correction, document was created 09/11/2023 [facility] Comment on above: Result Comment: Elec tronically Signed By: Lee Ann Roldan DO.br\Date and Time Signed: 09/13/23 13:02 EDT General Message Officeon General Message Office General Message O ffice --- --- --- --- --- --- --- --- --- From: Marquis Ny To: DEIRDRE IYER Sent: 09/13/23 02:31:03 AM EDT Subject: Discharge Summary Ready to View A summary regarding your recent visit is available in the Documents section of your health record. Normal [facility] HCV Antibody RFX to Quant PC Jun 09-13-2023 HCV IgG IA Ql Non-Reactive Invalid Interpretation Code Non Reactive [facility] Comment on above: Result Comment: Perf ormed at: [facility] [id number] PhD Rekha Martinez Performed By: #### 2 [id number] #### [facility] [address] [place] [address] HIV Screen 4th Generation wR fxon 09-13-2023 HIV 1+2 Ab+HIV1 p24 Ag IA Ql Non-Reactive Invalid Interpretation Code Non Reactive [facility] Comment on above: Result Comment: HIV Negative HIV-1/HIV-2 antibodies and HIV-1 p24 antigen were NOT detected. There is no laboratory evidence of HIV infection. Performed at: [facility] [id number] PhD Rekha Martinez Performed By: #### 9 [id number] #### [facility] [address] [place] [address] Hep Bs Agon 09-13-2023 HBV surface Ag IA Ql Negative Invalid Interpretation Code Negative [facility] Comment on above: Result Comment: Perf ormed at: [facility] [id number] PhD Rekha Martinez Performed By: #### 2 [id number] #### [facility] [address] [place] [address] Interdisciplinary Note - Soc ial Workeron 09-13-2023 Interdisciplinary Note - [employer] [place] Interdisciplinary Note - As[employer] [place] There was a system generated request for a SW as a result of 1 visit and a h/o drug use. SW met with the patient while the mother was in the room. She shared that she did not feel it was necessary to go to all the appointments as they all the same. She shared there were no barriers in terms of transportation or insurance getting her to an appointments. She has one other child Little Roblero born 09/15/2019, that had an open case in [facility] that was soon closed as a result of a positive drug screen for marijuana. She voiced that she feels that they do not have any unmet needs at home. She shared that she has a medical card for PTSD used early in the . 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 JEAN informed them that a referral would need to be made to Children Services in [facility]. JEAN will remain available. JEAN made a CPS referral for baby girl Kristel Roblero born 09/11/2023 and spoke with Alyssa. Normal [facility] RPR with Conf Rfxon 09-13-19 24 Reagin Ab RPR Ql (S) Non-Reactive Invalid Interpretation Code Non Reactive [facility] Comment on above: Result Comment: Perf ormed at: [facility] [id number] PhD Rekha Martinez Performed By: #### 1 [id number] #### [facility] [address] [place] [address] Rubella IgGon 09-13-2023 Rubella virus IgG Qn (S) 3.51 [IU]/mL Invalid Interpretation Code Immune >0.99 [facility] Comment on above: Result Comment: Non- immune <0.90 Equivocal 0.90 - 0.99 Immune >0.99 Performed at: [facility] [id number] PhD Rekha Martinez Performed By: #### 1 [id number] #### [facility] [address] [place] [address] Rubella IgMon 09-13-2023 Rubella virus IgM IA Qn (S) <20.0 Invalid Interpretation Code 0.0-19.9 [facility] Comment on above: Result Comment: Nega tive <20.0 Equivocal 20.0 - 24.9 Positive >24.9 Performed at: [facility] [address] [id number] PhD Rekha Martinez Performed By: #### 1 [id number] #### [facility] [address] [place] [address] Surgical Pathology Reporton 09-13-2023 Surgical Pathology Report [facility] [address] [facility] [place] [address]- Surgical Pathology Report Collected Date/Time: 09/11/2023 08:25 EDT Pathologist: Benigno Blank MD Received Date/Time: 09/12/2023 07:26 EDT Lee Ann Roldan DO, DO, Mona J. 07 Surgical Pathology Report - 09/13/2023 12:55 EDT - Auth (Verified) Final Diagnosis PLACENTA, VAGINAL DELIVERY: - Mature placental tissue with areas of fibrinoid necrosis and villous infarct - Marginally inserted umbilical cord with two arteries and one vein - Unremarkable membranes (Electronic Signature) Shahram. Abhay MD 09/13/2023 12:55 Clinical Information Pre-Op Diagnosis: Labor and Delivery Procedure: Vaginal Delivery Post-Op Diagnosis: Labor and Delivery Gestational Age (Weeks): 39 Gestational Age (Days): 6 Specimen(s) Received Placenta Gross Description Received fresh labeled with patient name, number, and placenta is an intact placenta with attached membranes and umbilical cord. The membranes are marginally inserted and the point of rupture is approximately 6 cm from the margin. The membranes are pink and opaque with a slight dusky hue. Umbilical cord is eccentrically inserted 4 cm from the nearest free edge. It is 44 cm long and up to 1.2 cm in diameter. Cord cross-section contains three blood vessels. Approximately 10 of the umbilical cord is submitted for outside additional testing. The placenta disc is round measuring 16.5 x 16 x 2 cm and weighs 367 g without membranes and umbilical cord. Cross-sectioning through the placenta disc contains red spongy granular tissue, an area of consolidation at the outer rim of the placenta disc measuring 2 x 1 cm, a consolidation measuring 0.8 x 0.5 cm, and a mild amount of calcifications is present. Surgical Garment Inspector portion is submitted in four cassettes: 1 - Cord and membrane 2-4 - Surgical Garment Inspector portion of remainder of the placenta (DC) DC:MCA Microscopic Description Microscopic examination performed unless gross only specified. Normal [facility] Comment on above: Performed By: #### 4 [id number] #### [facility] [address] [place] [address] CBC w/Indiceson 09-12-2023 Erythrocyte distribution width (RBC) [Ratio] 12.9 % Normal 10.9-14.2 [facility] Comment on above: Performed By: #### 2 [id number] ####[facility] [address] [place] [address] Hematocrit (Bld) [Volume fraction] 31.7 % Low 34.0-46.0 [facility] Comment on above: Performed By: #### 2 [id number] ####[facility] [address] [place] [address] Hemoglobin (Bld) [Mass/Vol] 10.8 g/dL Low 12.0-16.0 [facility] Comment on above: Performed By: #### 2 [id number] ####[facility] [address] [place] [address] MCH (RBC) [Entitic mass] 31.7 pg Normal 27.0-34.0 [facility] Comment on above: Performed By: #### 2 [id number] ####[facility] [address] [place] [address] MCHC (RBC) [Mass/Vol] 34.0 g/dL Normal 31.4-36.[address] [facility] Comment on above: Performed By: #### 2 [id number] ####[facility] [address] [place] [address] MCV (RBC) [Entitic vol] 93.3 fL Normal 80.0-100.0 [facility] Comment on above: Performed By: #### 2 [id number] ####[facility] [address] [place] [address] Platelet mean volume (Bld) [Entitic vol] 9.5 fL Normal 6.4-10.8 [facility] Comment on above: Performed By: #### 2 [id number] ####[facility] [address] [place] [address] Platelets (Bld) [#/Vol] 144.0 E9/L Low 150.0-500.0 [facility] Comment on above: Performed By: #### 2 [id number] ####[place] [address] RBC (Bld) [#/Vol] 3.4 E12/L Low 4.3-5.9 [facility] Comment on above: Performed By: #### 2 [id number] ####[place] [address] RBC size Nom (Bld) NORMAL Invalid Interpretation Code [facility] Comment on above: Performed By: #### 2 [id number] ####[place] [address] WBC corrected for nucl RBC Auto (Bld) [#/Vol] 10.5 E9/L Normal 4.0-11.0 [facility] Comment on above: Performed By: #### 2 [id number] ####[place] [address] Group B Strep by PCRon 09-11 Group B Strep colonization by PCR Negative Normal Negative [facility] Comment on above: Performed By: #### 4 [id number] #### [facility] [address] [place] [address] HEMATOLOGYOrdered By: SYSTEM SYSTEM on 09-12-2023 Erythrocyte distribution width (RBC) [Ratio] 12.9 % Normal 10.9 - 14.2 % Remisol Heme Hematocrit (Bld) [Volume fraction] 31.7 % Low 34.0 - 46.0 % Remisol Heme Hemoglobin (Bld) [Mass/Vol] 10.8 g/dL Low 12.0 - 16.0 gm/dL Remisol Heme MCH (RBC) [Entitic mass] 31.7 pg Normal 27.0 - 34.0 pg Remisol Heme MCHC (RBC) [Mass/Vol] 34.0 g/dL Normal 31.4 - 36.0 gm/dL Remisol Heme MCV (RBC) [Entitic vol] 93.3 fL Normal 80.0 - 100.0 fL Remisol Heme Platelet mean volume (Bld) [Entitic vol] 9.5 fL Normal 6.4 - 10.8 fL Remisol Heme Platelets (Bld) [#/Vol] 144.0 E9/L Low 150.0 - 500.0 E9/L Remisol Heme RBC (Bld) [#/Vol] 3.4 E12/L Low 4.3 - 5.9 E12/L Remisol Heme RBC size Nom (Bld) NORMAL *NA* (09/12/23 6:11 AM) Invalid Interpretation Code [facility] WBC corrected for nucl RBC Auto (Bld) [#/Vol] 10.5 E9/L Normal 4.0 - 11.0 E9/L [facility] Inpatient Clinical Summaryon 09-12-2023 Inpatient Clinical Summary Inpatient Clinical Summary [address] [address] Clinical Summary Person Information Name: DEIRDRE IYER [facility] Age: 23 Years : 2000 Sex: Female PCP: Mohini Galeano MD Marital Status: Single Phone: [phone] Race: White Ethnicity: Non- or Language: Yemeni Visit Id: Visit Reason: CONTRACTIONS Speciality: Acuity: 1 PP Enc Type: Inpatient Med Service: Obstetrics Arrival: 09/11/2023 02:46:50 Discharge: 09/12/2023 21:13:00 Dispo Type: Home (Routine DC) Address: [address] [place] [address] Provider Notes: Diagnosis: Late care complicating ; (normal spontaneous vaginal delivery); with 39 completed weeks gestation; care insufficient Problems Active Smoker Smoking Status: Current Every Day Smoker Functional Status: Sensory Deficits: History of Falls: Mobility Assistance Prior to Admission: ADLs: Independent Current Level of Assistance for Self-Care/Mobility: Cognitive Status: Allergies codeine (Dizziness) (Vomiting) Seafood (Respiratory distress) Laboratory or Other Results This Visit (last charted value for your 09/11/2023 visit) Hematology 09/12/2023 6:11 AM RBC Morph: NORMAL Hct: 31.7 % -- Normal range between ( 34.0 and 46.0 ) HGB: 10.8 gm/dL -- Normal range between ( 12.0 and 16.0 ) RBC: 3.4 E12/L -- Normal range between ( 4.3 and 5.9 ) RDW: 12.9 % -- Normal range between ( 10.9 and 14.2 ) MCH: 31.7 pg -- Normal range between ( 27.0 and 34.0 ) MCHC: 34.0 gm/dL -- Normal range between ( 31.4 and 36.0 ) MCV: 93.3 fL -- Normal range between ( 80.0 and 100.0 ) MPV: 9.5 fL -- Normal range between ( 6.4 and 10.8 ) Platelet: 144.0 E9/L -- Normal range between ( 150.0 and 500.0 ) WBC: 10.5 E9/L -- Normal range between ( 4.0 and 11.0 ) Urinalysis 09/11/2023 5:30 AM UA Bili: Negative mg/dL UA Color: Colorless UA Glucose: Negative mg/dL UA Ketones: Negative mg/dL UA Leuk Est: Negative Tito/uL UA Mucous: Trace graded/LPF UA Nitrite: Negative mg/dL UA Protein: Negative mg/dL UA RBC: 0-3 graded/HPF UA Urobilinogen: Negative mg/dL UA WBC: 0-5 graded/HPF UA Spec Desc: Burch UA Blood: Negative mg/dL UA Clarity: Clear UA pH: 7.0 -- Normal range between ( 5.0 and 9.0 ) UA Spec Grav: 1.005 -- Normal range between ( 1.005 and 1.030 ) Measurements: Height: 162.5 cm Weight: 73.6 kg Blood Pressure: 116 mmHg / 74 mmHg BMI: 27.87 kg/m2 Procedures No Procedures Documented Immunizations diphtheria/pertussis, acel/tetanus adult (11/02/2011) DTaP, unspecified formulation (1998) DTaP, unspecified formulation (02/18/1999) DTaP, unspecified formulation (06/17/1999) DTaP, unspecified formulation (10/10/2001) DTaP, unspecified formulation (10/23/2003) haemophilus b conj (PRP-OMP) vaccine (1998) haemophilus b conj (PRP-OMP) vaccine (02/18/1999) haemophilus b conj (PRP-OMP) vaccine (06/17/1999) hepatitis B pediatric vaccine (2000) hepatitis B pediatric vaccine (1998) hepatitis B pediatric vaccine (02/18/1999) Hib, unspecified formulation (10/10/2001) human papillomavirus vaccine (06/23/2016) measles/mumps/rubella virus vaccine (06/17/1999) measles/mumps/rubella virus vaccine (10/24/2003) meningococcal conjugate vaccine (06/23/2016) poliovirus vaccine, inactivated (1998) poliovirus vaccine, inactivated (02/18/1999) poliovirus vaccine, inactivated (10/23/2003) varicella virus vaccine (06/17/1999) Final Med List: docusate (docusate sodium 100 mg Cap) 1 Capsules By Mouth 2 times a day. Refills: 1. ibuprofen (ibuprofen 600 mg Tab) 1 Tablets By Mouth every 6 hours as needed Other (see comment). Refills: 1. multivitamin, ( Multivitamins) 1 Tablets By Mouth every day. Care Team Members: Attending Physician: Lee Ann Roldan DO Consulting Physician: Referring Physician: Follow up: With: Address: When: Lee Ann Roldan [address] [place] [address] [address] Business (1) Within 6 weeks Comments: Call Dr if fever>100.5 F, heavy bleeding Call for severe abdominal pain Nothing in the vagina for 6 weeks Call for any problems. Call physician if symptoms worsen Call today to schedule your follow up Patient Education Information: Care After Vaginal Delivery Normal [facility] Inpatient Patient Summaryon 09-12-2023 Inpatient Patient Summary Inpatient Patient Summary [address] [address] Patient Discharge Instructions PERSON INFORMATION Name: DEIRDRE IYER Date of : 2000 Current Date: 09/12/2023 21:59:42 PHYSICIANS Admitting Physician: Lee Ann Roldan DO Primary Care Physician: Mohini Galeano MD PCP Comment: Discharge Diagnosis: Late care complicating ; (normal spontaneous vaginal delivery); with 39 completed weeks gestation; care insufficient Condition at Discharge: Stable DEIRDRE IYER has been given the following list of follow-up instructions, prescriptions, and patient education materials: PATIENT FOLLOW-UP INFORMATION Diet: Regular Activity: Activity as tolerated Wound Care Instructions: Remove Your Dressing IN: Days Call Your Doctor For: Persistent or heavy bleeding, Temperature above 101.5 degrees, Persistent vomiting IF UNABLE TO CONTACT YOUR PHYSICIAN AND YOU FEEL IT IS AN EMERGENCY, GO TO THE NEAREST EMERGENCY ROOM OR CALL 911 Home Treatment: Devices/Equipment: Special Services: Additional Instructions: Physician to provide the following pending test results: None Follow up: With: Address: When: Lee Ann Roldan [facility] [address] [address] Business (1) Within 6 weeks Comments: Call Dr if fever>100.5 F, heavy bleeding Call for severe abdominal pain Nothing in the vagina for 6 weeks Call for any problems. Call physician if symptoms worsen Call today to schedule your follow up In the event that this physician does not participate in your insurance network, please consult with your insurance company to find a nearby participating provider. Comment: JAYLON Nunez FELICITY Y, have received the attached patient education materials/instructions and have verbalized understanding. Patient Signature Date Clinican/Nurse Signature _ Date MEDICATION LIST [facility], [address], [place] [id number], [phone] docusate (docusate sodium 100 mg Cap) 1 Capsules By Mouth 2 times a day. Refills: 1. Last Dose: __Next Dose: __ ibuprofen (ibuprofen 600 mg Tab) 1 Tablets By Mouth every 6 hours as needed Other (see comment). Refills: 1. Last Dose: __Next Dose: __ Medications to Continue with No Changes Other Medications multivitamin, ( Multivitamins) 1 Tablets By Mouth every day. Last Dose: __Next Dose: __ Pharmacy Information: PATIENT EDUCATION INFORMATION Instructions: Care After Vaginal Delivery The following information offers guidance about how to care for yourself from the time you deliver your baby to 6?12 weeks after delivery ( period). If you have problems or questions, contact your health care provider for more specific instructions. Follow these instructions at home: Vaginal bleeding ? It is normal to have vaginal bleeding (lochia) after delivery. Wear a sanitary pad for bleeding and discharge. ? During the first week after delivery, the amount and appearance of lochia is often similar to a menstrual period. ? Over the next few weeks, it will gradually decrease to a dry, yellow-brown discharge. ? For most women, lochia stops completely by 4?6 weeks after delivery, but it can vary. ? Change your sanitary pads frequently. Watch for any changes in your flow, such as: ? A sudden increase. ? A change in color. ? Large blood clots. If you pass a blood clot from your vagina, save it and call your health care provider. Do not flush blood clots down the toilet before talking with your health care provider. ? Do not use tampons or douches until your health care provider approves. ? If you are not , your period should return 6?8 weeks after delivery. If you are feeding your baby breast milk only, your period may not return until you stop . Perineal care ? Keep the area between the vagina and the anus (perineum) clean and dry. Use medicated pads and pain-relieving sprays or creams as told. ? If you had a tear or a surgical cut in the perineum (episiotomy), check the area for signs of infection until you are healed. Check for: ? More redness, swelling, or pain. ? Pus or a bad smell. ? You may be given a squirt bottle to use instead of wiping to clean the perineum area after you use the bathroom. Pat the area gently to dry it. ? To relieve pain caused by an episiotomy, a tear, or swollen veins in the anus (hemorrhoids), take a warm sitz bath 2?4 times a day, or as many as told by your health care provider. You can u (more content not included)... Normal [facility] ABO/Rh History Checkon 09-10 ABO/Rh History Check Patient discharged prior [facility] Comment on above: Performed By: #### 1 [id number] #### [facility] [address] [place] [id number] Inpatient Clinical Summaryon 09-11-2023 Inpatient Clinical Summary Inpatient Clinical Summary [address] [address] Clinical Summary Person Information Name: DEIRDRE IYER Maria De Jesus/[facility] Age: 23 Years : 2000 Sex: Female PCP: Mohini Galeano MD Marital Status: Single Phone: [phone] Race: White Ethnicity: Non- or Language: Yemeni Visit Id: Visit Reason: CONTRACTIONS Speciality: Acuity: Labor Enc Type: Inpatient Med Service: Obstetrics Arrival: 09/11/2023 02:46:50 Discharge: Dispo Type: Address: [address] [place] [address] Provider Notes: Diagnosis: Late care complicating ; with 39 completed weeks gestation; care insufficient Problems Active (10/31/2022) Smoker Smoking Status: Current Every Day Smoker Functional Status: Sensory Deficits: History of Falls: Mobility Assistance Prior to Admission: ADLs: Independent Current Level of Assistance for Self-Care/Mobility: Cognitive Status: Allergies codeine (Dizziness) (Vomiting) Seafood (Respiratory distress) Laboratory or Other Results This Visit (last charted value for your 09/11/2023 visit) Urinalysis 09/11/2023 5:30 AM UA Bili: Negative mg/dL UA Color: Colorless UA Glucose: Negative mg/dL UA Ketones: Negative mg/dL UA Leuk Est: Negative Tito/uL UA Mucous: Trace graded/LPF UA Nitrite: Negative mg/dL UA Protein: Negative mg/dL UA RBC: 0-3 graded/HPF UA Urobilinogen: Negative mg/dL UA WBC: 0-5 graded/HPF UA Spec Desc: Burch UA Blood: Negative mg/dL UA Clarity: Clear UA pH: 7.0 -- Normal range between ( 5.0 and 9.0 ) UA Spec Grav: 1.005 -- Normal range between ( 1.005 and 1.030 ) Measurements: Height: 162.5 cm Weight: 73.6 kg Blood Pressure: 128 mmHg / 73 mmHg BMI: 27.87 kg/m2 Procedures No Procedures Documented Immunizations No Immunizations Documented This Visit Final Med List: docusate (docusate sodium 100 mg Cap) 1 Capsules By Mouth 2 times a day. Refills: 1. ibuprofen (ibuprofen 600 mg Tab) 1 Tablets By Mouth every 6 hours as needed Other (see comment). Refills: 1. multivitamin, ( Multivitamins) 1 Tablets By Mouth every day. Care Team Members: Attending Physician: Lee Ann Roldan DO Consulting Physician: Referring Physician: Follow up: Patient Education Information: Care After Vaginal Delivery [facility] Inpatient Patient Summaryon 09-11-2023 Inpatient Patient Summary Inpatient Patient Summary [place] [id number] Patient Discharge Instructions PERSON INFORMATION Name: DEIRDRE IYER Date of : 2000 Current Date: 09/11/2023 09:32:05 PHYSICIANS Admitting Physician: Lee Ann Roldan DO Primary Care Physician: Mohini Galeano MD PCP Comment: Discharge Diagnosis: Late care complicating ; with 39 completed weeks gestation; care insufficient Condition at Discharge: Stable DEIRDRE IYER has been given the following list of follow-up instructions, prescriptions, and patient education materials: PATIENT FOLLOW-UP INFORMATION Diet: Regular Activity: Activity as tolerated Wound Care Instructions: Remove Your Dressing IN: Days Call Your Doctor For: Persistent or heavy bleeding, Temperature above 101.5 degrees, Persistent vomiting IF UNABLE TO CONTACT YOUR PHYSICIAN AND YOU FEEL IT IS AN EMERGENCY, GO TO THE NEAREST EMERGENCY ROOM OR CALL 911 Home Treatment: Devices/Equipment: Special Services: Additional Instructions: Physician to provide the following pending test results: None Follow up: In the event that this physician does not participate in your insurance network, please consult with your insurance company to find a nearby participating provider. Comment: JAYLON Nunez FELICITY Y, have received the attached patient education materials/instructions and have verbalized understanding. Patient Signature Date Clinican/Nurse Signature _ Date MEDICATION LIST New Medications [facility], [place] [id number], [phone] docusate (docusate sodium 100 mg Cap) 1 Capsules By Mouth 2 times a day. Refills: 1. Last Dose: __Next Dose: __ ibuprofen (ibuprofen 600 mg Tab) 1 Tablets By Mouth every 6 hours as needed Other (see comment). Refills: 1. Last Dose: __Next Dose: __ Medications to Continue with No Changes Other Medications multivitamin, ( Multivitamins) 1 Tablets By Mouth every day. Last Dose: __Next Dose: __ Pharmacy Information: PATIENT EDUCATION INFORMATION Instructions: Care After Vaginal Delivery The following information offers guidance about how to care for yourself from the time you deliver your baby to 6?12 weeks after delivery ( period). If you have problems or questions, contact your health care provider for more specific instructions. Follow these instructions at home: Vaginal bleeding ? It is normal to have vaginal bleeding (lochia) after delivery. Wear a sanitary pad for bleeding and discharge. ? During the first week after delivery, the amount and appearance of lochia is often similar to a menstrual period. ? Over the next few weeks, it will gradually decrease to a dry, yellow-brown discharge. ? For most women, lochia stops completely by 4?6 weeks after delivery, but it can vary. ? Change your sanitary pads frequently. Watch for any changes in your flow, such as: ? A sudden increase. ? A change in color. ? Large blood clots. If you pass a blood clot from your vagina, save it and call your health care provider. Do not flush blood clots down the toilet before talking with your health care provider. ? Do not use tampons or douches until your health care provider approves. ? If you are not , your period should return 6?8 weeks after delivery. If you are feeding your baby breast milk only, your period may not return until you stop . Perineal care ? Keep the area between the vagina and the anus (perineum) clean and dry. Use medicated pads and pain-relieving sprays or creams as told. ? If you had a tear or a surgical cut in the perineum (episiotomy), check the area for signs of infection until you are healed. Check for: ? More redness, swelling, or pain. ? Pus or a bad smell. ? You may be given a squirt bottle to use instead of wiping to clean the perineum area after you use the bathroom. Pat the area gently to dry it. ? To relieve pain caused by an episiotomy, a tear, or swollen veins in the anus (hemorrhoids), take a warm sitz bath 2?4 times a day, or as many as told by your health care provider. You can use a bathtub or a basin you put over the toilet as a sitz bath. Breast care ? In the first few days after delivery, your breasts may feel heavy, full, and uncomfortable (breast engorgement). Milk may also leak from your breasts. Ask your health care provider about ways to help relieve the discomfort. ? If you breastfeed: ? Wear a bra that supports your breasts and fits well. Use breast pads to abso (more content not included)... Normal [facility] URINALYSISOrdered By: SYSTEM SYSTEM on 09-11-2023 Bilirubin Ql (U) Negative Normal Negativemg/ dL [facility] UA Auto SS Clarity (U) Clear (09/11/23 5:30 AM) Normal Clear [facility] UA Auto SS Color (U) Colorless 1 *ABN* (09/11/23 5:30 AM) Invalid Interpretation Code Yellow [facility] UA Auto SS Comment on above: Interpretive Data: M icroscopic readings are only performed on those samples that meet specific criteria set forth by [facility]. Glucose Ql (U) Negative Normal Negativemg/ dL [facility] UA Auto SS Hemoglobin Auto test strip (U) [Mass/Vol] Negative Normal Negativemg/ dL [facility] UA Auto SS Ketones Auto test strip Ql (U) Negative Normal Negativemg/ dL [facility] UA Auto SS Leukocyte esterase Auto test strip Ql (U) Negative Normal NegativeLeu /uL [facility] UA Auto SS Mucus Auto Ql (U) Trace graded/LPF Normal Negati vegra ded/LPF [facility] UA Auto SS Nitrite Auto test strip Ql (U) Negative Normal Negativemg/ dL [facility] UA Auto SS pH (U) 7.0 *NA* (09/11/23 5:30 AM) Invalid Interpretation Code 5.0 - 9.0 [facility] UA Auto SS Protein Ql (U) Negative Normal Negativemg/ dL [facility] UA Auto SS RBC Ql (U) 0-3 graded/HPF Normal 0-3graded/H PF [facility] UA Auto SS Specific gravity (U) [Rel density] 1.005 *NA* (09/11/23 5:30 AM) Invalid Interpretation Code 1.005 - 1.030 [facility] UA Auto SS Urobilinogen (U) [Mass/Vol] Negative Normal Negativemg/ dL [facility] UA Auto SS WBC Auto (Urine sed) [#/Area] 0-5 graded/HPF Normal 0-5graded/H PF [facility] UA Auto SS URINALYSISOrdered By: Bo Mcnair on 09-11-2023 UA Spec Desc Burch (09/11/23 5:30 AM) Normal [facility] UA Auto SS ABO/Rhon 09-10-2023 ABO/Rh Positive Invalid Interpretation Code [facility] Comment on above: Performed By: #### 2 [id number] #### [facility] [address] [place] [address] ABSCon 09-10-2023 ABSC Gel Interp Negative Normal [facility] Comment on above: Performed By: #### 1 [id number] #### [facility] [address] [place] [address] BLOOD BANKOrdered By: Bo Mcnair on 09-10-2023 ABO/Rh Interp Positive Invalid Interpretation Code [facility] BB Subsection ABSC Gel Interp Negative (09/10/23 10:20 PM) Normal [facility] BB Subsection Blood Bank ID#on 09-10-2023 BBID# [id number] Invalid Interpretation Code [facility] Comment on above: Performed By: #### 1 [id number] #### [facility] [address] [place] [address] Buprenorphine Scr Uron 09-09 Buprenorphine Ql (U) Negative Invalid Interpretation Code [facility] Comment on above: Result Comment: Nega tive Cutoff: <5 ng/mL These drug screen results are to be used for medical (i.e., treatment) purposes only. Unconfirmed drug screening results must not be used for non-medical purposes (e.g., employment testing, legal testing). Performed By: #### 7 [id number] #### [facility] [address] [place] [address] CBC w/Indiceson 09-10-2023 Erythrocyte distribution width (RBC) [Ratio] 12.6 % Normal 10.9-14.2 [facility] Comment on above: Performed By: #### 2 [id number] #### [facility] [address] [place] [address] Hematocrit (Bld) [Volume fraction] 32.0 % Low 34.0-46.0 [facility] Comment on above: Performed By: #### 2 [id number] #### [facility] [address] [place] [address] Hemoglobin (Bld) [Mass/Vol] 11.4 g/dL Low 12.0-16.0 [facility] Comment on above: Performed By: #### 2 [id number] #### [facility] [address] [place] [address] MCH (RBC) [Entitic mass] 32.8 pg Normal 27.0-34.0 [facility] Comment on above: Performed By: #### 2 [id number] #### [facility] [address] [place] [address] MCHC (RBC) [Mass/Vol] 35.7 g/dL Normal 31.4-36.[address] [facility] Comment on above: Performed By: #### 2 [id number] #### [facility] [address] [place] [address] MCV (RBC) [Entitic vol] 91.8 fL Normal 80.0-100.0 [facility] Comment on above: Performed By: #### 2 [id number] #### [facility] [address] [place] [address] Platelet 186.0 E9/L Normal 150.0-500.0 [facility] Comment on above: Performed By: #### 2 [id number] #### [facility] [address] [place] [address] Platelet mean volume (Bld) [Entitic vol] 9.2 fL Normal 6.4-10.8 [facility] Comment on above: Performed By: #### 2 [id number] #### [facility] [address] [place] [address] RBC (Bld) [#/Vol] 3.5 E12/L Low 4.3-5.9 [facility] Comment on above: Performed By: #### 2 [id number] #### [facility] [address] [place] [address] RBC size Nom (Bld) NORMAL Invalid Interpretation Code [facility] Comment on above: Performed By: #### 2 [id number] #### [facility] [address] [place] [address] WBC corrected for nucl RBC Auto (Bld) [#/Vol] 9.2 E9/L Normal 4.0-11.0 [facility] Comment on above: Performed By: #### 2 [id number] #### [facility] [address] [place] [address] CHEMISTRYOrdered By: SYSTEM SYSTEM on 09-10-2023 Amphetamines Screen method >1000 ng/mL Ql (U) NEGATIVE 7 (09/10/23 8:46 PM) Normal NEGATIVE [facility] Comment on above: Interpretive Data: N egative Cutoff: <1000 ng/mL Barbiturates Screen Ql (U) NEGATIVE 8 (09/10/23 8:46 PM) Normal NEGATIVE [facility] Comment on above: Interpretive Data: N egative Cutoff: <200 ng/mL Benzodiazepines Ql (U) NEGATIVE 1 (09/10/23 8:46 PM) Normal NEGATIVE [facility] Comment on above: Interpretive Data: N egative Cutoff: <200 ng/mL Cannabinoids Screen Ql (U) NEGATIVE 6 (09/10/23 8:46 PM) Normal NEGATIVE [facility] Comment on above: Interpretive Data: N egative Cutoff: <50 ng/mL Cocaine Ql (U) NEGATIVE 2 (09/10/23 8:46 PM) Normal NEGATIVE [facility] Comment on above: Interpretive Data: N egative Cutoff: <300 ng/mL Opiates Screen Ql (U) NEGATIVE 4 (09/10/23 8:46 PM) Normal NEGATIVE [facility] Comment on above: Interpretive Data: N egative Cutoff: <300 ng/mL Phencyclidine Screen method >25 ng/mL Ql (U) NEGATIVE 5 (09/10/23 8:46 PM) Normal NEGATIVE [facility] Comment on above: Interpretive Data: N egative Cutoff: <25 ng/mL These drug screen results are to be used for medical (i.e., treatment) purposes only. Unconfirmed drug screening results must not be used for non-medical purposes (e.g., employment testing, legal testing). U Fentanyl NEGATIVE 9 (09/10/23 8:46 PM) Normal NEGATIVE [facility] Comment on above: Interpretive Data: N egative Cutoff: <5 ng/mL These drug screen results are to be used for medical (i.e., treatment) purposes only. Unconfirmed drug screening results must not be used for non-medical purposes (e.g., employment testing, legal testing). CHEMISTRYOrdered By: Chavez Cronin on 09-10-2023 Buprenorphine Ql (U) Negative Invalid Interpretation Code [facility] Comment on above: Interpretive Data: N egative Cutoff: <5 ng/mL These drug screen results are to be used for medical (i.e., treatment) purposes only. Unconfirmed drug screening results must not be used for non-medical purposes (e.g., employment testing, legal testing). HEMATOLOGYOrdered By: [employer] SYSTEM on 09-10-2023 Erythrocyte distribution width (RBC) [Ratio] 12.6 % Normal 10.9 - 14.2 % [facility] Hematocrit (Bld) [Volume fraction] 32.0 % Low 34.0 - 46.0 % [facility] Hemoglobin (Bld) [Mass/Vol] 11.4 g/dL Low 12.0 - 16.0 gm/dL [facility] MCH (RBC) [Entitic mass] 32.8 pg Normal 27.0 - 34.0 pg [facility] MCHC (RBC) [Mass/Vol] 35.7 g/dL Normal 31.4 - 36.0 gm/dL [facility] MCV (RBC) [Entitic vol] 91.8 fL Normal 80.0 - 100.0 fL [facility] Platelet 186.0 E9/L Normal 150.0 - 500.0 E9/L [facility] Platelet mean volume (Bld) [Entitic vol] 9.2 fL Normal 6.4 - 10.8 fL [facility] RBC (Bld) [#/Vol] 3.5 E12/L Low 4.3 - 5.9 E12/L [facility] RBC size Nom (Bld) NORMAL *NA* (09/10/23 10:20 PM) Invalid Interpretation Code [facility] WBC corrected for nucl RBC Auto (Bld) [#/Vol] 9.2 E9/L Normal 4.0 - 11.0 E9/L [facility] Inpatient Clinical Summaryon 09-10-2023 Inpatient Clinical Summary Inpatient Clinical Summary [place] [address] Clinical Summary Person Information Name: DEIRDRE IYER Maria De Jesus/[place] Age: 23 Years : 2000 Sex: Female PCP: Mohini Galeano MD Marital Status: Single Phone: [phone] Race: White Ethnicity: Non- or Language: Yemeni Visit Id: Visit Reason: POSSIBLE LABOR Speciality: Acuity: Obs Enc Type: OB Triage Med Service: Obstetrics Arrival: 09/10/2023 20:15:48 Discharge: 09/10/2023 22:35:00 Dispo Type: Home (Routine DC) Address: [address] [place] [address] Provider Notes: Diagnosis: Problems Active Smoker Smoking Status: Current Every Day Smoker Functional Status: Sensory Deficits: History of Falls: Mobility Assistance Prior to Admission: ADLs: Current Level of Assistance for Self-Care/Mobility: Cognitive Status: Allergies No Known Allergies Laboratory or Other Results This Visit (last charted value for your 09/10/2023 visit) Hematology 09/10/2023 10:20 PM RBC Morph: NORMAL Hct: 32.0 % -- Normal range between ( 34.0 and 46.0 ) HGB: 11.4 gm/dL -- Normal range between ( 12.0 and 16.0 ) RBC: 3.5 E12/L -- Normal range between ( 4.3 and 5.9 ) RDW: 12.6 % -- Normal range between ( 10.9 and 14.2 ) MCH: 32.8 pg -- Normal range between ( 27.0 and 34.0 ) MCHC: 35.7 gm/dL -- Normal range between ( 31.4 and 36.0 ) MCV: 91.8 fL -- Normal range between ( 80.0 and 100.0 ) MPV: 9.2 fL -- Normal range between ( 6.4 and 10.8 ) Platelet: 186.0 E9/L -- Normal range between ( 150.0 and 500.0 ) WBC: 9.2 E9/L -- Normal range between ( 4.0 and 11.0 ) Urinalysis 09/10/2023 8:46 PM UA Bili: Negative mg/dL UA Color: Light-Yellow UA Glucose: Negative mg/dL UA Ketones: Negative mg/dL UA Leuk Est: 25 Tito/uL Tito/uL UA Mucous: Trace graded/LPF UA Nitrite: Negative mg/dL UA Protein: Trace mg/dL UA RBC: 0-3 graded/HPF UA Squam Epithelial: >10 graded/HPF UA Urobilinogen: Negative mg/dL UA WBC: 0-5 graded/HPF UA Spec Desc: Clean Catch UA Blood: Negative mg/dL UA Clarity: Clear UA pH: 6.5 -- Normal range between ( 5.0 and 9.0 ) UA Spec Grav: 1.019 -- Normal range between ( 1.005 and 1.030 ) Chemistry 09/10/2023 8:46 PM U Benzodia Scr: NEGATIVE U Cocaine Scr: NEGATIVE U Opiate Scr: NEGATIVE U PCP Scr: NEGATIVE U Cannab Scr: NEGATIVE U Amph Scr: NEGATIVE U Ryann Scr: NEGATIVE U Suboxone Scr: NEGATIVE U Fentanyl: NEGATIVE Measurements: Height: 157.44 cm Weight: 64.5 kg Blood Pressure: 139 mmHg / 79 mmHg BMI: 26.02 kg/m2 Procedures No Procedures Documented Immunizations No Immunizations Documented This Visit Final Med List: naproxen (Naprosyn 500 mg Tab) 1 Tablets By Mouth 2 times a day. Refills: 0. Care Team Members: Attending Physician: Lee Ann Roldan DO Consulting Physician: Referring Physician: Follow up: With: Address: When: Lee Ann Roldan [facility] [address] [address] Business (1) In 2 days 09/12/2023 Comments: Call for any problems. Call for fever > 100.5 F Call for severe abdominal pain Call physician for heavy vaginal bleeding Call physician if symptoms worsen Call today to schedule your follow up Return for contractions closer, longer, harder Return for decreased movement Return if ruptured membranes or vaginal bleeding Patient Education Information: Normal [facility] Inpatient Clinical Summary Inpatient Clinical Summary [place] [id number] Clinical Summary Person Information Name: DEIRDRE IYER Maria De [place] Age: 23 Years : 2000 Sex: Female PCP: Mohini Galeano MD Marital Status: Single Phone: [phone] Race: White Ethnicity: Non- or Language: Yemeni Visit Id: Visit Reason: POSSIBLE LABOR Speciality: Acuity: Obs Enc Type: OB Triage Med Service: Obstetrics Arrival: 09/10/2023 20:15:48 Discharge: Dispo Type: Address: [address] [place] [address] Provider Notes: Diagnosis: Problems Active Smoker Smoking Status: Current Every Day Smoker Functional Status: Sensory Deficits: History of Falls: Mobility Assistance Prior to Admission: ADLs: Current Level of Assistance for Self-Care/Mobility: Cognitive Status: Allergies No Known Allergies Laboratory or Other Results This Visit (last charted value for your 09/10/2023 visit) Urinalysis 09/10/2023 8:46 PM UA Bili: Negative mg/dL UA Color: Light-Yellow UA Glucose: Negative mg/dL UA Ketones: Negative mg/dL UA Leuk Est: 25 Tito/uL Tito/uL UA Mucous: Trace graded/LPF UA Nitrite: Negative mg/dL UA Protein: Trace mg/dL UA RBC: 0-3 graded/HPF UA Squam Epithelial: >10 graded/HPF UA Urobilinogen: Negative mg/dL UA WBC: 0-5 graded/HPF UA Spec Desc: Clean Catch UA Blood: Negative mg/dL UA Clarity: Clear UA pH: 6.5 -- Normal range between ( 5.0 and 9.0 ) UA Spec Grav: 1.019 -- Normal range between ( 1.005 and 1.030 ) Chemistry 09/10/2023 8:46 PM U Benzodia Scr: NEGATIVE U Cocaine Scr: NEGATIVE U Opiate Scr: NEGATIVE U PCP Scr: NEGATIVE U Cannab Scr: NEGATIVE U Amph Scr: NEGATIVE U Ryann Scr: NEGATIVE U Suboxone Scr: NEGATIVE U Fentanyl: NEGATIVE Measurements: Height: 157.44 cm Weight: 64.5 kg Blood Pressure: 139 mmHg / 79 mmHg BMI: 26.02 kg/m2 Procedures No Procedures Documented Immunizations No Immunizations Documented This Visit Final Med List: naproxen (Naprosyn 500 mg Tab) 1 Tablets By Mouth 2 times a day. Refills: 0. Care Team Members: Attending Physician: Lee Ann Roldan DO Consulting Physician: Referring Physician: Follow up: With: Address: When: Lee Ann Yuli [facility] [employer] [address] [place] [id number] Aras (1) In 2 days 09/12/2023 Comments: Call for any problems. Call for fever > 100.5 F Call for severe abdominal pain Call physician for heavy vaginal bleeding Call physician if symptoms worsen Call today to schedule your follow up Return for contractions closer, longer, harder Return for decreased movement Return if ruptured membranes or vaginal bleeding Patient Education Information: Normal [facility] Inpatient Patient Summaryon 09-10-2023 Inpatient Patient Summary Inpatient Patient Summary [address] [address] Patient Discharge Instructions PERSON INFORMATION Name: DEIRDRE IYER Date of : 2000 Current Date: 09/10/2023 23:12:53 PHYSICIANS Admitting Physician: Lee Ann Roldan DO Primary Care Physician: Mohini Galeano MD PCP Comment: Discharge Diagnosis: Condition at Discharge: DEIRDRE IYER has been given the following list of follow-up instructions, prescriptions, and patient education materials: PATIENT FOLLOW-UP INFORMATION Diet: Activity: Wound Care Instructions: Remove Your Dressing IN: Days Call Your Doctor For: IF UNABLE TO CONTACT YOUR PHYSICIAN AND YOU FEEL IT IS AN EMERGENCY, GO TO THE NEAREST EMERGENCY ROOM OR CALL 911 Home Treatment: Devices/Equipment: Special Services: Additional Instructions: Physician to provide the following pending test results: Follow up: With: Address: When: Stanton Villalobos, [facility] [address] [place] [id number] Aras (1) In 2 days 09/12/2023 Comments: Call for any problems. Call for fever > 100.5 F Call for severe abdominal pain Call physician for heavy vaginal bleeding Call physician if symptoms worsen Call today to schedule your follow up Return for contractions closer, longer, harder Return for decreased movement Return if ruptured membranes or vaginal bleeding In the event that this physician does not participate in your insurance network, please consult with your insurance company to find a nearby participating provider. Comment: JAYLON Nunez FELICITY Y, have received the attached patient education materials/instructions and have verbalized understanding. Patient Signature Date Clinican/Nurse Signature _ Date MEDICATION LIST Medications to Continue with No Changes Other Medications naproxen (Naprosyn 500 mg Tab) 1 Tablets By Mouth 2 times a day. Refills: 0. Last Dose: __Next Dose: __ Pharmacy Information: PATIENT EDUCATION INFORMATION Instructions: Medication Leaflets: You may receive a survey from [employer] asking you to rate your care experience. Your feedback is important and will help us understand what we do well and how we can improve the quality of care we provide to you, your loved ones and our community. It?s an honor to serve you. Patient Portal You may access all of your results and other medical record information on our secure patient portal. If you are not signed up for this yet, please contact [employer] at [phone] to get signed up today. RYANNE Award Nomination The RYANNE (Diseases Attacking the Immune SYstem) Award is an international recognition program that honors and celebrates the skillful, compassionate care nurses provide every day. Anyone who experiences or observes amazing care being provided by a nurse is encouraged to submit a nomination. To nominate your nurse, use your smart phone to scan the QR code below. Thank you for choosing [facility] Inpatient Patient Summary Inpatient Patient Summary [address] [address] Patient Discharge Instructions PERSON INFORMATION Name: DEIRDRE IYER Date of : 2000 Current Date: 09/10/2023 22:27:37 PHYSICIANS Admitting Physician: Lee Ann Roldan DO Primary Care Physician: Mohini Galeano MD PCP Comment: Discharge Diagnosis: Condition at Discharge: DEIRDRE IYER has been given the following list of follow-up instructions, prescriptions, and patient education materials: PATIENT FOLLOW-UP INFORMATION Diet: Activity: Wound Care Instructions: Remove Your Dressing IN: Days Call Your Doctor For: IF UNABLE TO CONTACT YOUR PHYSICIAN AND YOU FEEL IT IS AN EMERGENCY, GO TO THE NEAREST EMERGENCY ROOM OR CALL 911 Home Treatment: Devices/Equipment: Special Services: Additional Instructions: Physician to provide the following pending test results: Follow up: With: Address: When: Lee Ann Roldan [address], [address] [address] Business (1) In 2 days 09/12/2023 Comments: Call for any problems. Call for fever > 100.5 F Call for severe abdominal pain Call physician for heavy vaginal bleeding Call physician if symptoms worsen Call today to schedule your follow up Return for contractions closer, longer, harder Return for decreased movement Return if ruptured membranes or vaginal bleeding In the event that this physician does not participate in your insurance network, please consult with your insurance company to find a nearby participating provider. Comment: JAYLON Nunez MAURILIONORBERTO Avalos, have received the attached patient education materials/instructions and have verbalized understanding. Patient Signature Date Clinican/Nurse Signature _ Date MEDICATION LIST Medications to Continue with No Changes Other Medications naproxen (Naprosyn 500 mg Tab) 1 Tablets By Mouth 2 times a day. Refills: 0. Last Dose: __Next Dose: __ Pharmacy Information: PATIENT EDUCATION INFORMATION Instructions: Medication Leaflets: You may receive a survey from [employer] asking you to rate your care experience. Your feedback is important and will help us understand what we do well and how we can improve the quality of care we provide to you, your loved ones and our community. It?s an honor to serve you. Patient Portal You may access all of your results and other medical record information on our secure patient portal. If you are not signed up for this yet, please contact [employer] at [phone] to get signed up today. RYANNE Award Nomination The RYANNE (Diseases Attacking the Immune SYstem) Award is an international recognition program that honors and celebrates the skillful, compassionate care nurses provide every day. Anyone who experiences or observes amazing care being provided by a nurse is encouraged to submit a nomination. To nominate your nurse, use your smart phone to scan the QR code below. Thank you for choosing [facility] U Drug Screenon 09-10-2023 Amphetamines Screen method >1000 ng/mL Ql (U) Negative Normal NEGATIVE [facility] Comment on above: Result Comment: Nega tive Cutoff: <1000 ng/mL Performed By: #### 2 [id number] #### [facility] [address] [place] [address] Barbiturates Screen Ql (U) Negative Normal NEGATIVE [facility] Comment on above: Result Comment: Nega tive Cutoff: <200 ng/mL Performed By: #### 2 [id number] #### [facility] [address] [place] [address] Benzodiazepines Ql (U) Negative Normal NEGATIVE [facility] Comment on above: Result Comment: Nega tive Cutoff: <200 ng/mL Performed By: #### 2 [id number] #### [facility] [address] [place] [address] Cannabinoids Screen Ql (U) Negative Normal NEGATIVE [facility] Comment on above: Result Comment: Nega tive Cutoff: <50 ng/mL Performed By: #### 2 [id number] #### [facility] [address] [place] [address] Cocaine Ql (U) Negative Normal NEGATIVE [facility] Comment on above: Result Comment: Nega tive Cutoff: <300 ng/mL Performed By: #### 2 [id number] #### [facility] [address] [place] [address] Opiates Screen Ql (U) Negative Normal NEGATIVE [facility] Comment on above: Result Comment: Nega tive Cutoff: <300 ng/mL Performed By: #### 2 [id number] #### [facility] [address] [place] [address] Phencyclidine Screen method >25 ng/mL Ql (U) Negative Normal NEGATIVE [facility] Comment on above: Result Comment: Nega tive Cutoff: <25 ng/mL These drug screen results are to be used for medical (i.e., treatment) purposes only. Unconfirmed drug screening results must not be used for non-medical purposes (e.g., employment testing, legal testing). Performed By: #### 2 [id number] #### [facility] [address] [place] [address] U Fentanyl Negative Normal NEGATIVE [facility] Comment on above: Result Comment: Nega tive Cutoff: <5 ng/mL These drug screen results are to be used for medical (i.e., treatment) purposes only. Unconfirmed drug screening results must not be used for non-medical purposes (e.g., employment testing, legal testing). Performed By: #### 2 [id number] #### [facility] [address] [place] [address] UA with Cult [employer]flxon 09-10-19 24 Bilirubin Ql (U) Negative Normal Negative [facility] Comment on above: Performed By: #### 4 [id number] #### [facility] [address] [id number] Clarity (U) Clear Normal Clear [facility] Comment on above: Performed By: #### 4 [id number] #### [facility] [address] [place] [address] Color (U) Light-Yellow Normal Yellow [facility] Comment on above: Result Comment: Micr oscopic readings are only performed on those samples that meet specific criteria set forth by [facility]. Performed By: #### 4 [id number] #### [facility] [address] [place] [address] Epithelial cells.squamous Auto (Urine sed) [#/Area] >10 Invalid Interpretation Code [facility] Comment on above: Performed By: #### 4 [id number] #### [facility] [address] [place] [address] Glucose Ql (U) Negative Normal Negative [facility] Comment on above: Performed By: #### 4 [id number] #### [facility] [address] [place] [address] Hemoglobin Auto test strip (U) [Mass/Vol] Negative Normal Negative [facility] Comment on above: Performed By: #### 4 [id number] #### [facility] [address] [place] [address] Ketones Auto test strip Ql (U) Negative Normal Negative [facility] Comment on above: Performed By: #### 4 [id number] #### [facility] [address] [place] [address] Leukocyte esterase Auto test strip Ql (U) 25 Tito/uL Normal Negative [facility] Comment on above: Performed By: #### 4 [id number] #### [facility] [address] [place] [address] Mucus Auto Ql (U) Trace Normal Negative [facility] Comment on above: Performed By: #### 4 [id number] #### [facility] [address] [place] [address] Nitrite Auto test strip Ql (U) Negative Normal Negative [facility] Comment on above: Performed By: #### 4 [id number] #### [facility] [address] [place] [address] pH (U) 6.5 [pH] Invalid Interpretation Code 5.0-9.0 [facility] Comment on above: Performed By: #### 4 [id number] #### [facility] [address] [place] [address] Protein Ql (U) Trace Abnormal Negative [facility] Comment on above: Performed By: #### 4 [id number] #### [facility] [address] [place] [address] RBC Ql (U) 0-3 Normal 0-3 [facility] Comment on above: Performed By: #### 4 [id number] #### [facility] [address] [place] [address] Specific gravity (U) [Rel density] 1.019 Invalid Interpretation Code 1.005-1.030 [facility] Comment on above: Performed By: #### 4 [id number] #### [facility] [address] [id number] Urobilinogen (U) [Mass/Vol] Negative Normal Negative [facility] Comment on above: Performed By: #### 4 [id number] #### [facility] [address] [id number] WBC Auto (Urine sed) [#/Area] 0-5 Normal 0-5 [facility] Comment on above: Performed By: #### 4 [id number] #### [facility] [address] [place] [address] Type of Urine collection method Clean Catch Normal [facility] Comment on above: Performed By: #### 4 [id number] #### [facility] [address] [place] [address] URINALYSISOrdered By: SYSTEM SYSTEM on 09-10-2023 Bilirubin Ql (U) Negative Normal Negativemg/ dL [facility] UA Auto SS Clarity (U) Clear (09/10/23 8:46 PM) Normal Clear [facility] UA Auto SS Color (U) Light-Yellow 3 (09/10/23 8:46 PM) Normal Yellow [facility] UA Auto SS Comment on above: Interpretive Data: M icroscopic readings are only performed on those samples that meet specific criteria set forth by [facility]. Epithelial cells.squamous Auto (Urine sed) [#/Area] >10 graded/HPF Invalid Interpretation Code [facility] UA Auto SS Glucose Ql (U) Negative Normal Negativemg/ dL [facility] UA Auto SS Hemoglobin Auto test strip (U) [Mass/Vol] Negative Normal Negativemg/ dL [facility] UA Auto SS Ketones Auto test strip Ql (U) Negative Normal Negativemg/ dL [facility] UA Auto SS Leukocyte esterase Auto test strip Ql (U) 25 Tito/uL Tito/uL Normal NegativeLeu /uL [facility] UA Auto SS Mucus Auto Ql (U) Trace graded/LPF Normal Negati vegra ded/LPF [facility] UA Auto SS Nitrite Auto test strip Ql (U) Negative Normal Negativemg/ dL [facility] UA Auto SS pH (U) 6.5 *NA* (09/10/23 8:46 PM) Invalid Interpretation Code 5.0 - 9.0 [facility] UA Auto SS Protein Ql (U) Trace mg/dL Invalid Interpretation Code Negativemg/ dL [facility] UA Auto SS RBC Ql (U) 0-3 graded/HPF Normal 0-3graded/H PF [facility] UA Auto SS Specific gravity (U) [Rel density] 1.019 *NA* (09/10/23 8:46 PM) Invalid Interpretation Code 1.005 - 1.030 [facility] UA Auto SS Urobilinogen (U) [Mass/Vol] Negative Normal Negativemg/ dL [facility] UA Auto SS WBC Auto (Urine sed) [#/Area] 0-5 graded/HPF Normal 0-5graded/H PF [facility] UA Auto SS URINALYSISOrdered By: Krystyna Brooks on 09-10-2023 UA Spec Desc Clean Catch (09/10/23 8:46 PM) Normal [facility] UA Auto SS HCG ( test) Ql (U)o n 04-25-2023 Interpretation and review of laboratory results Abnormal [facility] Preg Test, Ur Positive [facility] Urinalysis macro (dipstick) panel (U)on 04-25-2023 Bilirubin, UA Negative Negative - 4(70) +++ mg/dL [facility] Blood, UA Negative Negative - 50 José/mcL [facility] Clarity, UA Clear [facility] Color, UA Yellow [facility] Glucose, UA Negative Negative - 1999(110) ++++ mg/dL [facility] Interpretation and review of laboratory results Normal [facility] Ketones, UA Negative Negative - 160(16) ++++ mg/dL [facility] Leukocytes, UA Negative Negative - 500+++ Tito/mcL [facility] Nitrite, UA Negative Negative - Positive [facility] pH, UA 5.5 5 - 9 [facility] Protein, UA Negative Negative - 2000(20) ++++ mg/dL [facility] Spec Grav, UA 1.020 1 - 1.03 [facility] Urobilinogen, UA 1.0 0.2 - 12 mg/dL [facility] Alanine aminotransferase [En zymatic activity/volume] in Serum or PlasmaOrdered By: Ephraim Santoyo on 10-14-2022 ALT [Catalytic activity/Vol] 7 U/L 7-52 [facility] Albumin [Mass/volume] in Ser um or Plasma by Bromocresol green (BCG) dye binding methoOrdered By: Ephraim Santoyo on 10-14-2022 Albumin BCG dye [Mass/Vol] 4.5 g/dL 3.5-5.7 [facility] Alkaline phosphatase [Enzyma tic activity/volume] in Serum or PlasmaOrdered By: Ephraim Santoyo on 10-14-2022 ALP [Catalytic activity/Vol] 47 U/L 34-104 [facility] Amphetamine Screen Ql (U)Ord ered By: Ephraim Santoyo on 10-14-2022 Amphetamines Ql (U) Negative Negative [facility] Aspartate aminotransferase [ Enzymatic activity/volume] in Serum or PlasmaOrdered By: Ephraim Santoyo on 10-14-2022 AST [Catalytic activity/Vol] 10 U/L 13-39 [facility] Automated erythrocytes count in urine sediment (number/area)Ordered By: Ephraim Santoyo on 10-14-2022 RBC Auto (Urine sed) [#/Area] 10-19 [HPF] 0-4 [facility] Automated leukocytes count i n urine sediment (number/area)Ordered By: Ephraim Santoyo on 10-14-2022 WBC Auto (Urine sed) [#/Area] 20-49 [HPF] 0-4 [facility] Automated urine hyaline cast s count (number/volume)Ordered By: Ephraim Santoyo on 10-14-2022 Hyaline casts Auto (U) [#/Vol] 0-1 [LPF] 0-1 [facility] Automated urine sediment stephen cium oxalate crystal count by microscopy (number/high powOrdered By: Ephraim Santoyo on 10-14-2022 Calcium oxalate crystals LM.HPF (Urine sed) [#/Area] Rare [HPF] [facility] Barbiturates [Presence] in U rine by Screen methodOrdered By: Ephraim Santoyo on 10-14-2022 Barbiturates Screen Ql (U) Negative Negative [facility] Basophils Auto (Bld) [#/Vol] Ordered By: Ephraim Santoyo on 10-14-2022 Basophils (Bld) [#/Vol] 0.1 10*3/uL 0.0-0.2 [facility] Basophils/100 WBC Auto (Bld) Ordered By: Ephraim Santoyo on 10-14-2022 Basophils/100 WBC (Bld) 0.8 % . [facility] Benzodiazepines Screen Ql (U )Ordered By: Ephraim Santoyo on 10-14-2022 Benzodiazepines Ql (U) Negative Negative Fi [facility] Benzoylecgonine [Presence] i n Urine by Screen methodOrdered By: Ephraim Santoyo on 10-14-2022 Benzoylecgonine Screen Ql (U) Negative Negative [facility] Bilirubin Test strip Ql (U)O rdered By: Ephraim Santoyo on 10-14-2022 Bilirubin Ql (U) Negative Negative [facility] Bilirubin.total [Mass/volume ] in Serum or PlasmaOrdered By: Ephraim Santoyo on 10-14-2022 Bilirubin [Mass/Vol] 0.3 mg/dL 0.3-1.0 [facility] Calcium [Mass/volume] in Ser um or PlasmaOrdered By: pEhraim Santoyo on 10-14-2022 Calcium [Mass/Vol] 9.0 mg/dL 8.6-10.3 [facility] Cannabinoids [Presence] in U rine by Screen methodOrdered By: Ephraim Santoyo on 10-14-2022 Cannabinoids Screen Ql (U) Positive Negative [facility] Comment on above: These are unconfirme d results and should not be used for legal purposes. Drug Cut-Off Concentration: AMPH 1000 ng/mL RYANN 200 ng/mL ANGELINE 200 ng/mL COCM 300 ng/mL OP 300 ng/mL PCP 25 ng/mL THC 20 ng/mL Carbon dioxide, total [Moles /volume] in Serum or PlasmaOrdered By: Ephraim Santoyo on 10-14-2022 CO2 [Moles/Vol] 24.2 mmol/L 21.0-31.0 [facility] Casts typing in urine sedime nt by light microscopyOrdered By: Ephraim Santoyo on 10-14-2022 Casts LM Nom (Urine sed) None seen [LPF] None Seen [facility] Chloride [Moles/volume] in S mack or PlasmaOrdered By: Ephraim Santoyo on 10-14-2022 Chloride [Moles/Vol] 106 mmol/L 98-107 [facility] Cholesterol [Mass/volume] in Serum or PlasmaOrdered By: Javi Maradiaga on 10-14-2022 Cholesterol [Mass/Vol] 188 mg/dL 140-200 [facility] Comment on above: Chol less than 200 m g/dl low riskChol 201-239 mg/dl borderline riskChol 240 mg/dl and greater high risk Cholesterol in LDL Calc [Mas s/Vol]Ordered By: Javi Maradiaga on 10-14-2022 Cholesterol in LDL [Mass/Vol] 131 mg/dL 0-100 [facility] Comment on above: LDL ATP III CLASSIFI CATIONLDL less than 100 mg/dL OptimalLDL 100-129 mg/dL Near or above optimalLDL 130-159 mg/dL Borderline highLDL 160-189 mg/dL HighLDL greater than 189 mg/dL Very high Cholesterol in VLDL Calc [Ma ss/Vol]Ordered By: Javi Maradiaga on 10-14-2022 Cholesterol in VLDL [Mass/Vol] 12 mg/dL [facility] Color Auto (U)Ordered By: Nick Santoyo on 10-14-2022 Color (U) Yellow Yellow [facility] Complete Blood Count Auto Di ffon 10-14-2022 Basophils (Bld) [#/Vol] 0.1 10*3/uL Normal 0.0-0.2 [facility] Comment on above: Result Comment: PERF ORMED BY: [place] [address] PATHOLOGIST JANITORIAL ASSISTANT SHANICE SOLORZANO M.D. Performed By: #### C BC, ETOH, CMP #### [facility] [address] [place] [address] [place] Basophils/100 WBC (Bld) 0.8 % Normal . [facility] Comment on above: Performed By: #### C BC, ETOH, CMP #### [facility] [address] [place] [address] [place] Eosinophils (Bld) [#/Vol] 0.1 10*3/uL Normal 0.0-0.45 [facility] Comment on above: Performed By: #### C BC, ETOH, CMP #### [facility] [address] [place] [address] [place] Eosinophils/100 WBC (Bld) 1.8 % Normal . [facility] Comment on above: Performed By: #### C BC, ETOH, CMP #### [facility] [address] Erythrocyte distribution width (RBC) [Ratio] 12.7 % Normal 11.9-15.3 [facility] Comment on above: Performed By: #### C BC, ETOH, CMP #### [address] Hematocrit (Bld) [Volume fraction] 37.9 % Normal 34.0-46.4 [facility] Comment on above: Performed By: #### C BC, ETOH, CMP #### [address] Hemoglobin (Bld) [Mass/Vol] 12.8 g/dL Normal 11.8-15.4 [facility] Comment on above: Performed By: #### C BC, ETOH, CMP #### [address] Lymphocytes (Bld) [#/Vol] 2.3 10*3/uL Normal 1.00-4.8 [facility] Comment on above: Performed By: #### C BC, ETOH, CMP #### [place] [address] [place] Lymphocytes/100 WBC (Bld) 33.4 % Normal . [facility] Comment on above: Performed By: #### C BC, ETOH, CMP #### [address] MCH (RBC) [Entitic mass] 31.2 pg Normal 24.7-34.3 [facility] Comment on above: Performed By: #### C BC, ETOH, CMP #### [address] MCV (RBC) [Entitic vol] 92.0 fL Normal 80-100 [facility] Comment on above: Performed By: #### C BC, ETOH, CMP #### [facility] [address] [place] [address] [place] Mean Corpuscular HGB Conc 33.9 g/dL Normal 32.0-35.0 [facility] Comment on above: Performed By: #### C BC, ETOH, CMP #### [facility] [address] [place] [address] [place] Monocytes (Bld) [#/Vol] 0.5 10*3/uL Normal 0.0-0.8 [facility] Comment on above: Performed By: #### C BC, ETOH, CMP #### [facility] [address] [place] [address] [place] Monocytes/100 WBC (Bld) 17.09 % Normal 0.00-20.00 [facility] Comment on above: Performed By: #### C BC, ETOH, CMP #### [facility] [address] [place] [address] [place] Monocytes/100 WBC (Bld) 8.0 % Normal . [facility] Comment on above: Performed By: #### C BC, ETOH, CMP #### [facility] [address] [place] [address] [place] Neutrophils (Bld) [#/Vol] 3.8 10*3/uL Normal 1.8-7.7 [facility] Comment on above: Performed By: #### C BC, ETOH, CMP #### [facility] [address] [place] [address] [place] Neutrophils/100 WBC (Bld) 56.0 % Normal . [facility] Comment on above: Performed By: #### C BC, ETOH, CMP #### [facility] [address] [place] [address] [place] NRBC% 0.1 /100{WBC} Normal 0-0.5 [facility] Comment on above: Performed By: #### C BC, ETOH, CMP #### [facility] [address] [place] [address] [place] Platelet mean volume (Bld) [Entitic vol] 8.1 fL Normal 6.3-10.7 [facility] Comment on above: Performed By: #### C BC, ETOH, CMP #### [address] Platelets (Bld) [#/Vol] 291 10*3/uL Normal 150-450 [facility] Comment on above: Performed By: #### C BC, ETOH, CMP #### [address] RBC (Bld) [#/Vol] 4.12 10*6/uL Normal 3.60-5.00 [facility] Comment on above: Performed By: #### C BC, ETOH, CMP #### [address] WBC (Bld) [#/Vol] 6.8 10*3/uL Normal 3.8-11.6 [facility] Comment on above: Performed By: #### C BC, ETOH, CMP #### [address] Comprehensive Metabolic Pane teresa 10-14-2022 Albumin [Mass/Vol] 4.5 g/dL Normal 3.5-5.7 [facility] Comment on above: Performed By: #### C BC, ETOH, CMP #### [address] Albumin/Globulin [Mass ratio] 1.6 {ratio} Normal [facility] Comment on above: Performed By: #### C BC, ETOH, CMP #### [address] ALP [Catalytic activity/Vol] 47 U/L Normal 34-104 [facility] Comment on above: Performed By: #### C BC, ETOH, CMP #### [address] ALT [Catalytic activity/Vol] 7 U/L Normal 7-52 [facility] Comment on above: Performed By: #### C BC, ETOH, CMP #### [address] Anion gap [Moles/Vol] 12.1 mmol/L Normal 6.0-15.0 [facility] Comment on above: Performed By: #### C BC, ETOH, CMP #### [facility] [address] [place] [address] [place] AST [Catalytic activity/Vol] 10 U/L Low 13-39 [facility] Comment on above: Performed By: #### C BC, ETOH, CMP #### [facility] [address] [place] [address] [place] Bilirubin [Mass/Vol] 0.3 mg/dL Normal 0.3-1.0 [facility] Comment on above: Performed By: #### C BC, ETOH, CMP #### [facility] [address] Calcium [Mass/Vol] 9.0 mg/dL Normal 8.6-10.3 [facility] Comment on above: Performed By: #### C BC, ETOH, CMP #### [facility] [address] [place] [address] [place] Chloride [Moles/Vol] 106 mmol/L Normal 98-107 [facility] Comment on above: Performed By: #### C BC, ETOH, CMP #### [facility] [address] [place] [address] [place] CO2 [Moles/Vol] 24.2 mmol/L Normal 21.0-31.0 [facility] Comment on above: Performed By: #### C BC, ETOH, CMP #### [facility] [address] [place] [address] [place] Creatinine [Mass/Vol] 0.74 mg/dL Normal 0.60-1.20 [facility] Comment on above: Performed By: #### C BC, ETOH, CMP #### [facility] [address] [place] [address] [place] Creatinine Clr Calc Pharmacy 100.71 Normal [facility] Comment on above: Result Comment: PERF ORMED BY: [place] [address] PATHOLOGIST JANITORIAL ASSISTANT SHANICE SOLORZANO M.D. Performed By: #### C BC, ETOH, CMP #### [facility] [address] [place] [address] [place] GFR/1.73 sq M.predicted MDRD (S/P/Bld) [Vol rate/Area] mL/min/{1.73_m2} [facility] Comment on above: Performed By: #### C BC, ETOH, CMP #### [facility] [address] [place] [address] [place] Globulin (S) [Mass/Vol] 2.9 g/dL [facility] Comment on above: Performed By: #### C BC, ETOH, CMP #### [facility] [address] Glucose [Mass/Vol] 111 mg/dL High 70-100 [facility] Comment on above: Result Comment: [facility] Glucose Reference Range is dependent on time and content of last meal. Glucose of more than 200 mg/dL in a nonstressed, ambulatory subject supports the diagnosis of Diabetes Mellitus. ADA recommended reference range Performed By: #### C BC, ETOH, CMP #### [facility] [address] Potassium [Moles/Vol] 3.3 mmol/L Low 3.5-5.1 [facility] Comment on above: Performed By: #### C BC, ETOH, CMP #### [facility] [address] Protein [Mass/Vol] 7.4 g/dL Normal 6.4-8.9 [facility] Comment on above: Performed By: #### C BC, ETOH, CMP #### [facility] [address] [place] [address] [place] Sodium [Moles/Vol] 139 mmol/L Normal 136-145 [facility] Comment on above: Performed By: #### C BC, ETOH, CMP #### [facility] [address] Urea nitrogen [Mass/Vol] 10 mg/dL Normal 7-25 [facility] Comment on above: Performed By: #### C BC, ETOH, CMP #### [facility] [address] [place] [address] Creatinine [Mass/volume] in Serum or PlasmaOrdered By: Ephraim Santoyo on 10-14-2022 Creatinine [Mass/Vol] 0.74 mg/dL 0.60-1.20 [facility] Dipstick and Microscopicon 0 10-14-2022 Appearance (U) Cloudy Critically abnormal Clear [facility] Comment on above: Order Comment: Name Collection Type:: Clean-Voided Midstream Performed By: #### A DDONUAPLUS, UHCG, URDS, CUU #### [address] Bacteria,Urine 2+ High None Seen [facility] Comment on above: Order Comment: Name Collection Type:: Clean-Voided Midstream Performed By: #### A DDONUAPLUS, UHCG, URDS, CUU #### [address] Bilirubin,Urine Negative Normal Negative [facility] Comment on above: Order Comment: Name Collection Type:: Clean-Voided Midstream Performed By: #### A DDONUAPLUS, UHCG, URDS, CUU #### [facility] [address] [place] [address] Calcium Oxalate Crystals,Urine Rare Normal [facility] Comment on above: Order Comment: Name Collection Type:: Clean-Voided Midstream Performed By: #### A DDONUAPLUS, UHCG, URDS, CUU #### [facility] [address] [place] [address] Color (U) Yellow Normal Yellow [facility] Comment on above: Order Comment: Name Collection Type:: Clean-Voided Midstream Performed By: #### A DDONUAPLUS, UHCG, URDS, CUU #### [address] Glucose Ql (U) Normal Normal Normal [facility] Comment on above: Order Comment: Name Collection Type:: Clean-Voided Midstream Performed By: #### A DDONUAPLUS, UHCG, URDS, CUU #### [address] [place] [address] [place] Hyaline Casts,Urine 0-1 Normal 0-1 [facility] Comment on above: Order Comment: Name Collection Type:: Clean-Voided Midstream Performed By: #### A DDONUAPLUS, UHCG, URDS, CUU #### [facility] [address] Ketones Ql (U) Trace High Negative [facility] Comment on above: Order Comment: Name Collection Type:: Clean-Voided Midstream Performed By: #### A DDONUAPLUS, UHCG, URDS, CUU #### [facility] [address] [place] [address] Leukocyte esterase Test strip Ql (U) 3+ High Negative [facility] Comment on above: Order Comment: Name Collection Type:: Clean-Voided Midstream Performed By: #### A DDONUAPLUS, UHCG, URDS, CUU #### [facility] [address] [place] [address] Mucus,Urine 1+ Critically abnormal [facility] Comment on above: Order Comment: Name Collection Type:: Clean-Voided Midstream Performed By: #### A DDONUAPLUS, UHCG, URDS, CUU #### [facility] [address] [place] [address] [place] Nitrite,Urine Negative Normal Negative [facility] Comment on above: Order Comment: Name Collection Type:: Clean-Voided Midstream Performed By: #### A DDONUAPLUS, UHCG, URDS, CUU #### [facility] [address] [place] [address] [place] Occult Blood,Urine Negative Normal Negative [facility] Comment on above: Order Comment: Name Collection Type:: Clean-Voided Midstream Performed By: #### A DDONUAPLUS, UHCG, URDS, CUU #### [facility] [address] [place] [address] Other Casts,Urine None Seen Normal None Seen [facility] Comment on above: Order Comment: Name Collection Type:: Clean-Voided Midstream Performed By: #### A DDONUAPLUS, UHCG, URDS, CUU #### [address] pH (U) 5.5 [pH] Normal 5.0-9.0 [facility] Comment on above: Order Comment: Name Collection Type:: Clean-Voided Midstream Performed By: #### A DDONUAPLUS, UHCG, URDS, CUU #### [address] Protein,Urine Negative Normal Negative [facility] Comment on above: Order Comment: Name Collection Type:: Clean-Voided Midstream Performed By: #### A DDONUAPLUS, UHCG, URDS, CUU #### [address] RBC,Urine 10-19 High 0-4 [facility] Comment on above: Order Comment: Name Collection Type:: Clean-Voided Midstream Performed By: #### A DDONUAPLUS, UHCG, URDS, CUU #### [address] Specificy [place],Urine 1.024 Normal 1.001-1.030 [facility] Comment on above: Order Comment: Name Collection Type:: Clean-Voided Midstream Performed By: #### A DDONUAPLUS, UHCG, URDS, CUU #### [address] Squamous Epithelial Cell,Urine 5-9 High 0-2 [facility] Comment on above: Order Comment: Name Collection Type:: Clean-Voided Midstream Performed By: #### A DDONUAPLUS, UHCG, URDS, CUU #### [address] Urobilinogen,Urine Normal Normal Normal [facility] Comment on above: Order Comment: Name Collection Type:: Clean-Voided Midstream Performed By: #### A DDONUAPLUS, UHCG, URDS, CUU #### [address] WBC,Urine 20-49 High 0-4 [facility] Comment on above: Order Comment: Name Collection Type:: Clean-Voided Midstream Performed By: #### A DDONUAPLUS, UHCG, URDS, CUU #### [address] Drug Screen,Urineon 10-15-19 Amphetamine Screen,Urine Negative Normal Negative [facility] Comment on above: Performed By: #### A DDONUAPLUS, UHCG, URDS, CUU #### [address] Barbiturate Screen,Urine Negative Normal Negative [facility] Comment on above: Performed By: #### A DDONUAPLUS, UHCG, URDS, CUU #### [address] Benzodiazepines Screen,Urine Negative Normal Negative [facility] Comment on above: Performed By: #### A DDONUAPLUS, UHCG, URDS, CUU #### [address] Cannabinoid Screen,Urine Positive High Negative [facility] Comment on above: Result Comment: Thes e are unconfirmed results and should not be used for legal purposes. Drug Cut-Off Concentration: AMPH 1000 ng/mL RYANN 200 ng/mL ANGELINE 200 ng/mL COCM 300 ng/mL OP 300 ng/mL PCP 25 ng/mL THC 20 ng/mL PERFORMED BY: [place] [address] PATHOLOGIST JANITORIAL ASSISTANT SHANICE SOLORZANO M.D. Performed By: #### A DDONUAPLUS, UHCG, URDS, CUU #### [address] Cocaine Screen,Urine Negative Normal Negative [facility] Comment on above: Performed By: #### A DDONUAPLUS, UHCG, URDS, CUU #### [address] Opiate Screen,Urine Negative Normal Negative [facility] Comment on above: Performed By: #### A DDONUAPLUS, UHCG, URDS, CUU #### [facility] [address] [place] [id number] [place] Phencyclidine Screen,Urine Negative Normal Negative [facility] Comment on above: Performed By: #### A DDONUAPLUS, UHCG, URDS, CUU #### [facility] [address] [place] [id number] [facility] ECG 12 lead ECGon 10-14-2022 ECG 12 lead ECG [facility] [place] [address] [place] [address] Electrocardiograph Report Signed Patient: Deirdre Iyer MR#: [id number] : 2000 Acct:[id number] Age/Sex: 22 / F ADM Date: 10/14/22 Loc: Room: [address] [place] [address] Type: ADM IN Attending Dr: Abdulkadir Maradiaga [...] By Frankie Rasheed DO 10/15 0631 Normal [facility] Eosinophils Auto (Bld) [#/Vo l]Ordered By: Ephraim Santoyo on 10-14-2022 Eosinophils (Bld) [#/Vol] 0.1 10*3/uL 0.0-0.45 [facility] Eosinophils/100 WBC Auto (Bl d)Ordered By: Ephraim Santoyo on 10-14-2022 Eosinophils/100 WBC (Bld) 1.8 % . [facility] Erythrocyte distribution wid th Auto (RBC) [Ratio]Ordered By: Ephraim Santoyo on 10-14-2022 Erythrocyte distribution width (RBC) [Ratio] 12.7 % 11.9-15.3 [facility] Ethanol [Mass/volume] in Ser um or PlasmaOrdered By: Ephraim Santoyo on 10-14-2022 Ethanol [Mass/Vol] mg/dL [facility] Ethanol [Mass/Vol] TNP [facility] Comment on above: Test not performed Ethyl Alcohol Profileon Ethanol [Mass/Vol] mg/dL Normal [facility] Comment on above: Performed By: #### C BC, ETOH, CMP #### [facility] [address] Percent Ethanol Not performed Normal [facility] Comment on above: Result Comment: PERF ORMED BY: [address] [place] [address] PATHOLOGIST JANITORIAL ASSISTANT SHANICE SOLORZANO M.D. Performed By: #### C BC, ETOH, CMP #### [facility] [address] Globulin Calc (S) [Mass/Vol] Ordered By: Ephraim Santoyo on 10-14-2022 Globulin (S) [Mass/Vol] 2.9 g/dL [facility] Glucose [Mass/volume] in Ser um or PlasmaOrdered By: Ephraim Santoyo on 10-14-2022 Glucose [Mass/Vol] 111 mg/dL 70-100 [facility] Comment on above: ADA recommended refe rence rangeRandom Glucose Reference Range is dependent on time and content of last meal. Glucose of more than 200 mg/dL in a nonstressed, ambulatory subject supports the diagnosis of Diabetes Mellitus. HCG ( test) Sherice weeks Ql (U)Ordered By: Ephraim Santoyo on 10-14-2022 HCG ( test) Ql (U) Negative [facility] HCG,Urineon 10-14-2022 Beta HCG ( test) Ql (U) Negative Normal [facility] Comment on above: Order Comment: Name Collection Type:: Clean-Voided Midstream Result Comment: PERF ORMED BY: [place] [address] PATHOLOGIST JANITORIAL ASSISTANT SHANICE SOLORZANO M.D. Performed By: #### A DDNIELSUABARTOLOME, UHCG, URDS, CUU #### [facility] [address] Hematocrit Auto (Bld) [Volum e fraction]Ordered By: Ephraim Santoyo on 10-14-2022 Hematocrit (Bld) [Volume fraction] 37.9 % 34.0-46.4 [facility] Hemoglobin [Mass/volume] in BloodOrdered By: Ephraim Santoyo on 10-14-2022 Hemoglobin (Bld) [Mass/Vol] 12.8 g/dL 11.8-15.4 [facility] Ketones Auto test strip (U) [Mass/Vol]Ordered By: Ephraim Santoyo on 10-14-2022 Ketones (U) [Mass/Vol] Trace Negative [facility] Leukocytes [#/volume] correc brianna for nucleated erythrocytes in Blood by Automated counOrdered By: Ephraim Santoyo on 10-14-2022 WBC corrected for nucl RBC Auto (Bld) [#/Vol] 6.8 10*3/uL 3.8-11.6 [facility] Lipid Panelon 10-14-2022 Cholesterol [Mass/Vol] 188 mg/dL Normal 140-200 [facility] Comment on above: Order Comment: Comme nt use ER blood Result Comment: Chol less than 200 mg/dl low risk Chol 201-239 mg/dl borderline risk Chol 240 mg/dl and greater high risk Performed By: #### L IPID, [id number], TSH3 wRFLX #### [facility] [address] [place] [address] Cholesterol in HDL [Mass/Vol] 44 mg/dL Normal 23-92 [facility] Comment on above: Order Comment: Comme nt use ER blood Result Comment: HDL CHOL ATP-III CLASSIFICATION Cardiovascular Risk HDL > or equal to 60 mg/dL LOW HDL < 40 mg/dL HIGH Performed By: #### L IPID, [id number], TSH3 wRFLX #### [facility] [address] Cholesterol.total/Chol esterol in HDL [Mass ratio] 4.3 {ratio} Normal <5.0 [facility] Comment on above: Order Comment: Comme nt use ER blood Performed By: #### L IPID, [id number], TSH3 wRFLX #### [facility] [address] LDL Cholesterol,Calculated 131 mg/dL High 0-100 [facility] Comment on above: Order Comment: Comme nt use ER blood Result Comment: LDL ATP III CLASSIFICATION LDL less than 100 mg/dL Optimal LDL 100-129 mg/dL Near or above optimal LDL 130-159 mg/dL Borderline high LDL 160-189 mg/dL High LDL greater than 189 mg/dL Very high Performed By: #### L IPID, [id number], TSH3 wRFLX #### [facility] [address] [place] [address] Triglyceride w/Reflex 64 mg/dL Normal 0-149 [facility] Comment on above: Order Comment: Comme nt use ER blood Result Comment: TRIG ATP III CLASSIFICATION TRIG less than 150 mg/dL Normal TRIG 150-199 mg/dL Borderline high TRIG 200-500 mg/dL High TRIG greater than 500 mg/dL Very high Standard traceable to the Center for Disease Conrtrol and Prevention (CDC) test method. Performed By: #### L IPID, [id number], TSH3 wRFLX #### [facility] [address] [place] [address] VLDL CHOLESTEROL 12 mg/dL Normal [facility] Comment on above: Order Comment: Comme nt use ER blood Performed By: #### L IPID, [id number], TSH3 wRFLX #### [facility] [address] [place] [address] [place] Lymphocytes Auto (Bld) [#/Vo l]Ordered By: Ephraim Santoyo on 10-14-2022 Lymphocytes (Bld) [#/Vol] 2.3 10*3/uL 1.00-4.8 [facility] Lymphocytes/100 WBC Auto (Bl d)Ordered By: Ephraim Santoyo on 10-14-2022 Lymphocytes/100 WBC (Bld) 33.4 % . [facility] MCH Auto (RBC) [Entitic mass ]Ordered By: Ephraim Santoyo on 10-14-2022 MCH (RBC) [Entitic mass] 31.2 pg 24.7-34.3 [facility] MCHC Auto (RBC) [Mass/Vol]Or dered By: Ephraim Santoyo on 10-14-2022 MCHC (RBC) [Mass/Vol] 33.9 g/dL 32.0-35.0 [facility] MCV Auto (RBC) [Entitic vol] Ordered By: Ephraim Santoyo on 10-14-2022 MCV (RBC) [Entitic vol] 92.0 fL 80-100 [facility] Monocyte distribution width [Entitic volume] in Blood by AutomatedOrdered By: Ephraim Santoyo on 10-14-2022 Monocyte distribution width Auto (Bld) [Entitic vol] 17.09 % 0.00-20.00 [facility] Monocytes Auto (Bld) [#/Vol] Ordered By: Ephraim Santoyo on 10-14-2022 Monocytes (Bld) [#/Vol] 0.5 10*3/uL 0.0-0.8 [facility] Monocytes/100 WBC Auto (Bld) Ordered By: Ephraim Santoyo on 10-14-2022 Monocytes/100 WBC (Bld) 8.0 % . [facility] Mucus LM Ql (Urine sed)Order ed By: Ephraim Santoyo on 10-14-2022 Mucus Ql (Urine sed) 1+ [LPF] [facility] Neutrophils Auto (Bld) [#/Vo l]Ordered By: Ephraim Santoyo on 10-14-2022 Neutrophils (Bld) [#/Vol] 3.8 10*3/uL 1.8-7.7 [facility] Neutrophils/100 WBC Auto (Bl d)Ordered By: Ephraim Santoyo on 10-14-2022 Neutrophils/100 WBC (Bld) 56.0 % . [facility] Nitrite Test strip Ql (U)Ord ered By: Ephraim Santoyo on 10-14-2022 Nitrite Ql (U) Negative Negative [facility] No Panel InformationOrdered By: Ephraim Santoyo on 10-14-2022 Estimated GFR (CKD-EPI) > 60.0 mL/Min [facility] Creatinine Clearance (Chem 100.71 [facility] Nucleated erythrocytes [Pres ence] in Blood by Automated countOrdered By: Ephraim Santoyo on 10-14-2022 Nucleated RBC Auto Ql (Bld) 0.1 /100{WBC} 0-0.5 [facility] Opiates [Presence] in Urine by Screen methodOrdered By: Ephraim Santoyo on 10-14-2022 Opiates Screen Ql (U) Negative Negative [facility] Phencyclidine Screen Ql (U)O rdered By: Ephraim Santoyo on 10-14-2022 Phencyclidine Ql (U) Negative Negative [facility] Platelet mean volume Auto (B ld) [Entitic vol]Ordered By: pEhraim Santoyo on 10-14-2022 Platelet mean volume (Bld) [Entitic vol] 8.1 fL 6.3-10.7 [facility] Platelets Auto (Bld) [#/Vol] Ordered By: Ephraim Santoyo on 10-14-2022 Platelets (Bld) [#/Vol] 291 10*3/uL 150-450 [facility] Potassium [Moles/volume] in Serum or PlasmaOrdered By: Ephraim Santoyo on 10-14-2022 Potassium [Moles/Vol] 3.3 mmol/L 3.5-5.1 [facility] Protein Auto test strip (U) [Mass/Vol]Ordered By: Ephraim Santoyo on 10-14-2022 Protein (U) [Mass/Vol] Negative Negative [facility] Protein [Mass/volume] in Ser um or PlasmaOrdered By: Ephraim Santoyo on 10-14-2022 Protein [Mass/Vol] 7.4 g/dL 6.4-8.9 [facility] RBC Auto (Bld) [#/Vol]Ordere d By: Ephraim Santoyo on 10-14-2022 RBC (Bld) [#/Vol] 4.12 10*6/uL 3.60-5.00 [facility] Serum or plasma albumin/glob ulin mass ratioOrdered By: Ephraim Santoyo on 10-14-2022 Albumin/Globulin [Mass ratio] 1.6 {ratio} [facility] Serum or plasma anion gap de terminationOrdered By: Ephraim Santoyo on 10-14-2022 Anion gap [Moles/Vol] 12.1 mmol/L 6.0-15.0 [facility] Serum or plasma high density lipoprotein (HDL) cholesterol measurementOrdered By: Javi Maradiaga on 10-14-2022 Cholesterol in HDL [Mass/Vol] 44 mg/dL 23-92 [facility] Comment on above: HDL CHOL ATP-III CLA SSIFICATION Cardiovascular RiskHDL > or equal to 60 mg/dL LOWHDL < 40 mg/dL HIGH Serum or plasma total choles terol/high density lipoprotein (HDL) cholesterol mass ratOrdered By: Javi Maradiaga on 10-14-2022 Cholesterol.total/Chol esterol in HDL [Mass ratio] 4.3 {ratio} <5.0 [facility] Sodium [Moles/volume] in Ser um or PlasmaOrdered By: Ephraim Santoyo on 10-14-2022 Sodium [Moles/Vol] 139 mmol/L 136-145 [facility] Specific gravity Auto test s trip (U) [Rel density]Ordered By: Ephraim Santoyo on 10-14-2022 Specific gravity (U) [Rel density] 1.024 1.001-1.030 [facility] Squamous epithelial cells de tection in urine sediment by light microscopyOrdered By: Ephraim Santoyo on 10-14-2022 Epithelial cells.squamous LM Ql (Urine sed) 5-9 [HPF] 0-2 [facility] Thyroid Stim Hormone w/Rflxo n 10-14-2022 Thyroid Stim Hormone w/Rflx 2.43 u[iU]/mL Normal 0.45-5.33 [facility] Comment on above: Order Comment: Comme nt use ER blood Performed By: #### L IPID, [id number], TSH3 wRFLX #### [facility] [address] Thyrotropin [Units/volume] i n Serum or PlasmaOrdered By: Javi Maradiaga on 10-14-2022 TSH Qn 2.43 m[IU]/L 0.45-5.33 [facility] Triglyceride [Mass/volume] i n Serum or PlasmaOrdered By: Javi Maradiaga on 10-14-2022 Triglyceride [Mass/Vol] 64 mg/dL 0-149 [facility] Comment on above: TRIG ATP III CLASSIF ICATIONTRIG less than 150 mg/dL NormalTRIG 150-199 mg/dL Borderline highTRIG 200-500 mg/dL High TRIG greater than 500 mg/dL Very highStandard traceable to the Center for Disease Conrtrol and Prevention (CDC) test method. Urea nitrogen [Mass/volume] in Serum or PlasmaOrdered By: Ephraim Santoyo on 10-14-2022 Urea nitrogen [Mass/Vol] 10 mg/dL 7- [facility] Urine Cultureon 10-14-2022 Bacteria identified Cx Nom (U) No Growth 2 Days PERFORMED BY: [place] [address] PATHOLOGIST JANITORIAL ASSISTANT SHANICE SOLORZANO M.D. [facility] Comment on above: Performed By: #### A DDONUAPLUS, UHCG, URDS, CUU #### [address] Urine bacteria detection by automated methodOrdered By: Ephraim Santoyo on 10-14-2022 Bacteria Auto Ql (U) 2+ None Seen [facility] Urine clarity by refractomet ry automatedOrdered By: Ephraim Santoyo on 10-14-2022 Clarity Refractometry automated (U) Cloudy Clear [facility] Urine culture routineOrdered By: Ephraim Santoyo on 10-14-2022 Bacteria identified Cx Nom (U) No Growth 2 Days [facility] Urine glucose measurement by automated test strip (mass/volume)Ordered By: Ephraim Santoyo on 10-14-2022 Glucose Auto test strip (U) [Mass/Vol] Normal mg/dL Normal [facility] Urine hemoglobin detection b y automated test stripOrdered By: Ephraim Santoyo on 10-14-2022 Hemoglobin Auto test strip Ql (U) Negative Negative [facility] Urine leukocyte esterase det ection by automated test stripOrdered By: Ephraim Santoyo on 10-14-2022 Leukocyte esterase Auto test strip Ql (U) 3+ Negative [facility] Urobilinogen Auto test strip (U) [Mass/Vol]Ordered By: Ephraim Santoyo on 10-14-2022 Urobilinogen (U) [Mass/Vol] Normal mg/dL Normal [facility] Vitamin D 25 Hydroxy Totalon 10-14-2022 Vitamin D 25 Hydroxy Total 27.6 ng/mL Low 30-100 [facility] Comment on above: Order Comment: Comme nt use ER blood Result Comment: MACKENZIE MIN D STATUS 25(OH)VITAMIN D RANGE (ng/mL) Deficient <20 Insufficient 20 to <30 Sufficient 30 to 100 Reference: Jerry Goodwin, Miguelina MCDANIEL, et al. Evaluation,treatment, and prevention of vitamin D deficiency; an Endocrine Society clinical practice guideline. JCEM. 2010; 96(7):1911-30. PERFORMED BY: [facility] [address] [place] [address] PATHOLOGIST JANITORIAL ASSISTANT SHANICE SOLORZANO M.D. Performed By: #### L IPID, [id number], TSH3 wRFLX #### [facility] [address] Vitamin D+Metabolites [Mass/ volume] in Serum or PlasmaOrdered By: Javi Maradiaga on 10-14-2022 Vitamin D+Metabolites [Mass/Vol] 27.6 ng/mL 30-100 [facility] Comment on above: VITAMIN D STATUS 25( [place])VITAMIN D RANGE (ng/mL) Deficient <20 Insufficient 20 to <30Sufficient 30 to 100Reference: Jerry Goodwin, Miguelina MCDANIEL, et al. Evaluation,treatment, and prevention of vitamin D deficiency; an Endocrine Society clinical practice guideline. JCEM. 2010; 96(7):1911-30. WBC Auto (Bld) [#/Vol]Ordere d By: Ephraim Santoyo on 10-14-2022 WBC (Bld) [#/Vol] 6.8 10*3/uL 3.8-11.6 [facility] pH Auto test strip (U)Ordere d By: Ephraim Santoyo on 10-14-2022 pH (U) 5.5 [pH] 5.0-9.0 [facility] C.trachomatis N.gonorrhoeae DNA ,Urineon 08-20-2021 Chlamydia trachomatis DNA, Urine Negative Normal Negative [facility] Neisseria gonorrhoeae DNA, Urine Negative Normal Negative [facility] , Urineon 2 Beta HCG ( test) Ql (U) Negative Detects HCG level >20 MIU/mL [facility] UR HCG Qualitativeon 022 Beta HCG ( test) Ql (U) Negative Normal Detects HC [facility] Comment on above: Performed By: #### U HCG #### [facility] [address] [place] [address] Urinalysis with Reflex to Cu ltureon 08-14-2021 Bilirubin Urine Negative Negative [facility] Blood, Urine Negative Negative [facility] Clarity, UA Clear Clear [facility] Color, UA Yellow Straw/Yello w [facility] Glucose, Ur Negative Negative mg/dL [facility] Ketones Ql (U) Negative Negative mg/dL [facility] Leukocyte esterase Test strip Ql (U) Negative Negative [facility] Nitrite, Urine Negative Negative [facility] pH, UA 6.5 [facility] Protein, UA Negative Negative mg/dL [facility] Specific [place], UA >=1.030 [facility] Urine Reflex to Culture Not Indicated [facility] Urobilinogen, Urine 0.2 <2.0 E.U./dL [facility] Urinalysis, reflex to cultur [place] 08-14-2021 Bilirubin Ql (U) Negative Normal Negative [facility] Comment on above: Performed By: #### U AR #### [facility] [address] [place] [address] Clarity (U) Clear Normal Clear [facility] Comment on above: Performed By: #### U AR #### [facility] [address] [place] [address] Color (U) Yellow Normal Straw/[place] [facility] Comment on above: Performed By: #### U AR #### [facility] [address] [place] [address] Glucose Ql (U) Negative Normal Negative [facility] Comment on above: Performed By: #### U AR #### [facility] [address] [place] [address] Hemoglobin Ql (U) Negative Normal Negative [facility] Comment on above: Performed By: #### U AR #### [facility] [address] [place] [address] Ketones Ql (U) Negative Normal Negative [facility] Comment on above: Performed By: #### U AR #### [facility] [address] [place] [address] Leukocyte esterase Test strip Ql (U) Negative Normal Negative [facility] Comment on above: Performed By: #### U AR #### [facility] [address] [place] [address] Nitrite Ql (U) Negative Normal Negative [facility] Comment on above: Performed By: #### U AR #### [facility] [address] [place] [address] pH (U) 6.5 [pH] Normal 5.0-9.0 [facility] Comment on above: Performed By: #### U AR #### [facility] [address] [place] [address] Protein Ql (U) Negative Normal Negative [facility] Comment on above: Performed By: #### U AR #### [facility] [address] [place] [address] Specific gravity (U) [Rel density] >=1.030 Normal 1.005-1.03 [facility] Comment on above: Performed By: #### U AR #### [facility] [address] [place] [address] Urine Reflexed to Culture Not Indicated Normal [facility] Comment on above: Performed By: #### U AR #### [facility] [address] [place] [address] Urobilinogen Qn (U) 0.2 {Morgan'U}/dL Normal < 2.0 [facility] Comment on above: Performed By: #### U AR #### [facility] [address] [place] [id number] CHLAMYDIA/GONOCOCCUS NADEEM (SW AB/URINE/PAPon 01-17-2021 Chlamydia trachomatis, NADEEM Negative Normal Negative [facility] Comment on above: Performed By: #### C T/NGNA #### [facility] [address] [place] [address] Dr. Sapna Khan Neisseria gonorrhoeae, NADEEM Negative Normal Negative [facility] Comment on above: Performed By: #### C T/NGNA #### [facility] [address] [place] [address] Dr. Sapna Khan VAGINITIS/VAGINOSIS DNA PROB [place] 01-17-2021 Abby species Negative Normal Negative [facility] Comment on above: Performed By: #### V AGINT #### [facility] [address] [place] [address] Dr. Sapna Khan Gardnerella vaginalis Positive Abnormal Negative [facility] Comment on above: Performed By: #### V AGINT #### [facility] [address] [place] [address] Dr. Sapna Khan Trichomonas vaginalis Negative Normal Negative [facility] Comment on above: Performed By: #### V AGINT #### [facility] [address] [place] [address] Dr. Sapna Khan CHLAMYDIA/GONOCOCCUS NADEEM (SW AB/URINE/PAPon 05-06-2020 Chlamydia trachomatis, NADEEM Negative Normal Negative [facility] Comment on above: Performed By: #### C T/NGNA #### [facility] [address] [place] [address] Loyda Garcia Neisseria gonorrhoeae, NADEEM Negative Normal Negative [facility] Comment on above: Performed By: #### C T/NGNA #### [facility] [address] [place] [address] Loyda Garcia VAGINITIS/VAGINOSIS DNA PROB [place] 05-03-2020 Abby species Positive Abnormal Negative [facility] Comment on above: Performed By: #### V AGINT #### [facility] [address] [place], [place] [address] Loyda Garcia Gardnerella vaginalis Positive Abnormal Negative [facility] Comment on above: Performed By: #### V AGINT #### [facility] [address] [place], [place] [address] Loyda Garcia Trichomonas vaginalis Negative Normal Negative [facility] Comment on above: Performed By: #### V AGINT #### [facility] [address] [place], [place] [address] Loyda Garcia BASIC METABOLIC PANELon - Anion gap [Moles/Vol] 17 mmol/L Normal 10 - 20 [facility] Comment on above: Performed By: #### B MP #### [address] [address] Calcium [Mass/Vol] 9.2 mg/dL Normal 8.6 - 10.3 [facility] Comment on above: Performed By: #### B MP #### [address] [address] Chloride [Moles/Vol] 104 mmol/L Normal 98 - 107 [facility] Comment on above: Performed By: #### B MP #### [address] [address] Creatinine [Mass/Vol] 0.53 mg/dL Normal 0.50 - 1.05 [facility] Comment on above: Performed By: #### B MP #### [address] [address] GFR- AM. >60 Normal >60 [facility] Comment on above: Result Comment: CALC ULATIONS OF ESTIMATED GFR ARE PERFORMED USING THE MDRD STUDY EQUATION FOR THE IDMS-TRACEABLE CREATININE METHODS. CLIN CHEM 2007;53:766-72 Performed By: #### B MP #### [address] [address] GFR-NON AM. >60 Normal >60 [facility] Comment on above: Performed By: #### B MP #### [address] [address] Glucose [Mass/Vol] 94 mg/dL Normal 74 - 99 [facility] Comment on above: Performed By: #### B MP #### [address] [address] HCO3 (Bld) [Moles/Vol] 20 mmol/L Low 21 - 32 [facility] Comment on above: Performed By: #### B MP #### [address] [address] Potassium [Moles/Vol] 3.2 mmol/L Low 3.5 - 5.3 [facility] Comment on above: Performed By: #### B MP #### [address] [address] Sodium [Moles/Vol] 138 mmol/L Normal 136 - 145 [facility] Comment on above: Performed By: #### B MP #### [address] [address] Urea nitrogen [Mass/Vol] 5 mg/dL Low 6 - 23 [facility] Comment on above: Performed By: #### B MP #### [address] [address] CBC AND DIFFERENTIALon 05-17 % AUTOMATED IMMATURE GRAN 0.6 % Normal 0.0 - 0.9 [facility] Comment on above: Result Comment: Dania ture Granulocyte Count (IG) includes promyelocytes, myelocytes and metamyelocytes but does not include bands. Percent differential counts (%) should be interpreted in the context of the absolute cell counts (cells/L). Performed By: #### C BCDF #### [address] [address] Basophils (Bld) [#/Vol] 0.03 10*3/uL Normal 0.00 - 0.10 [facility] Comment on above: Performed By: #### C BCDF #### [address] [address] Basophils/100 WBC (Bld) 0.2 % Normal 0.0 - 2.0 [facility] Comment on above: Performed By: #### C BCDF #### [address] [address] Eosinophils (Bld) [#/Vol] 0.07 10*3/uL Normal 0.00 - 0.70 [facility] Comment on above: Performed By: #### C BCDF #### [address] [address] Eosinophils/100 WBC (Bld) 0.6 % Normal 0.0 - 6.0 [facility] Comment on above: Performed By: #### C BCDF #### [address] [address] Erythrocyte distribution width (RBC) [Ratio] 12.7 % Normal 11.5 - 14.5 [facility] Comment on above: Performed By: #### C BCDF #### [address] [address] Hematocrit (Bld) [Volume fraction] 35.5 % Low 36.0 - 46.0 [facility] Comment on above: Performed By: #### C BCDF #### [address] [address] Hemoglobin (Bld) [Mass/Vol] 12.0 g/dL Normal 12.0 - 16.0 [facility] Comment on above: Performed By: #### C BCDF #### [address] [address] Lymphocytes (Bld) [#/Vol] 1.99 10*3/uL Normal 1.20 - 4.80 [facility] Comment on above: Performed By: #### C BCDF #### [address] [address] Lymphocytes/100 WBC (Bld) 16.1 % Normal 13.0 - 44.0 [facility] Comment on above: Performed By: #### C BCDF #### [address] [address] MCHC (RBC) [Mass/Vol] 33.8 g/dL Normal 32.0 - 36.0 [facility] Comment on above: Performed By: #### C BCDF #### [address] [address] MCV (RBC) [Entitic vol] 92 fL Normal 80 - 100 [facility] Comment on above: Performed By: #### C BCDF #### [address] [address] Monocytes (Bld) [#/Vol] 0.80 10*3/uL Normal 0.10 - 1.00 [facility] Comment on above: Performed By: #### C BCDF #### [address] [address] Monocytes/100 WBC (Bld) 6.5 % Normal 2.0 - 10.0 [facility] Comment on above: Performed By: #### C BCDF #### [address] [address] Neutrophils (Bld) [#/Vol] 9.37 10*3/uL High 1.20 - 7.70 [facility] Comment on above: Performed By: #### C BCDF #### [address] [address] Neutrophils/100 WBC (Bld) 76.0 % Normal 40.0 - 80.0 [facility] Comment on above: Performed By: #### C BCDF #### [address] [address] Platelets (Bld) [#/Vol] 259 10*3/uL Normal 150 - 450 [facility] Comment on above: Performed By: #### C BCDF #### [address] [address] RBC (Bld) [#/Vol] 3.85 x10E12/L Low 4.00 - 5.20 [facility] Comment on above: Performed By: #### C BCDF #### [address] [address] WBC (Bld) [#/Vol] 12.3 10*3/uL High 4.4 - 11.3 [facility] Comment on above: Performed By: #### C BCDF #### [address] [address] HCG,BETA-QUANTon 05-18-2019 HCG,BETA-QUANT [address] mIU/mL Abnormal [facility] Comment on above: Result Comment: Low- level [...] HCG measurement is performed using the Tigist Fisher Access Immunoassay which detects intact HCG and free beta HCG subunit. This test is not indicated for use as a tumor marker. HCG testing is performed using a different test methodology at [facility] than other [facility]. Direct result comparison should only be made within the same method. REF VALUES NON FEMALE <5 MALES <5 Performed By: #### H CGQU #### [address] [address] INFLUENZA A + B PCRon 2019 INFLUENZA A, PCR NOT DETECTED Normal Not Detected [facility] Comment on above: Result Comment: Resp iratory virus testing is performed routinely by PCR for Influenza A/B and RSV. Not Detected results do not preclude Influenza A/B or RSV infections since the adequacy of sample collection or low viral burden may impact the clinical sensitivity of this test method. Performed By: #### I NFLP #### [address] [address] INFLUENZA B, PCR NOT DETECTED Normal Not Detected [facility] Comment on above: Result Comment: Resp iratory virus testing is performed routinely by PCR for Influenza A/B and RSV. Not Detected results do not preclude Influenza A/B or RSV infections since the adequacy of sample collection or low viral burden may impact the clinical sensitivity of this test method. Performed By: #### I NFLP #### [facility] [address] [place] [address] Lab Specimen Source Nasal, Nasopharyngeal Normal [facility] Comment on above: Performed By: #### I NFLP #### [facility] [address] [place] [address] Provider Note - ED v2on Provider Note [...] As Needed SIGNIFICANT EVENTS: No documented data. ENROLLMENT MANAGEMENT DIRECTOR: Is : yes(1) Is : no(1) REVIEW [...] the pain scale. I spoke to house ENROLLMENT MANAGEMENT DIRECTOR Dr. Macias, who states for heart tones [...] a critically ill patient: no Electronic Signatures: Mateo Vallejo (PAC) (Signed 18-May-2019 03:46) Authored: Provider Note - ED v2 Salvador Teresa) (Signed 19-May-2019 19:17) Authored: Provider Note - ED v2 Co-Signer: Provider Note - ED v2 Last Updated: 19-May-2019 19:17 by Salvador Teresa) References: 1. Data Referenced From Triage - ED 18-May-2019 01:55 Normal [facility] Risk Screen - Adult Emergenc yon 05-18-2019 Risk Screen - Adult Emergency Preferred Language: Preferred Language: Preferred Language for Discussing Health Care (patient/designee)Alma barraza Advanced Directives: Advance Directive/DNRno Family Violence Adult: [...] Learning Preferencesindividual instruction Cultural Considerationsnone Developmental Considerationsnone Methodist Considerationsnone Learning Assessment (Other Learner): Learning Assessment [...] an injured patient at a Trauma Center ([facility]/[place]): no Electronic Signatures: Diaz Flores (RN) (Signed 18-May-2019 02:09) Authored: Preferred Language, Advanced Directives, Family Violence Adult, Learning Assessment (Patient), Learning Assessment (Other Learner), Pressure Injury/TB/Substance, CAGE Last Updated: 18-May-2019 02:09 by Diaz Flores (RN) Normal [facility] Triage - EDon 05-18-2019 Triage - ED Quick Triage: Are You yes Are You Currently Breastfeedingno Chart Review: CHIEF COMPLAINT DEIRDRE IYER is a Female patient with a chief [...] BMI (kg/m2): 19.531 Calculated BSA (m2) 1.49 [place] Coma Scale: Best Eye Response: (E4) spontaneous Best Motor Response: (M6) obeys commands Best Verbal Response: (V5) oriented Wade Score: 15 Travel outside of [place]: no Allergies: no Patient has homicidal thoughts: [...] History Last Updated: 18-May-2019 02:08 by Diaz Flores (DOMINGA) Normal [facility] Triage - ED Quick Triage: The patient and/or guardian verbally acknowledges placement for services into the following (when Urgent Care Service hours are operating):emergency department Are You yes Have You Given In The Last 6 Weeksno Are You Currently Breastfeedingno Chart Review: CHIEF COMPLAINT DEIRDRE IYER is a Female patient with a chief [...] BMI (kg/m2): 19.531 Calculated BSA (m2) 1.49 Wade Coma Scale: Best Eye Response: (E4) spontaneous Best Motor Response: (M6) obeys commands Best Verbal Response: (V5) oriented Wade Score: 15 Allergies: no Patient has homicidal [...] 00:41 by Marlyn Barrios (STAFF N) Normal [facility] UA MICROSCOPICon 05-18-2019 AMORPHOUS CRYSTAL 1+ /HPF Normal [facility] Comment on above: Performed By: #### U AMIC #### [address] [address] BACTERIA 2+ /HPF Abnormal [facility] Comment on above: Performed By: #### U AMIC #### [address] [address] MUCUS 4+ /LPF Normal [facility] Comment on above: Performed By: #### U AMIC #### [address] [address] RBC 5 /HPF Normal 0-5 [facility] Comment on above: Performed By: #### U AMIC #### [address] [address] SQUAMOUS EPITH. CELLS 75 /HPF Normal [facility] Comment on above: Performed By: #### U AMIC #### [address] [address] WBC 52 /HPF Abnormal 0-5 [facility] Comment on above: Performed By: #### U AMIC #### [address] [address] URINALYSIS WITH CULTURE IF I NDICATEDon 05-18-2019 Appearance (U) HAZY Normal CLEAR [facility] Comment on above: Performed By: #### U ARFX #### [address] [address] Bilirubin (U) [Mass/Vol] Negative Normal NEGATIVE [facility] Comment on above: Performed By: #### U ARFX #### [address] [address] BLOOD Negative Normal NEGATIVE [facility] Comment on above: Performed By: #### U ARFX #### [address] [address] Color (U) YELLOW Normal STRAW,YELLO W [facility] Comment on above: Performed By: #### U ARFX #### [address] [address] Glucose [Mass/Vol] Negative Normal NEGATIVE [facility] Comment on above: Performed By: #### U ARFX #### [address] [address] Ketones Ql (U) 80 (2+) Abnormal NEGATIVE [facility] Comment on above: Performed By: #### U ARFX #### [address] [address] Leukocyte esterase Test strip Ql (U) Negative Normal NEGATIVE [facility] Comment on above: Performed By: #### U ARFX #### [address] [address] Nitrite Ql (U) Negative Normal NEGATIVE [facility] Comment on above: Performed By: #### U ARFX #### [address] [address] pH (Bld) 6.0 Normal 5.0 - 8.0 [facility] Comment on above: Performed By: #### U ARFX #### [address] [address] Protein (U) [Mass/Vol] 30 (1+) Abnormal NEGATIVE [facility] Comment on above: Performed By: #### U ARFX #### [address] [address] Specific gravity (U) [Rel density] 1.024 Normal 1.005 - 1.035 [facility] Comment on above: Performed By: #### U ARFX #### [address] [address] Urobilinogen Qn (U) 2.0 mg/dL High 0.0 - 1.9 [facility] Comment on above: Result Comment: Due to [...] urobilinogen. Performed By: #### U ARFX #### [address] [address] URINE CULTURE,BACTERIALon URINE CULTURE,BACTERIAL PATIENT: DEIRDRE IYER LOCATION: [facility]#: [id number] : 89 AGE: SEX: F ORDERED BY: MATEO VALLEJO SOURCE: URINE COLLECTED: 05/18/19 01:47 ANTIBIOTICS AT ROSS.: RECEIVED : 05/18/19 12:06 SITE: R E S U L T S URINE CULTURE,BACTERIAL FINAL 05/19/19 07:57 NO GROWTH Normal [facility] Comment on above: Performed By: #### U RINC #### [facility] [address] [place] [address] Vital Signs Date Time Vital Sign Value Performing Clinician Facility 04-05-2024 08:33-0500 Body mass index (BMI) [Ratio] 26.19 kg/m2 Surekha Apodaca RECYCLING COORDINATOR Work Phone: [facility] 04-05-2024 08:33-0500 Body weight 64.95 kg Surekha Apodaca RECYCLING COORDINATOR Work Phone: [facility] 04-05-2024 08:33-0500 Diastolic blood pressure 82 mm[Hg] Surekha Apodaca RECYCLING COORDINATOR Work Phone: [facility] 04-05-2024 08:33-0500 Systolic blood pressure 122 mm[Hg] Surekha Apodaca RECYCLING COORDINATOR Work Phone: [facility] 03-21-2024 09:52-0500 Body mass index (BMI) [Ratio] 26.34 kg/m2 Surekha Apodaca RECYCLING COORDINATOR Work Phone: [facility] 03-21-2024 09:52-0500 Body weight 65.32 kg Surekha Apodaca RECYCLING COORDINATOR Work Phone: [facility] 03-21-2024 09:52-0500 Diastolic blood pressure 72 mm[Hg] Surekha Apodaca RECYCLING COORDINATOR Work Phone: [facility] 03-21-2024 09:52-0500 Systolic blood pressure 120 mm[Hg] Surekha Apodaca RECYCLING COORDINATOR Work Phone: [facility] 02-08-2024 15:52-0500 Body mass index (BMI) [Ratio] 25.06 kg/m2 Surekha Apodaca RECYCLING COORDINATOR Work Phone: [facility] 02-08-2024 15:52-0500 Body weight 62.14 kg Surekha Apodaca RECYCLING COORDINATOR Work Phone: [facility] 02-08-2024 15:52-0500 Diastolic blood pressure 74 mm[Hg] Surekha Apodaca RECYCLING COORDINATOR Work Phone: [facility] 02-08-2024 15:52-0500 Systolic blood pressure 118 mm[Hg] Surekha Apodaca RECYCLING COORDINATOR Work Phone: [facility] 01-17-2024 10:15-0500 Body height 157.5 cm Surekha Apodaca RECYCLING COORDINATOR Work Phone: [facility] 10-23-2023 06:23-0400 Diastolic blood pressure 69 mm[Hg] Kaylinn Dokken [facility] 10-23-2023 06:23-0400 Heart rate 77 /min Kaylinn Dokken [facility] 10-23-2023 06:23-0400 Mean blood pressure 83 mm[Hg] Kaylinn Dokken [facility] 10-23-2023 06:23-0400 Respiratory rate 16 /min Kaylinn Dokken [facility] 10-23-2023 06:23-0400 SaO2% (BldA) [Mass fraction] 100 % Kaylinn Dokken [facility] 10-23-2023 06:23-0400 Systolic blood pressure 111 mm[Hg] Kaylinn Dokken [facility] 10-23-2023 05:42-0400 Heart rate 79 /min Kaylinn Dokken [facility] 10-23-2023 05:42-0400 Respiratory rate 18 /min Kaylinn Dokken [facility] 10-23-2023 05:42-0400 SaO2% (BldA) [Mass fraction] 100 % Kaylinn Dokken [facility] 10-23-2023 05:33-0400 Heart rate 89 /min Kaylinn Dokken [facility] 10-23-2023 05:33-0400 Respiratory rate 18 /min Kaylinn Dokken [facility] 10-23-2023 05:33-0400 SaO2% (BldA) [Mass fraction] 98 % Kaylinn Dokken [facility] 10-23-2023 05:16-0400 Body temperature 97.7 [degF] Kaylinn Dokken [facility] 10-23-2023 05:16-0400 Diastolic blood pressure 77 mm[Hg] Kaylinn Dokken [facility] 10-23-2023 05:16-0400 Heart rate 88 /min Kaylinn Dokken [facility] 10-23-2023 05:16-0400 Systolic blood pressure 121 mm[Hg] Kaylinn Dokken [facility] 09-12-2023 21:13-0400 Hourly Rounding Lee Ann Roldan [facility] Comment on above: Result Comment: Pt d/c'd to private vehi [place] via w/c with all belongings. Denies needs. 09-12-2023 20:15-0400 Hourly Rounding Lee Ann Roldan [facility] Comment on above: Result Comment: Pt up in room. Denies pa in and needs. Call light in reach. Will continue to monitor. 09-12-2023 19:15-0400 Blood Pressure Location Lee Ann Roldan [facility] 09-12-2023 19:15-0400 Body temperature 98.42 [degF] Lee Ann Roldan [facility] 09-12-2023 19:15-0400 Diastolic blood pressure 74 mm[Hg] Lee Ann Roldan [facility] 09-12-2023 19:15-0400 Heart rate 76 /min Lee Ann Roldan [facility] 09-12-2023 19:15-0400 Hourly Rounding Lee Annbreanne Roldan [facility] Comment on above: Result Comment: Pt sitting on couch. Sendy n of care discussed. Assessment complete. No c/o pain. No s/s of distress. Denies needs. Call light in reach. Will continue to monitor. 09-12-2023 19:15-0400 Mean blood pressure 88 mm[Hg] Lee Ann Roldan [facility] 09-12-2023 19:15-0400 Respiratory rate 18 /min Lee Ann Roldan [facility] 09-12-2023 19:15-0400 Systolic blood pressure 116 mm[Hg] Lee Ann Roldan [facility] 09-12-2023 14:30-0400 Heart rate 65 /min Lee Annbreanne Roldan [facility] 09-12-2023 14:30-0400 SaO2% (BldA) [Mass fraction] 99 % Lee Ann Nataprawira [facility] 09-12-2023 14:30-0400 Respiratory rate 18 /min Lee Ann Nataprawira [facility] 09-12-2023 14:30-0400 Blood Pressure Location Lee Ann Nataprawira [facility] 09-12-2023 14:30-0400 Body temperature 98.42 [degF] Lee Ann Nataprawira [facility] 09-12-2023 14:29-0400 Diastolic blood pressure 80 mm[Hg] Lee Ann Nataprawira [facility] 09-12-2023 14:29-0400 Mean blood pressure 94 mm[Hg] Lee Ann Nataprawira [facility] 09-12-2023 14:29-0400 Systolic blood pressure 121 mm[Hg] Lee Ann Nataprawira [facility] 09-12-2023 08:00-0400 Body temperature 97.88 [degF] Lee Ann Nataprawira [facility] 09-12-2023 08:00-0400 Diastolic blood pressure 67 mm[Hg] Lee Ann Nataprawira [facility] 09-12-2023 08:00-0400 Heart rate 75 /min Lee Ann Nataprawira [facility] 09-12-2023 08:00-0400 Mean blood pressure 81 mm[Hg] Lee Ann Nataprawira [facility] 09-12-2023 08:00-0400 SaO2% (BldA) [Mass fraction] 98 % Lee Ann Nataprawira [facility] 09-12-2023 08:00-0400 Systolic blood pressure 108 mm[Hg] Lee Ann Roldan [facility] 09-11-2023 20:25-0400 Body temperature 97.7 [degF] Lee Ann Roldan [facility] 09-11-2023 20:25-0400 Mean blood pressure 88 mm[Hg] Lee Ann Roldan [facility] 09-11-2023 20:25-0400 Mean blood pressure 88 mm[Hg] Lee Ann Roldan [facility] 09-11-2023 08:15-0400 SaO2% (BldA) [Mass fraction] 100 % Lee Ann Roldan [facility] 09-10-2023 22:30-0400 Hourly Rounding Lee Ann Roldan [facility] Comment on above: Result Comment: updated on POC after s p eaking to dr Nance. verb understanding and agrees to follow care with her in the next few days. provided all d/c instructions and pt and sig other both verb understanding. ambulates off unit without any distress noted. 09-10-2023 22:15-0400 Hourly Rounding Lee Ann Roldan [facility] 09-10-2023 21:30-0400 Hourly Rounding Lee Annbreanne Roldan [facility] Comment on above: Result Comment: pt questions staff what the balled up tight feeling is at the top of her stomach. staff nurse discesses contractions and had pt palpate the soft abdomen now vs the moderate firm abdomen/uterus approx 8-10 min ago. verb understanding. 09-10-2023 20:45-0400 Blood Pressure Location Lee Ann Roldan [facility] 09-10-2023 20:45-0400 Body temperature 98.24 [degF] Lee Ann Amadorawira [facility] 09-10-2023 20:45-0400 Diastolic blood pressure 79 mm[Hg] Lee Ann Nataprawira [facility] 09-10-2023 20:45-0400 Heart rate 90 /min Lee Ann Nataprawira [facility] 09-10-2023 20:45-0400 Mean blood pressure 99 mm[Hg] Lee Ann Nataprawira [facility] 09-10-2023 20:45-0400 Respiratory rate 18 /min Lee Ann Nataprawira [facility] 09-10-2023 20:45-0400 Systolic blood pressure 139 mm[Hg] Lee Ann Nataprawira [facility] 04-25-2023 07:16-0500 Body mass index (BMI) [Ratio] 21.8 kg/m2 [facility] Nurse [facility] 04-25-2023 07:16-0500 Body weight 57.61 kg [facility] Nurse [facility] 10-18-2022 19:01-0400 Body temperature 98.7 [degF] PHYSICIAN NO [facility] 10-18-2022 19:01-0400 Diastolic blood pressure 68 mm[Hg] PHYSICIAN NO [facility] 10-18-2022 19:01-0400 Heart rate 67 /min PHYSICIAN NO [facility] 10-18-2022 19:01-0400 Respiratory rate 18 /min PHYSICIAN NO [facility] 10-18-2022 19:01-0400 SaO2% (BldA) [Mass fraction] 98 % PHYSICIAN NO [facility] 10-18-2022 19:01-0400 Systolic blood pressure 115 mm[Hg] PHYSICIAN NO [facility] 10-18-2022 09:00-0400 Body weight 61.3 kg PHYSICIAN [facility] 10-14-2022 15:22-0400 Body height 157.48 cm PHYSICIAN NO [facility] 08-14-2021 17:22-0400 Body height 157.5 cm Manasa Roy MD Work Phone: [employer] 08-14-2021 17:22-0400 Body mass index (BMI) [Ratio] 22.86 kg/m2 Manasa Roy MD Work Phone: [employer] 08-14-2021 17:22-0400 Body temperature 98.71 [degF] Manasa Roy MD Work Phone: [employer] 08-14-2021 17:22-0400 Body weight 56.7 kg Manasa Roy MD Work Phone: [employer] 08-14-2021 17:22-0400 Diastolic blood pressure 63 mm[Hg] Manasa Roy MD Work Phone: [employer] 08-14-2021 17:22-0400 Heart rate 73 /min Manasa Roy MD Work Phone: [employer] 08-14-2021 17:22-0400 Respiratory rate 16 /min Manasa Roy MD Work Phone: [employer] 08-14-2021 17:22-0400 SaO2% (BldA) [Mass fraction] 100 % Manasa Roy MD Work Phone: [employer] 08-14-2021 17:22-0400 Systolic blood pressure 109 mm[Hg] Manasa Roy MD Work Phone: [employer] Encounters Encounter Date Encounter Type Care Provider Facility Start: 04-05-2024 End: 04-05-2024 Office outpatient visit 25 minutes Surekha Apodaca RECYCLING COORDINATOR Work Phone: [facility] Comment on above: related co ndition, second trimester (Primary Dx); 22 weeks gestation of ; Previous child with Down syndrome, antepartum Start: 04-05-2024 End: 04-05-2024 ambulatory SUREKHA APODACA Not Available Start: 03-21-2024 End: 03-21-2024 Bamboo flowsheet Surekha Apodaca RECYCLING COORDINATOR Work Phone: [facility] Start: 03-21-2024 End: 03-21-2024 Bamboo flowsheet Surekha Apodaca RECYCLING COORDINATOR Work Phone: [facility] Start: 03-21-2024 End: 03-21-2024 Office outpatient visit 25 minutes Surekha Apodaca RECYCLING COORDINATOR Work Phone: [facility] Comment on above: related co ndition, second trimester (Primary Dx); 19 weeks gestation of ; Previous child with Down syndrome, antepartum Start: 03-21-2024 End: 03-21-2024 ambulatory SUREKHA APOADCA Not Available Start: 02-15-2024 End: 02-16-2024 Telephone encounter Amanda Castellanos LPN [facility] Start: 02-08-2024 End: 02-08-2024 Patient encounter procedure Surekha APODACA [facility] Start: 02-08-2024 End: 02-08-2024 Office outpatient visit 25 minutes Surekha Apodaca RECYCLING COORDINATOR Work Phone: [facility] Comment on above: GA: 13w6d Start: 02-08-2024 End: 02-08-2024 ambulatory RIVAS APODACA Facility:[facility] Start: 02-08-2024 End: 02-08-2024 Bamboo flowsheet Surekha Apodaca RECYCLING COORDINATOR Work Phone: [facility] Start: 02-08-2024 End: 02-09-2024 Bamboo flowsheet Surekha Apodaca RECYCLING COORDINATOR Work Phone: [facility] Start: 02-08-2024 End: 02-09-2024 Clinisync Result Encounter Surekha Apodaca NP Work Phone: [facility] Unsolicited Start: 01-26-2024 End: 01-26-2024 Clinisync Result Encounter Surekha Apodaca NP Work Phone: [facility] Unsolicited Start: 01-26-2024 End: 01-26-2024 Clinisync Result Encounter Surekha Apodaca RECYCLING COORDINATOR Work Phone: [facility] Unsolicited Start: 01-26-2024 End: 01-26-2024 Patient encounter procedure Surekha APODACA [facility] Start: 01-26-2024 End: 01-26-2024 ambulatory WHNP Surekha APODACA Facility:[facility] Start: 01-17-2024 End: 01-17-2024 flow sheet Surekha Apodaca RECYCLING COORDINATOR Work Phone: [facility] Comment on above: GA: 8w6d Start: 01-17-2024 End: 01-17-2024 ambulatory SUREKHA APODACA Not Available Start: 10-23-2023 End: 10-23-2023 Emergency department patient visit Spencer Mcallister Dosergey [facility] Start: 09-11-2023 End: 09-12-2023 Evaluation and management of inpatient DO Lee Ann Roldan Facility:[facility] Start: 09-11-2023 End: 09-27-2023 Pre-admission assessment Lee Ann Roldan [facility] Start: 09-10-2023 End: 09-10-2023 ambulatory DO Lee Ann Roldan Facility:[facility] Start: 09-10-2023 End: 09-10-2023 OB Triage Lee Ann Roldan [facility] Start: 04-22-2023 End: 04-22-2023 ambulatory SUREKHA APODACA Not Available Start: 04-22-2023 End: 04-22-2023 Office outpatient visit 5 minutes [facility] Chao Nurse [facility] Comment on above: GA: 19w4d Start: 10-14-2022 ambulatory Javi Rainey acility:[facility] Start: 10-14-2022 End: 10-19-2022 Evaluation and management of inpatient Javi Maradiaga Facility:[facility] Start: 10-14-2022 End: 10-18-2022 Evaluation and management of inpatient PHYSICIAN RODDY [facility] Work Phone: Start: 08-14-2021 End: 08-14-2021 Emergency department patient visit MOHINI Pérez [facility] Start: 08-14-2021 End: 08-14-2021 Emergency department patient visit Manasa Roy MD Work Phone: [facility] ED Comment on above: Bacterial vaginosis (Primary Dx); Vaginal itching Start: 01-14-2021 End: 01-14-[address] FLAKITA MARTINO Facility:[facility] Start: 05-01-2020 End: 05-01-[address] DOCTOR CHRISTIE Facility:[facility] Procedures Date Procedure Procedure Detail Performing Clinician Start: 04-05-2024 Urnls dip stick/tabl et rgnt non-auto w/o micrscp Surekha Apodaca RECYCLING COORDINATOR Work Phone: Start: 03-21-2024 Urnls dip stick/tabl et rgnt non-auto w/o micrscp Surekha Apodaca RECYCLING COORDINATOR Work Phone: Start: 02-08-2024 [facility] FREE T4 Surekha Apodaca RECYCLING COORDINATOR Work Phone: Start: 02-08-2024 [facility] HGBA1C Surekha Apodaca RECYCLING COORDINATOR Work Phone: Start: 02-08-2024 [facility] TSH Surekha Apodaca RECYCLING COORDINATOR Work Phone: Start: 02-08-2024 Urnls dip stick/tabl et rgnt non-auto w/o micrscp Surekha Apodaca RECYCLING COORDINATOR Work Phone: Start: 01-26-2024 [facility] C URINE Surekha Apodaca RECYCLING COORDINATOR Work Phone: Start: 01-26-2024 [facility] U DRUG SCREEN Leno carlo Brigid Paulie RECYCLING COORDINATOR Work Phone: Start: 01-26-2024 [facility] ABO/RH Surekha Apodaca RECYCLING COORDINATOR Work Phone: Start: 01-26-2024 [facility] ABSC Surekha Brigid Paulie RECYCLING COORDINATOR Work Phone: Start: 01-26-2024 [facility] CBC W/ AUTO DIFF S byron Brigid Paulie RECYCLING COORDINATOR Work Phone: Start: 01-26-2024 [facility] HEP BS AG Adali Apodaca RECYCLING COORDINATOR Work Phone: Start: 01-26-2024 [facility] HIV SCREEN 4TH GENERATION WRFX Surekha Apodaca RECYCLING COORDINATOR Work Phone: Start: 01-26-2024 [facility] RPR WITH CONF RFX Surekha Apodaca RECYCLING COORDINATOR Work Phone: Start: 01-26-2024 [facility] RUBELLA IGG Lenoalfie brendon Apodaca RECYCLING COORDINATOR Work Phone: Start: 04-25-2023 Urnls dip stick/tabl et rgnt non-auto w/o micrscp Drake Chao DO Work Phone: Start: 10-14-2022 Urine culture PHYSICIAN NO FAMILY Start: 08-14-2021 Urine test visual color cmprsn angelics Manasa Roy MD Work Phone: None (qualifier value) Lee Ann Roldan Plan of Treatment Date Care Activity Detail Author Start: 05-02-2024 End: 05-02-2024 Patient encounter procedure 05/02/2024 11:30 AM EST Routine [facility] [address] [place] D [address] [phone] Lee Ann Roldan DO [address] [phone] [facility] Start: 04-05-2024 End: 04-05-2024 Patient encounter procedure [facility] Start: 04-05-2024 End: 04-05-2024 Professional / ancillary services management 04/05/2024 8:00 AM EST Ancillary Procedure [facility] [address] [phone] [facility] Start: 03-21-2024 End: 03-21-2024 Patient encounter procedure 03/21/2024 10:00 AM EST Routine [facility] [address] [phone] Surekha Apodaca NP [address] [place] [id number] related condition, second trimester (Primary Dx); 19 weeks gestation of ; Previous child with Down syndrome, antepartum [facility] Comment on above: related co ndition, second trimester (Primary Dx); 19 weeks gestation of ; Previous child with Down syndrome, antepartum Start: 03-08-2024 End: 03-08-2024 Patient encounter procedure 03/08/2024 1:00 PM EST Routine [facility] [address] [phone] Surekha Apodaca RECYCLING COORDINATOR [address] [place] [id number] [facility] Start: 02-16-2024 End: 01-16-2025 ABO/Rh ABO/Rh Lab Routine care, subsequent , first trimester 8 weeks gestation of Expected: 02/16/2024 (Approximate), Expires: 01/16/2025 [facility] Work Phone: Comment on above: Expected: 02/16/2024 (Approximate), Expires: 01/16/2025 Start: 02-16-2024 End: 01-16-2025 Antibody screen Antibody screen Lab Routine care, subsequent , first trimester 8 weeks gestation of Expected: 02/16/2024 (Approximate), Expires: 01/16/2025 [facility] Comment on above: Expected: 02/16/2024 (Approximate), Expires: 01/16/2025 Start: 02-16-2024 End: 01-16-2025 Bacteria identified in Urine by Culture Urine culture Microbiology Routine care, subsequent , first trimester 8 weeks gestation of Expected: 02/16/2024 (Approximate), Expires: 01/16/2025 [facility] Comment on above: Expected: 02/16/2024 (Approximate), Expires: 01/16/2025 Start: 02-16-2024 End: 01-16-2025 CBC W Auto Differential panel - Blood CBC and differential Lab Routine care, subsequent , first trimester 8 weeks gestation of Expected: 02/16/2024 (Approximate), Expires: 01/16/2025 [facility] Comment on above: Expected: 02/16/2024 (Approximate), Expires: 01/16/2025 Start: 02-16-2024 End: 01-16-2025 Drugs of abuse panel - Urine by Screen method Rapid drug screen, urine Lab Routine care, subsequent , first trimester 8 weeks gestation of Expected: 02/16/2024 (Approximate), Expires: 01/16/2025 [facility] Comment on above: Expected: 02/16/2024 (Approximate), Expires: 01/16/2025 Start: 02-16-2024 End: 01-16-2025 Hepatitis B virus surface Ag [Presence] in Serum or Plasma by Immunoassay Hepatitis B surface Ag Lab Routine care, subsequent , first trimester 8 weeks gestation of Expected: 02/16/2024 (Approximate), Expires: 01/16/2025 [facility] Comment on above: Expected: 02/16/2024 (Approximate), Expires: 01/16/2025 Start: 02-16-2024 End: 01-16-2025 HIV-1/HIV-2 antigen/antibody combination immunoassay HIV-1 and HIV-2 antibodies Lab Routine care, subsequent , first trimester 8 weeks gestation of Expected: 02/16/2024 (Approximate), Expires: 01/16/2025 [facility] Comment on above: Expected: 02/16/2024 (Approximate), Expires: 01/16/2025 Start: 02-16-2024 End: 01-16-2025 Reagin Ab [Presence] in Serum by RPR RPR Lab Routine care, subsequent , first trimester 8 weeks gestation of Expected: 02/16/2024 (Approximate), Expires: 01/16/2025 [facility] Comment on above: Expected: 02/16/2024 (Approximate), Expires: 01/16/2025 Start: 02-16-2024 End: 01-16-2025 Rubella IgG Rubella IgG Lab Routine care, subsequent , first trimester 8 weeks gestation of Expected: 02/16/2024 (Approximate), Expires: 01/16/2025 [facility] Comment on above: Expected: 02/16/2024 (Approximate), Expires: 01/16/2025 Start: 02-08-2024 End: 02-08-2024 ambulatory [facility] Comment on above: care, subse quent , first trimester (Primary Dx); 13 weeks gestation of Start: 02-08-2024 End: 02-07-2025 Hemoglobin A1c/Hemoglobin.total in Blood Hemoglobin A1c Lab Routine care, subsequent , first trimester Diabetes mellitus screening Expected: 02/08/2024 (Approximate), Expires: 02/07/2025 [facility] Comment on above: Expected: 02/08/2024 (Approximate), Expires: 02/07/2025 Start: 02-08-2024 End: 02-07-2025 [id number] PLUS Core [id number] PLUS Core Lab Routine care, subsequent , first trimester Previous child with Down syndrome, antepartum Expected: 02/08/2024 (Approximate), Expires: 02/07/2025 [facility] Comment on above: Expected: 02/08/2024 (Approximate), Expires: 02/07/2025 Start: 02-08-2024 End: 02-07-2025 Thyrotropin [Units/volume] in Serum or Plasma TSH Lab Routine care, subsequent , first trimester related fatigue in first trimester Expected: 02/08/2024 (Approximate), Expires: 02/07/2025 [facility] Comment on above: Expected: 02/08/2024 (Approximate), Expires: 02/07/2025 Start: 02-08-2024 End: 02-07-2025 Thyroxine (T4) free [Mass/volume] in Serum or Plasma T4, free Lab Routine care, subsequent , first trimester related fatigue in first trimester Expected: 02/08/2024 (Approximate), Expires: 02/07/2025 [facility] Comment on above: Expected: 02/08/2024 (Approximate), Expires: 02/07/2025 Start: 01-19-2024 End: 01-19-2024 Professional / ancillary services management 01/19/2024 2:00 PM EST Ancillary Procedure [facility] [address] [phone] [facility] Start: 11-13-2023 Influenza vaccination Influenza Vacc ine (#1) [facility] Start: 05-09-2023 End: 05-09-2023 Patient encounter procedure 05/09/2023 11:20 AM EST Routine [facility] [address] [phone] Drake Guidry DO [address] [place] [address] [facility] Start: 04-22-2023 End: 04-22-2024 ABO/Rh ABO/Rh Lab Routine Missed menses Expected: 04/22/2023 (Approximate), Expires: 04/22/2024 [facility] Comment on above: Expected: 04/22/2023 (Approximate), Expires: 04/22/2024 Start: 04-22-2023 End: 07-21-2023 Alpha fetoprotein, maternal Alpha fetoprotein, maternal Lab Routine Second trimester Expected: 04/22/2023 (Approximate), Expires: 07/21/2023 [facility] Comment on above: Expected: 04/22/2023 (Approximate), Expires: 07/21/2023 Start: 04-22-2023 End: 04-22-2024 Blood type and Indirect antibody screen panel - Blood Type and screen Lab Routine Missed menses Expected: 04/22/2023 (Approximate), Expires: 04/22/2024 [facility] Work Phone: Comment on above: Expected: 04/22/2023 (Approximate), Expires: 04/22/2024 Start: 04-22-2023 End: 04-22-2024 US for [facility] Comment on above: Expected: 04/22/2023 (Approximate), Expires: 04/22/2024 Start: 04-22-2023 End: 04-22-2024 US Pelvis transvaginal US OB transvaginal Imaging Routine Missed menses Expected: 04/22/2023 (Approximate), Expires: 04/22/2024 [facility] Comment on above: Expected: 04/22/2023 (Approximate), Expires: 04/22/2024 Start: 11-12-2022 Influenza vaccination Influenza Vacc ine (#1) [facility] Start: 10-18-2022 [facility] Start: 10-14-2022 Hospital admission [facility] Start: 11-12-2021 Influenza vaccination Flu vacc ine (Season Ended) [facility] Start: 2017 DTaP/Tdap/Td vaccine (1 - Tdap) DTaP/Tdap/Td vaccine (1 - Tdap) [facility] Start: 06-08-2003 COVID-19 Vaccine (1) COVID-19 Vaccin e (1) [facility] Bacteria identified in Urine by Culture Urine culture Microbiology Routine Missed menses Ordered: 04/22/2023 [facility] Comment on above: Ordered: 04/22/2023 End: 08-14-2021 C.trachomatis N.gonorrhoeae DNA, Urine C.trachomatis N.gonorrhoeae DNA, Urine Microbiology Routine One Time for 1 Occurrences starting 08/14/2021 until 08/14/2021 [facility] Work Phone: Comment on above: One Time for 1 Occur rences starting 08/14/2021 until 08/14/2021 CBC W Auto Different ial panel - Blood CBC and differential Lab Routine Missed menses Ordered: 04/22/2023 [facility] Comment on above: Ordered: 04/22/2023 Hemoglobin A1c measurement Hemoglobin A1c Lab Routine Missed menses Ordered: 04/22/2023 [facility] Comment on above: Ordered: 04/22/2023 Hepatitis B virus surface Ag [Presence] in Serum or Plasma by Immunoassay Hepatitis B surface antigen Lab Routine Missed menses Ordered: 04/22/2023 [facility] Comment on above: Ordered: 04/22/2023 Hepatitis C virus Ab [Presence] in Serum or Plasma by Immunoassay Hepatitis C antibody Lab Routine Missed menses Ordered: 04/22/2023 [facility] Comment on above: Ordered: 04/22/2023 HIV-1/HIV-2 antigen/antibody combination immunoassay HIV-1 and HIV-2 antibodies Lab Routine Missed menses Ordered: 04/22/2023 [facility] Comment on above: Ordered: 04/22/2023 Patient Education Depression, Ad ult (DC) [facility] Behavioral Health DC Instructions [facility] Work Phone: Patient referral [facility] Work Phone: Reagin Ab [Presence] in Serum by RPR RPR Lab Routine Missed menses Ordered: 04/22/2023 [facility] Comment on above: Ordered: 04/22/2023 Rubella antibody, IgG Rubella an tibody, IgG Lab Routine Missed menses Ordered: 04/22/2023 [facility] Comment on above: Ordered: 04/22/2023 THINPREP TIS PAP RFX HR HPV DNA AND C.TRACHOMATIS AND N.GONORRHOEAE THINPREP TIS PAP RFX HR HPV DNA AND C.TRACHOMATIS AND N.GONORRHOEAE Pathology and Cytology Routine care, subsequent , first trimester Screening for cervical cancer Screen for STD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 can make it hard to breathe. Asthma flares can range from minor to life-threatening. There is no cure for asthma, but medicines and lifestyle changes can help to control it. What are the causes? It is not known exactly what causes asthma, but certain things can cause asthma symptoms to get worse (triggers). What can trigger an asthma attack? ? Cigarette smoke. ? Mold. ? Dust. ? Your pet's skin flakes (dander). ? Cockroaches. ? Pollen. ? Air pollution (like household personalized living manager nurse, wood smoke, smog, or chemical odors). What are the signs or symptoms? ? Trouble breathing (shortness of breath). ? Coughing. ? Making high-pitched whistling sounds when you breathe, most often when you breathe out (wheezing). ? Chest tightness. ? Tiredness with little activity. ? Poor exercise tolerance. How is this treated? ? Controller medicines that help prevent asthma symptoms. ? Fast-acting reliever or rescue medicines. These give short-term relief of asthma symptoms. ? Allergy medicines if your attacks are brought on by allergens. ? Medicines to help control the body's defense (immune) system. ? Staying away from the things that cause asthma attacks. Follow these instructions at home: Avoiding triggers in your home ? Do not allow anyone to smoke in your home. ? Limit use of fireplaces and wood stoves. ? Get rid of pests (such as roaches and mice) and their droppings. ? Keep your home clean. ? Clean your floors. Dust regularly. Use cleaning products that do not smell. ? Wash bed sheets and blankets every week in hot water. Dry them in a dryer. ? Have someone vacuum when you are not home. ? Change your heating and air conditioning filters often. ? Use blankets that are made of polyester or cotton. General instructions ? Take dhvy-twj-murgdqk and prescription medicines only as told by your doctor. ? Do not smoke or use any products that contain nicotine or tobacco. If you need help quitting, askyour doctor. ? Stay away from secondhand smoke. ? Avoid doing things outdoors when allergen counts are high and when air quality is low. ? Warm up before you exercise. Take time to cool down after exercise. ? Use a peak flow meter as told by your doctor. A peak flow meter is a tool that measures how well your lungs are working. ? Keep track of the peak flow meter's readings. Write them down. ? Follow your asthma action plan. This is a written plan for taking care of your asthma and treating your attacks. ? Make sure you get all the shots (vaccines) that your doctor recommends. Ask your doctor about a flu shot and a pneumonia shot. ? Keep all follow-up visits. Contact a doctor if: ? You have wheezing, shortness of breath, or a cough even while taking medicine to prevent attacks. ? The mucus you cough up (sputum) is thicker than usual. ? The mucus you cough up changes from clear or white to yellow, green, coffman, or is bloody. ? You have problems from the medicine you are taking, such as: ? A rash. ? Itching. ? Swelling. ? Trouble breathing. ? You need reliever medicines more than 2?3 times a week. ? Your peak flow reading is still at 50?79% of your personal best after following the action plan for 1 hour. ? You have a fever. Get help right away if: ? You seem to be worse and are not responding to medicine during an asthma attack. ? You are short of breath even at rest. ? You get short of breath when doing very little activity. ? You have trouble eating, drinking, or talking. ? You have chest pain or tightness. ? You have a fast heartbeat. ? Your lips or fingernails start to turn blue. ? You are light-headed or dizzy, or you faint. ? Your peak flow is less than 50% of your personal best. ? You feel too tired to breathe normally. These symptoms may be an emergency. Get help right away. Call 911. ? Do not wait to see if the symptoms will go away. ? Do not drive yourself to the hospital. Summary ? Asthma is a long-term (chronic) condition in which the airways get tight and narrow. An asthma attack can make it hard to breathe. ? Asthma cannot be cured, but medicines and lifestyle changes can help control it. ? Make sure you understand how to avoid triggers and how and when to use your medicines. ? Avoid things that can cause allergy symptoms (allergens). These include animal skin flakes (dander) and pollen from trees or grass. ? Avoid things that pollute the air. These may include household personalized living manager nurse, wood smoke, smog, or chemical odors. This information is not intended to replace advice given to you by your health care provider. Make sure you discuss any questions you have (more content not included)...[facility]07-[facility]2024 NoteDischarge Summary Assessment/Plan Late care complicating , (O09.30: Supervision of with insufficient care, unspecified trimester) care insufficient (normal spontaneous vaginal delivery) (O80: Encounter for full-term uncomplicated delivery) Doing well. Progressing appropriately in stable condition. Discharge home today. Discharge instructions and prescription discussed To follow up in the office in 6 weeks. Patient to contact the office with any concerns or questions with 39 completed weeks gestation (Z3A.39: 39 weeks gestation of ) Orders: .Interpretation: Chlam/GC/Trich,NADEEM HCV Antibody RFX to Quant PCR Hepatitis B Surface Antigen HIV Screen 4th Generation wRfx RPR with Conf Rfx Rubella Antibody IgG Rubella Antibody IgM Chief Complaint r/o labor History of Present Illness Patient is a 23-year-old -0-0-1 at 39 weeks and 1 day presented to labor and delivery on 09/11/2023 with worsening contraction. Patient was seen in triage several hours prior and was discharged home and returned with worsening and more regular contraction. Patient was noted to be 4 to 5 cm dilated with regular contraction every 2 to 3 minutes and patient was admitted to the unit. Current has been complicated with insufficient care with only 1 visit at 19 weeks and 4 days where dating ultrasound was performed. Patient never completed OB labs. Epidural anesthesia initiated for pain management. Patient was expectantly managed and reached complete cervical dilation. Artificial amniotomy was performed with clear amniotic fluid. Patient was coached to push and delivered a viable female infant in OA position on 09/11/2023 at 0818, infant weighed 5# 15oz, 2687g with Apgars of 8/9. Superficial left labial laceration noted which requires no repair and it was hemostatic. Three vessels umbilical cord was noted. Intact placenta was delivered spontaneously. EBL 200mL. Patient recovering and stable condition in without any complication. This morning patient reports lochia is decreasing. Patient admits to minimal cramping which is controlled with pain medication. Tolerating regular diet and ambulation without difficulty. Voiding spontaneously without difficulty. Denies any chest pain, shortness of breath, nausea, vomiting, fevers or chills Review of Systems Negative otherwise listed above Physical Exam Alert and Oriented x3 CV RRR Lungs CTAB Abd Soft, U-1 firm Ext No edema, no calf tenderness bilaterally. Delivery Details Baby A Delivery Type:Vaginal D-EGA at [id number] weeks 6 days Total Length of Labor:318 minute(s) OB History History (0,0,0,2) # 1 Baby 1 Outcome Date: 09/15/2019 Outcome or Result: Vaginal Gest Age: 38 weeks Outcome: Live Sex: Female Complications: Downs syndrome; Respiratory distress needing oxygen Hospital: [facility] [place] Comment: precip delivery # 2 Baby 1 Outcome Date: 09/11/2023 Outcome or Result: Vaginal Gest Age: 39 weeks 6 days Outcome: Live Sex: Female Complications: None Complications: None Alexx Labor: 5 hr 18 min Problem List/Past Medical History Ongoing Smoker Historical None Procedure/Surgical History None. Medications docusate sodium 100 mg Cap, 100 mg= 1 cap(s), Oral, BID, 1 refills ibuprofen 600 mg Tab, 600 mg= 1 tab(s), Oral, q6hr, PRN, 1 refills Multivitamins, 1 tab(s), Oral, Daily Allergies Seafood (Respiratory distress) codeine (Vomiting, Dizziness) Social History Alcohol - Denies Alcohol Use, 08/27/2017 1-2 times per month, 06/29/2018 Current, 1-2 times per month, Alcohol use interferes with work or home: No. Drinks more than intended: No. Others hurt by drinking: No. Ready to change: No. Household alcohol concerns: No., 03/12/2018 Current, 01/12/2018 Substance Abuse - Denies Substance Abuse, 08/27/2017 Marijuana, 09/11/2023 Current, 03/12/2018 Current, 01/12/2018 Tobacco - High Risk, 08/27/2017 Former smoker, quit more than 30 days ago Tobacco Use:. uses e-cig, 06/29/2018 5-9 cigarettes (between 1/4 to 1/2 pack)/day in last 30 days Tobacco Use:. Cigarettes, 03/12/2018 10 or more cigarettes (1/2 pack or more)/day in last 30 days Tobacco Use:. Cigarettes, 01/12/2018 10 or more cigarettes (1/2 pack or more)/day in last 30 days Tobacco Use:., 08/27/2017 Immunizations Vaccine Date Status meningococcal conjugate vaccine 06/23/2016 Recorded human papillomavirus vaccine 06/23/2016 Recorded diphtheria/pertussis, acel/tetanus adult 11/02/2011 Recorded measles/mumps/rubella virus vaccine 10/24/2003 Recorded poliovirus vaccine, inactivated 10/23/2003 Recorded DTaP, unspecified formulation 10/23/2003 Recorded Hib, unspecified formulation 10/10/2001 Recorded DTaP, unspecified formulation 10/10/2001 Recorded (more content not included)...[facility]Result Comment: Electronically Signed By: Lee Ann Roldan DO.br\Date and Time Signed: 09/14/23 12:49 [id number] NoteDischarge Instructions Given Worsening The following Patient Education Materials have been given to the patient: EducationMaterial[facility] NoteGetWell Understands Education Yes GetWell Education Video How to Hand Express Breast Milk GetWell Learning Participants [facility]07-01-2024 NoteGetWell Understands Education Yes GetWell Education Video Dressing Your Baby GetWell Learning Participants [id number] NoteGetWell Understands Education Yes GetWell Education Video Parent or Smoker: How Does Your Child See You? GetWell Learning Participants [facility]07-01-2024 NoteGetWell Understands Education Yes GetWell Education Video How to Use a Breast Pump GetWell Learning Participants [facility]07-01-2024 NoteGetWell Learning Participants Patient GetWell Understands Education Yes GetWell Education Video How to Swaddle [facility]07-01-2024 NoteGetWell Learning Participants Patient GetWell Understands Education Yes GetWell Education Video [facility]-2024 NoteGetWell Learning Participants Patient GetWell Understands Education Yes GetWell Education Video 6 Survival Tips for New [facility]07-01-2024 NoteGetWell Education Video Understanding Depression GetWell Learning Participants GetWell Understands EducationGood [facility]07-01-2024 NoteGetWell Learning Participants Patient GetWell Understands Education Yes GetWell Education Video Caring for Yourself After Vaginal DeliveryGood [facility]07-01-2024 NoteGetWell Learning Participants Patient GetWell Understands Education Yes GetWell Education Video Using a Rubber Bulb to Clear a Baby's NoseGood [facility]07-01-2024 NoteGetWell Learning Participants Patient GetWell Understands Education Yes GetWell Education Video : [facility] to [facility]07-01-2024 NoteGetWell Learning Participants Patient GetWell Understands Education Yes GetWell Education Video How to Calm a Crying BabyGood [facility] Hospital07-01-2024 NoteGetWell Learning Participants Patient GetWell Understands Education Yes GetWell Education Video Caring for Your [place]: [facility]Good [facility]07-[facility]-2024 Note GetWell Learning Participants Patient GetWell Understands Education Yes GetWell Education Video Caring for Your [place]: [facility]07-01-2024 Note GetWell Learning Participants Patient GetWell Understands Education Yes GetWell Education Video 5 Things You Can Expect With a New [facility]07-01-2024 NoteGetWell Learning Participants Patient GetWell Understands Education Yes GetWell Education Video Avoiding Infections in the [facility]07-01-2024 Note Nyaely Learning Participants Patient Nayely Understands Education Yes Nayely Education Video Caring for Your [place]: [facility]07-01-2024 Evaluation + Plan noteExtracted from: Title:OB Progress Note Author:Marcela landin DO Lee Ann J. Date:09/12/23 Late care complicat ing , (O09.30: Supervision of with insufficient care, unspecified trimester) care insufficient (normal spontaneous vaginal delivery) (O80: Encounter for full-term uncomplicated delivery) Doing well. recovery progressing appropriately in stable condition. Continue current management May discharge tomorrow if patient continue to do well with 39 completed weeks gestation (Z3A.39: 39 weeks gestation of ) Orders: acetaminophen, 975 mg = 3 tab(s), Tab, Oral, q8hr PRN Headache, Routine, Start date 09/11/23 8:42:00 EDT, 09/11/23 8:42:00 EDT benzocaine-menthol topical, 1 spray(s), [place], Topical, q4hr PRN Pain, Routine, Start date 09/11/23 8:41:00 EDT, Patient may self administer calcium carbonate, 500 mg = 1 tab(s), Tab-Chew, Oral, q6hr PRN Control of stomach acid, Routine, Start date 09/11/23 8:41:00 EDT, 09/11/23 8:41:00 EDT docusate, 100 mg = 1 cap(s), Oral, BID, # 60 cap(s), Refills(s) 1, Pharmacy: [id number], 162.5, cm, 09/11/23 3:42:00 EDT, Height/Length Dosing, 73.6, kg, 09/11/23 3:42:00 EDT, Weight Dosing docusate, 100 mg = 1 cap(s), Cap, Oral, BID, Routine, Start date 09/11/23 9:00:00 EDT, 09/11/23 8:41:00 EDT ferrous sulfate, 325 mg = 1 tab(s), Tab, Oral, Daily, Routine, Start date 09/12/23 9:00:00 EDT, 09/12/23 7:26:00 EDT hydrocortisone topical, 1 karl, Cream-Karl, Rectal, QID PRN Other (see comment), Routine, Start date 09/11/23 8:41:00 EDT hydrocortisone topical, 25 mg = 1 supp, Supp, Rectal, BID PRN Other (see comment), Routine, Start date 09/11/23 8:41:00 EDT, 09/11/23 8:41:00 EDT ibuprofen, 600 mg = 1 tab(s), Tab, Oral, q6hr PRN Other (see comment), Routine, Start date 09/11/23 8:41:00 EDT, 09/11/23 8:41:00 EDT ibuprofen, 600 mg = 1 tab(s), Oral, q6hr, PRN Other (see comment), # 60 tab(s), Refills(s) 1, Pharmacy: [facility], 162.5, cm, 09/11/23 3:42:00 EDT, Height/Length Dosing, 73.6, kg, 09/11/23 3:42:00 EDT, Weight Dosing lanolin topical, 1 karl, Ointment, Topical, q2hr PRN Dry skin, Routine, Start date 09/11/23 8:41:00 EDT, Patient may self administer multivitamin, , 1 tab(s), Tab, Oral, Daily, Routine, Start date 09/11/23 9:00:00 EDT simethicone, 80 mg = 1 tab(s), Tab-Chew, Oral, QID PRN Gas, Routine, Start date 09/11/23 8:41:00 EDT, 09/11/23 8:41:00 EDT witch an topical, 1 karl, Pad, Topical, q4hr PRN Other (see comment), Routine, Start date 09/11/23 8:41:00 EDT, Patient may self administer zolpidem, 5 mg = 1 tab(s), Tab, Oral, Bedtime PRN Sleep for 7 day(s), Stop date 09/18/23 8:40:00 EDT, Routine, Start date 09/11/23 8:41:00 EDT, 09/11/23 8:41:00 EDT 07 Surgical Pathology Report ABO/Rh History Check Ambulate CBC w/ Indices Chlam/GC/Trich,NADEEM Communication Order Consult to Dough Panner Education Ice Therapy Notify Provider Notify Provider Notify Provider Vital Signs Pathology Tissue Exam Peripheral IV Removal Checks Regular Diet Saline Lock Convert From IV Sitz Bath Straight Cath Vital Signs Extracted from: Title:ANES Post-Labor Epidural Author:Reynaldo Shepard Jr, DO Date:09/12/23 Plan Transfer/Discharge: Stable for discharge from anesthetic standpoint.. Extracted from: Title:OB Admission H&P Author:Victor Manuel Roldan DO Date:09/11/23 Late care complicat ing , (O09.30: Supervision of with insufficient care, unspecified trimester) care insufficient with 39 completed weeks gestation (Z3A.39: 39 weeks gestation of ) Admit to L&D with routine OB management Epidural anesthesia infusing for pain management Continue expectant management Anticipate Orders: carboprost, 250 microgram = 1 mL, Injection, IntraMuscular, Once PRN Other (see comment), Routine, Start date 09/11/23 5:57:00 EDT, 09/11/23 5:57:00 EDT Dextrose 5% in Lactated Ringers intravenous solution 1,000 mL, 1,000 mL, IV, 125 mL/hr, Routine, Start date 09/11/23 3:12:00 EDT, 8 hour(s), Total volume (mL): 1,000, 64.5 kg, May saline lock IV if patient desires mobility, 1.68, m2 lidocaine, 600 mg, 30 mL, Injection, Misc, Once PRN Other (see comment), Routine, Start date 09/11/23 5:57:00 EDT methylergonovine, 0.2 mg = 1 mL, Injection, IntraMuscular, Once PRN Other (see comment), Routine, Start date 09/11/23 5:57:00 EDT, 09/11/23 5:57:00 EDT ondansetron, 4 mg = 2 mL, Injection, IV Push, q4hr PRN Nausea, Routine, Start date 09/11/23 3:12:00 EDT, 09/11/23 3:12:00 EDT oxytocin 30 unit(s) + Dextrose 5% in Lactated Ringers intravenous solution 500 mL, 500 mL, IV, Titrate, Routine, Start date 09/11/23 5:57:00 EDT, Total volume (mL): 500, Titrate to control bleeding after delivery of placenta., 73.6 kg, 1.82, m2 povidone iodine topical, 1 karl, Soln-Top, Topical, Once PRN Other (see comment), Routine, Start date 09/11/23 5:57:00 EDT tranexamic acid + Generic Diluent 100 mL, 1,000 mg = 100 mL, Soln-IV, IV Piggyback, Once PRN Other (see comment), Routine, Start date 09/11/23 5:57:00 EDT, 200 mL/hr, Infuse over 30 minute(s) ABO/Rh ABO/Rh History Check ABO/Rh Retype Ambulate Antibody Screen Blood Bank ID# Buprenorphine Screen Urine Catheterization for Residual Urine CBC w/ Indices Communication Order Communication Order Physician to Nursing Communication Order Physician to Nursing Communication Order Physician to Nursing Consult to Anesthesia Consult to Bit Bender Drug Screen Urine Heart Monitor External Group B Streptococcus colonization by PCR HCV Antibody RFX to Quant PCR Hepatitis B Surface Antigen HIV Screen 4th Generation wRfx Ice Chips and Sips Notify Provider Notify Provider Notify Provider Notify Provider Vital Signs Perineal Care Peripheral IV Insertion Place in Status RPR with Conf Rfx Rubella Antibody IgG Rubella Antibody IgM Shower UA with Cult Rflx Vital Signs Extracted from: Title:L&D Epidural note Author:Marium Forte Jr., DO Date:09/11/23 Impression and Plan Plan Labor epidural at request of patient.. Diagnostic Tests Pending * Chlam/GC/Trich,NADEEM 09/11/23 [facility]07-01-2024 NoteProgress Note-Physician Subjective Patient is status post Normal Spontaneous Vaginal Delivery, PPD#1. Patient is doing well, without complaints. Reports pain is controlled with pain medication. Reports lochia is decreasing. Denies anychest pain, shortness of breath, nausea, vomiting, fevers/chills. Tolerating regular diet and ambulating without difficulty. Voiding spontaneously without difficulty. Physical Exam Vitals & Measurements T: 36.5 ?C(Axillary) TMIN: 36.4 ?C(Oral) TMAX: 36.5 ?C(Axillary) HR: 70(Monitored) RR: 16 BP: 116/74 SpO2: 100% Alert and Oriented x3 CV RRR Lungs CTAB Abd Soft, U-1 firm Ext No edema, no calf tenderness bilaterally Recovery and Fundal ToneFirm Fundal Height PostpartumAt umbilicus Lochia AmountLight Lochia ColorRubra Assessment/Plan Late care complicating , (O09.30: Supervision of with insufficient care, unspecified trimester) care insufficient (normal spontaneous vaginal delivery) (O80: Encounter for full-term uncomplicated delivery) Doing well. recovery progressing appropriately in stable condition. Continue current management May discharge tomorrow if patient continue to do well with 39 completed weeks gestation (Z3A.39: 39 weeks gestation of ) Orders: acetaminophen, 975 mg = 3 tab(s), Tab, Oral, q8hr PRN Headache, Routine, Start date 09/11/23 8:42:00 EDT, 09/11/23 8:42:00 EDT benzocaine-menthol topical, 1 spray(s), [place], Topical, q4hr PRN Pain, Routine, Start date 248:41:00 EDT, Patient may self administer calcium carbonate, 500 mg = 1 tab(s), Tab-Chew, Oral, q6hr PRN Control of stomach acid, Routine, Start date 09/11/23 8:41:00 EDT, 09/11/23 8:41:00 EDT docusate, 100 mg = 1 cap(s), Oral, BID, # 60 cap(s), Refills(s) 1, Pharmacy: [facility], 162.5, cm, 09/11/23 3:42:00 EDT, Height/Length Dosing, 73.6, kg, 09/11/23 3:42:00 EDT, Weight Dosing docusate, 100 mg = 1 cap(s), Cap, Oral, BID, Routine, Start date 09/11/23 9:00:00 EDT, 09/11/23 8:41:00 EDT ferrous sulfate, 325 mg = 1 tab(s), Tab, Oral, Daily, Routine, Start date 09/12/23 9:00:00 EDT, 09/12/23 7:26:00 EDT hydrocortisone topical, 1 karl, Cream-Karl, Rectal, QID PRN Other (see comment), Routine, Start date 09/11/23 8:41:00 EDT hydrocortisone topical, 25 mg = 1 supp, Supp, Rectal, BID PRN Other (see comment), Routine, Start date 09/11/23 8:41:00 EDT, 09/11/23 8:41:00 EDT ibuprofen, 600 mg = 1 tab(s), Tab, Oral, q6hr PRN Other (see comment), Routine, Start date 248:41:00 EDT, 09/11/23 8:41:00 EDT ibuprofen, 600 mg = 1 tab(s), Oral, q6hr, PRN Other (see comment), # 60 tab(s), Refills(s) 1, Pharmacy: [facility], 162.5, cm, 09/11/23 3:42:00 EDT, Height/Length Dosing, 73.6, kg, 243:42:00 EDT, Weight Dosing lanolin topical, 1 karl, Ointment, Topical, q2hr PRN Dry skin, Routine, Start date 09/11/23 8:41:00 EDT, Patient may self administer multivitamin, , 1 tab(s), Tab, Oral, Daily, Routine, Start date 09/11/23 9:00:00 EDT simethicone, 80 mg = 1 tab(s), Tab-Chew, Oral, QID PRN Gas, Routine, Start date 09/11/23 8:41:00 EDT, 09/11/23 8:41:00 EDT witch an topical, 1 karl, Pad, Topical, q4hr PRN Other (see comment), Routine, Start date 09/11/23 8:41:00 EDT, Patient may self administer zolpidem, 5 mg = 1 tab(s), Tab, Oral, Bedtime PRN Sleep for 7 day(s), Stop date 09/18/23 8:40:00 EDT, Routine, Start date 09/11/23 8:41:00 EDT, 09/11/23 8:41:00 EDT 07 Surgical Pathology Report ABO/Rh History Check Ambulate CBC w/ Indices Chlam/GC/Trich,NADEEM Communication Order Consult to Dough Panner Education Ice Therapy Notify Provider Notify Provider Notify Provider Vital Signs Pathology Tissue Exam Peripheral IV Removal Checks Regular Diet Saline Lock Convert From IV Sitz Bath Straight Cath Vital Signs Delivery Details Baby A Delivery Type:Vaginal D-EGA at [id number] weeks 6 days Total Length of Labor:318 minute(s) OB History History (0,0,0,1) # 1 Baby 1 Outcome Date: 09/15/2019 Outcome or Result: Vaginal Gest Age: 38 weeks Outcome: Live Sex: Female Complications: Downs syndrome; Respiratory distress needing oxygen Hospital: [facility] [place] Comment: precip delivery Problem List/Past Medical History Ongoing Smoker Historical None Medications Inpatient acetaminophen 325 mg Tab, 975 mg= 3 tab(s), Oral, q8hr, PRN benzocaine-menthol 20%-0.5% topical spray, 1 spray(s), Topical, q4hr, PRN calcium carbonate 500 mg Chew Tab, 500 mg= 1 tab(s), Oral, q6hr, PRN docusate sodium 100 mg Cap, 100 mg= 1 cap(s), Oral, BID ferrous sulfate 325 mg Tab, 325 mg= 1 tab(s), Oral, Daily hydrocortisone 2.5% Rectal Crm w/Appl, 1 karl, Rectal, QID, PRN hydrocortisone 25 mg Supp, 25 mg= 1 supp, Rectal, BID, PRN ibuprofen 600 mg Tab, 600 mg= 1 tab(s), Oral, q6 (more content not included)... [facility]:Result Comment: Electronically Signed By: Lee Ann Roldan DO.noemi\Date and Time Signed: 09/12/23 08:13 EDT 09-11-2023 Hospital Discharge instructions Patient Education 09/11/2023 09:31:57 Care After Vaginal Delivery Care After Vaginal Delivery The following information offers guidance about how to care for yourself from the time you deliver your baby to 6 12 weeks after delivery ( period). If you have problems or questions, contact your health care provider for more specific instructions. Follow these instructions at home: Vaginal bleeding It is normal to have vaginal bleeding (lochia) after delivery. Wear a sanitary pad for bleeding anddischarge. ?During the first week after delivery, the amount and appearance of lochia is often similar to a menstrual period. ?Over the next few weeks, it will gradually decrease to a dry, yellow-brown discharge. ?For most women, lochia stops completely by 4 6 weeks after delivery, but it can vary. Change your sanitary pads frequently. Watch for any changes in your flow, such as: ?A sudden increase. ?A change in color. ?Large blood clots. If you pass a blood clot from your vagina, save it and call your health care provider. Do not flush blood clots down the toilet before talking with your health care provider. Do not use tampons or douches until your health care provider approves. If you are not , your period should return 6 8 weeks after delivery. If you are feeding your baby breast milk only, your period may not return until you stop . Perineal care Keep the area between the vagina and the anus (perineum) clean and dry. Use medicated pads and pain-relieving sprays or creams as told. If you had a tear or a surgical cut in the perineum (episiotomy), check the area for signs of infection until you are healed. Check for: ?More redness, swelling, or pain. ?Pus or a bad smell. You may be given a squirt bottle to use instead of wiping to clean the perineum area after you use the bathroom. Pat the area gently to dry it. To relieve pain caused by an episiotomy, a tear, or swollen veins in the anus (hemorrhoids), take awarm sitz bath 2 4 times a day, or as many as told by your health care provider. You can use a bathtub or a basin you put over the toilet as a sitz bath. Breast care In the first few days after delivery, your breasts may feel heavy, full, and uncomfortable (breast engorgement). Milk may also leak from your breasts. Ask your health care provider about ways to helprelieve the discomfort. If you breastfeed: ?Wear a bra that supports your breasts and fits well. Use breast pads to absorb milk that leaks. ?Keep your nipples clean and dry. Apply creams and ointments as told. ?You may have uterine contractions every time you breastfeed for up to several weeks after delivery. This helps your uterus return to its normal size. ?If you have any problems with , tell your health care provider or garnishment specialist. If you do not breastfeed: ?Avoid touching your breasts. Do not squeeze out (express) milk. Doing this can make your breasts produce more milk. ?Wear a bra that supports your breasts and fits well. Use cold packs to help with swelling. ?Talk to your health care provider about what [id number] medicines can help with pain. Intimacy and sexuality Ask your health care provider when you can engage in sexual activity. This may depend upon: ?Your risk of infection. ?How fast you are healing. ?Your comfort and desire to engage in sexual activity. You are able to get after delivery, even if you have not had your period. Talk with your health care provider about control (contraception) or family planning. Medicines Take [id number]-dvs-[id number] and prescription medicines only as told by your health care provider. Take an gpeg-oaw-nybnrro stool softener to help ease bowel movements as told by your health care provider. If you were prescribed antibiotics, take them as told by your health care provider. Do not stop using the antibiotic even if you start to feel better. Review all previous and current prescriptions to check for the possible transfer into your breast milk. Ask your health care provider or garnishment specialist for help if needed. Activity Gradually return to your normal activities as told by your health care provider. Rest as much as possible. Try to nap while your baby is sleeping. Eating and drinking Drink enough fluid to keep your urine pale yellow. To help prevent or relieve constipation, eat high-fiber foods every day. Choose healthy eating to support and healing. Take your vitamins until your health care provider tells you to stop. General recommendations Do not use any products that contain nicotine or tobacco. These products include cigarettes, chewing tobacco, and vaping devices, such as e-cigarettes. These can delay healing. If you need help quitting, ask your health care provider. ?Secondhand smoke exposure is dangerous for your baby. It can increase the risk of illness and sudden infant syndrome (SIDS). ?Nicotine and other chemicals pass through breast milk to the baby. Alcohol use can be dangerous during the period. Drinking alcohol may impair your judgment and ability to safely care for your baby. ?Not drinking alcohol is the safest option for mothers. Alcohol passes through breastmilk to the baby. Alcohol can be damaging to your baby's development, growth, and sleep patterns. ?If you breastfeed and drink alcohol, wait at least 2 hours after a single drink before feeding your baby. Do not take medicines or drugs that are not prescribed to you, especially if you breastfeed. Visit your health care provider for a checkup within the first 3 6 weeks after delivery. Complete a comprehensive visit no later than 12 weeks after delivery. Keep all follow-up visits. Your health care provider will check your healing after delivery and also check your blood pressure. Where to find more information U.S. Department of Health and Human Services Office of Women's Health: womenshealth.gov The [employer]: acog.org Contact a health care provider if: You feel unusually sad or worried. Your breasts become red, painful, or hard. You have nausea and vomiting and are unable to eat or drink anything for 24 hours. You have a fever or other signs of infection. You have bleeding that soaks through one pad an hour or you have blood clots the size of an egg or larger. You have a severe headache that does not go away or you have a headache with vision changes. Get help right away if: You have chest pain or difficulty breathing. You have sudden, severe leg pain. You faint or have a seizure. You have thoughts about hurting yourself or your baby. You have any of the following symptoms and you were unable to reach your health care provider: ?A fever or other signs of infection. ?Bleeding that is soaking through one pad an hour or you have blood clots the size of an egg or larger. ?A severe headache that does not go away or you have a headache with vision changes. These symptoms may be an emergency. Get help right away. Call 911. Do not wait to see if the symptoms will go away. Do not drive yourself to the hospital. Get help if you ever feel like you may hurt yourself or others, or have thoughts about taking your own life. Go to your nearest emergency room or: Call 911. Call the National Suicide Prevention Lifeline at or 668. This is open 24 hours a day. Text the Crisis Text Line at 084858. Summary The period of time after you deliver your up to 6 12 weeks after delivery is called the period. If you are , review all previous and current prescriptions to check for possible transfer into breast milk. Keep all follow-up visits. Your health care provider will check your healing after delivery and also check your blood pressure. Contact a health care provider if you feel unusually sad or worried, or if you experience any othercomplications during the period. This information is not intended to replace advice given to you by your health care provider. Make sure you discuss any questions you have with your health care provider. Document Revised: 06/16/2022 Document Reviewed: 06/01/2022 [employer] Patient Education 2022 [employer]. Follow Up Care 09/11/2023 02:49:20 With:Lee Ann Roldan Address: [address] [place] [id number] [facility] (1) When:6 weeks Comments:Call Dr if fever>100.5 F, heavy bleedingCall for severe abdominal painNothing in the vagina for 6 weeksCall for any problems.Call physician if symptoms worsenCall today to schedule your follow up [facility]06-30-2024 NoteDischarge Instructions Given Worsening The following Patient Education Materials have been given to the patient: [facility] NoteHistory and Physical Reason for Visit OB Labor check Assessment/Plan Late care complicating , (O09.30: Supervision of with insufficient care, unspecified trimester) care insufficient with 39 completed weeks gestation (Z3A.39: 39 weeks gestation of ) Admit to L&D with routine OB management Epidural anesthesia infusing for pain management Continue expectant management Anticipate Orders: carboprost, 250 microgram = 1 mL, Injection, IntraMuscular, Once PRN Other (see comment), Routine, Start date 09/11/23 5:57:00 EDT, 09/11/23 5:57:00 EDT Dextrose 5% in Lactated Ringers intravenous solution 1,000 mL, 1,000 mL, IV, 125 mL/hr, Routine, Start date 09/11/23 3:12:00 EDT, 8 hour(s), Total volume (mL): 1,000, 64.5 kg, May saline lock IV if patient desires mobility, 1.68, m2 lidocaine, 600 mg, 30 mL, Injection, Misc, Once PRN Other (see comment), Routine, Start date 09/11/23 5:57:00 EDT methylergonovine, 0.2 mg = 1 mL, Injection, IntraMuscular, Once PRN Other (see comment), Routine, Start date 09/11/23 5:57:00 EDT, 09/11/23 5:57:00 EDT ondansetron, 4 mg = 2 mL, Injection, IV Push, q4hr PRN Nausea, Routine, Start date 09/11/23 3:12:00EDT, 09/11/23 3:12:00 EDT oxytocin 30 unit(s) + Dextrose 5% in Lactated Ringers intravenous solution 500 mL, 500 mL, IV, Titrate, Routine, Start date 09/11/23 5:57:00 EDT, Total volume (mL): 500, Titrate to control bleeding after delivery of placenta., 73.6 kg, 1.82, m2 povidone iodine topical, 1 karl, Soln-Top, Topical, Once PRN Other (see comment), Routine, Start date 09/11/23 5:57:00 EDT tranexamic acid + Generic Diluent 100 mL, 1,000 mg = 100 mL, Soln-IV, IV Piggyback, Once PRN Other (see comment), Routine, Start date 09/11/23 5:57:00 EDT, 200 mL/hr, Infuse over 30 minute(s) ABO/Rh ABO/Rh History Check ABO/Rh Retype Ambulate Antibody Screen Blood Bank ID# Buprenorphine Screen Urine Catheterization for Residual Urine CBC w/ Indices Communication Order Communication Order Physician to Nursing Communication Order Physician to Nursing Communication Order Physician to Nursing Consult to Anesthesia Consult to Bit Bender Drug Screen Urine Heart Monitor External Group B Streptococcus colonization by PCR HCV Antibody RFX to Quant PCR Hepatitis B Surface Antigen HIV Screen 4th Generation wRfx Ice Chips and Sips Notify Provider Notify Provider Notify Provider Notify Provider Vital Signs Perineal Care Peripheral IV Insertion Place in Status RPR with Conf Rfx Rubella Antibody IgG Rubella Antibody IgM Shower UA with Cult Rflx Vital Signs History of Present Illness Patient is a 23-year-old -0-0-1 at 39 weeks and 1 day presented to labor and delivery with worsening contraction. Patient was seen in triage several hours prior and was discharged home and return with worsening and more regular contraction. Patient was noted to be 4 to 5 cm dilated with regular contraction every 2 to 3 minutes and patient was admitted to the unit. Current has been complicated with insufficient care with only 1 visit at 19 weeks and 4 days where dating ultrasound was performed. Patient never completed OB labs and all OB labs was drawn last night. Patient denies any leaking of fluid or vaginal bleeding. Reports good move ment. Review of Systems Negative otherwise stated above Obstetric Exam Baby A FHR Interpretation Category:I Perez's Score11 Physical Exam Alert and Oriented x3 CV RRR Lungs CTAB Abd Soft, Uterus non-tender Ext No edema, no calf tenderness bilaterally Labor Details Baby A FHR Baseline:120 FHR Baseline Description:Normal, 110-160 bpm FHR Baseline Variability:Moderate variability FHR Acceleration Description:Abrupt FHR Interpretation Category:I Activity:Present per patient Membranes Membrane Status:Intact Uterine Uterine ActivityNormal Uterine Contraction Frequency2-3 Uterine Contraction Monitoring MethodExternal toco Cervical Cervix [id number] cm Cervix [id number] Station Calculation0 Anesthesia Anesthesia Type OBEpidural LMP/EGA/ASAEL Gestational Age (EGA) and ASAEL * Note: EGA calculated as of 09/11/2023 ASAEL: 09/12/2023 EGA*: 39 weeks 6 days Type: Authoritative Method Date: 09/11/2023 Method: Unknown (09/11/2023) Confirmation: Confirmed Description: -- Comments: -- Entered by: Aneta Kellogg RN on 09/11/2023 Other ASAEL Calculations for this : No additional ASAEL calculations have been recorded for this OB History History (0,0,0,1) # 1 Baby 1 Outcome Date: 09/15/2019 Outcome or Result: Vaginal Gest Age: 38 weeks Outcome: Live Sex: Female Complications: Downs syndrome; Respiratory distress needing oxygen Hospital: [place] Comment: precip delivery Problem List/Past Medical (more content not included)...[facility]:Result Comment: Electronically Signed By: Lee Ann Roldan DO\Date and Time Signed: 09/11/23 07:50 [id number] NoteProgress Note-Physician Patient: DEIRDRE IYER Age: 23 years Sex: Female : 2000 Associated Diagnoses: None Author: Reynaldo Forte Jr., DO Postoperative Information Postoperative disposition: Postoperative disposition: Day 2. Optimetrix number: Optimetrix number [id number]. Anesthetic utilized: Regional: Epidural. Physical Examination Hemodynamically stable. Pain Assessment: Controlled. General: Awake, Alert, Appropriate. Respiratory: Adequate air exchange. Cardiovascular: Stable. Neurological: Normal sensory function. Assessment Anesthetic outcome No post-epidural complications noted.. Review / Management Condition: Stable. Plan Transfer/Discharge: Stable for discharge from anesthetic standpoint..[facility]Comment on above:Result Comment: Electronically Signed By: Reynaldo Forte Jr., DO\.br\Date and Time Signed: 09/11/23 07:29 [id number] NoteProgress Note-Physician Patient: DEIRDRE IYER Age: 23 years Sex: Female : 2000 Associated Diagnoses: None Author: Reynaldo Forte Jr., DO Chief Complaint Intrauterine Health Status Allergies: Allergic Reactions (All) Severity Not Documented Codeine- Dizziness and vomiting. Seafood- Respiratory distress. Canceled/Inactive Reactions (All) No Known Allergies Current medications.Problem list: All Problems Depression / SNOMED CT 24063099 / Confirmed H/O suicide attempt / SNOMED CT 2722175842 / Confirmed History of drug use / SNOMED CT 1419250690 / Confirmed / SNOMED CT 357136947 / Confirmed Smoker / SNOMED CT 962413900 / Confirmed Added secondary to documentation in Social History. Resolved: None / SNOMED CT 581861632 Resolved: / SNOMED CT 682635448 Review of Systems Respiratory: Negative. Cardiovascular: Negative. Hematology/Lymphatics: No bruising tendency, No bleeding tendency. Neurologic: Negative. Physical Examination Please refer to Labor floor nursing records for ongoing vital signs, and for intake and output totals while epidural was running. Review / Management Differential diagnosis: Active labor. Results review: Lab results 09/11/2023 5:30 EDT UA Spec Desc Burch UA Color Colorless UA Clarity Clear UA Spec Grav 1.005 UA pH 7.0 UA Protein Negative mg/dL UA Glucose Negative mg/dL UA Ketones Negative mg/dL UA Bili Negative mg/dL UA Blood Negative mg/dL UA Nitrite Negative mg/dL UA Urobilinogen Negative mg/dL UA Leuk Est Negative Tito/uL UA RBC 0-3 graded/HPF UA WBC 0-5 graded/HPF UA Mucous Trace graded/LPF 09/11/2023 3:30 EDT Blood Type and Rh A positive Antibody Screen Negative Rubella Unknown Hepatitis B Surface Antigen Unknown Hepatitis B Test Date 09/10/2023 GBS Status Results pending RPR Unknown VDRL Unknown HIV Status Unknown Sexually Transmitted Diseases Other: unknown 09/10/2023 22:20 EDT WBC 9.2 E9/L RBC 3.5 E12/L LOW HGB 11.4 gm/dL LOW Hct 32.0 % LOW MCV 91.8 fL MCH 32.8 pg MCHC 35.7 gm/dL RDW 12.6 % Platelet 186.0 E9/L MPV 9.2 fL RBC Morph NORMAL ABO/Rh A POS ABSC Gel Interp Negative 09/10/2023 20:46 EDT U Amph Scr NEGATIVE U Ryann Scr NEGATIVE U Benzodia Scr NEGATIVE U Cannab Scr NEGATIVE U Cocaine Scr NEGATIVE U Opiate Scr NEGATIVE U PCP Scr NEGATIVE U Suboxone Scr NEGATIVE U Fentanyl NEGATIVE UA Spec Desc Clean Catch UA Color Light-Yellow UA Clarity Clear UA Spec Grav 1.019 UA pH 6.5 UA Protein Trace mg/dL UA Glucose Negative mg/dL UA Ketones Negative mg/dL UA Bili Negative mg/dL UA Blood Negative mg/dL UA Nitrite Negative mg/dL UA Urobilinogen Negative mg/dL UA Leuk Est 25 Tito/uL Tito/uL UA RBC 0-3 graded/HPF UA Squam Epithelial >10 graded/HPF UA WBC 0-5 graded/HPF UA Mucous Trace graded/LPF . Impression and Plan Plan Labor epidural at request of patient.. Procedure Epidural injection procedure Date/ Time: 09/11/2023 04:12:00. Confirmed: patient, procedure, site, safety procedures followed. Performed by: Reynaldo Forte DO. Informed consent: signed by patient. Indication: Active labor.. Preparation and technique: informed consent obtained (from patient before the procedure), positioned (sitting), sterile preparation of site (patient's back was sterilly prepped and draped) (in usual fashion, with 10 % povidone iodine, draped to expose affected area), local anesthesia (1% lidocaine was applied to the patient's back before the epidural was attempted) (lidocaine without epinephrine,_1_ cc injected subcutaneously), approach (midline), needle (17 ga touhy) (placed via loss of resistance technique, At _L4-L5_ interspace.), aspiration (attempted for blood and CSF), injectant (test dose consisting of 3 ml of 1.5% lodocaine with 1:200,000 epi) (test dose given, Epidural catheter ins erted and secured at a depth of _11_ cm at skin.). Procedure tolerated: well. Complications: Negative heme, negative CSF, and negative response to test dose.. [employer] Epidural Medications Administered: Bolus dose consisted of 6 ml of 0.2% Ropivacaine and 100 mcg of fentanyl (2 ml) at 0428. Then a premixed epidural bag of 0.2% Ropivacaine, and 2 mcg/ml of fentanyl was administered via PCEA with basal rate at 10 ml/hour and demand boluses of _5_ ml with a lockout interval of _30_ minutes. The PCEA was started at 0431.[facility] HospitalComment on above:Result Comment: Electronically Signed By: Reynaldo Forte Jr., DO.noemi\Date and Time Signed: 09/11/23 07:29 [id number] NoteDischarge Instructions Given Worsening The following Patient Education Materials have been given to the patient: [facility]06-29-2024 NoteDischarge Instructions Given Worsening The following Patient Education Materials have been given to the patient: [facility]06-29-2024 Hospital Discharge instructions Follow Up Care 09/10/2023 20:25:13 With:Lee Ann Roldan Address: [address] [place] [phone] Business (1) When:09/12/2023 Comments:Call for any problems.Call for fever > 100.5 FCall for severe abdominal painCall physician for heavy vaginal bleedingCall physician if symptoms worsenCall today to schedule your follow upReturn for contractions closer, longer, harderReturn for decreased movementReturn if ruptured membranesor vaginal bleeding [facility]06-29-2024 Evaluation + Plan note Diagnostic Tests Pending * Hepatitis B Surface Antigen 09/10/23 * RPR with Conf Rfx 09/10/23 * Rubella Antibody IgM 09/10/23 * Rubella Antibody IgG 09/10/23 * HCV Antibody RFX to Quant PCR 09/10/23 * HIV Screen 4th Generation wRfx 09/10/23 * Group B Streptococcus colonization by PCR 09/10/23 [facility]02-09-2024 History of Present illness Narrative* Hodan Eaton, AMOR - 04/22/2023 9:00 AM EST Reason for Appointment: Patient ID: Deirdre Iyer is a 22 y.o. female who presents for Initial Visit Patient presents today for a Nurse OB Intake appointment. Patient is 20w0d with a Estimated Date ofDelivery: 09/12/23 OB History Para Term AB Living 2 1 SAB IAB Ectopic Multiple Live Births # Outcome Date GA Lbr Alexx/2nd Weight Sex Delivery Anes PTL Lv 2 Current 1 Current Medications: currently has no medications in their medication list. Medical History: Active Ambulatory Problems Diagnosis Date Noted No Active Ambulatory Problems Resolved Ambulatory Problems Diagnosis Date Noted No Resolved Ambulatory Problems No Additional Past Medical History No family history on file. Social History Tobacco Use Smoking status: Not on file Smokeless tobacco: Not on file Substance Use Topics Alcohol use: Not on file Drug use: Not on file History reviewed. No pertinent surgical history. Allergies Allergen Reactions Codeine Shellfish Allergy Seafood Vitals: Estimated body mass index is 21.8 kg/m as calculated from the following: Height as of 09/18/18: 5' 4 . Weight as of this encounter: 127 lb. BP: Patient's last menstrual period was 12/01/2022. Assessment/Plan Diagnoses and all orders for this visit: Missed menses - Type and screen; Future - ABO/Rh; Future - CBC and differential - Hemoglobin A1c - RPR - Rubella antibody, IgG - Hepatitis B surface antigen - Hepatitis C antibody - HIV-1 and HIV-2 antibodies - Urine culture - US OB transvaginal; Future - POCT , urine manually resulted - POCT urinalysis dipstick manually resulted - US OB > 14 WEEKS; Future Screening, , for anatomic survey - US OB ANATOMY SINGLE W US OB CERVICAL LENGTH; Future Second trimester - Alpha fetoprotein, maternal; Future Nurse Note: Patient presents today for first OB visit. Patients history has been reviewed in great detail including any potential risks. Patient signed consent forms and patient desires testing in both trimesters. Patient currently has no complaints and has been advised to drink 6-8 glasses of water a day, eatno raw or undercooked meat, and stay away from [facility]. Patient has also been advised to not change litter boxes and eat 6 small meals a day. Patient has been consulted regarding the do's and don'ts ofpregnancy. Patient was given labs, Anatomy scan, and MSAFP orders and all questions and concerns were answered. Follow Up: Patient is to return in 4 weeks for routine OB appointment. Follow Up: Patient is to have labs drawn at directed and return to office for initial OB appointment with provider. Patient may call office as needed with any concerns or questions. Nurse Visit Completed by: Hodan Eaton LPN documented in this encounterMetropolitan [facility] Psychiatric [id number] Discharge summary Author Sebastian Brock [facility] October 18, 2022 1:30pm Note Date/Time October 18, 2022 1:3 0pm [facility] [address] [place] [address] Discharge Summary Signed Patient: Deirdre Iyer MR#: [id number] : 2000 Acct:[id number] Age/Sex: 22 / F Adm Date: 3 Loc: 1S Room: [address] [place] [address]: Abdulkadir Maradiaga MD Copies to: [...] below At the time of the interview [place] presented as sad and withdrawn.? She reports a longstanding history of depression manifested as new plans with intentto complete suicide by overdosing on medication occurring yesterday. She feels as though her depression is all over the place , but rates it as an 8/10 today. Past psych history: Reports being diagnosed with anxiety and PTSD a couple of years ago at [facility] . Past hospitalizations: Denies. Past suicide attempts: [...] No Activity Restrictions Instructions: Depression, Adult (DC), [facility] DC Instructions Prescriptions: New nicotine (polacrilex) 2 mg Gum 2 mg buccal Q2HR PRN (Reason: Nicotine Cravings) Qty: 60 0RF escitalopram oxalate 5 mg Tablet 5 mg PO QHS 30 Days Qty: 30 0RF No Action No known home meds Follow Up: [facility] Hotline [Outside] [facility] - [facility] [Outside] [facility] [Physician] - (Call [facility] with any medical needs. ) Documented By: Sebastian Brock MD 10/18/22 1329 Signed By: <Electronically signed by Sebastian Brock MD> 10/18/22 1330 [facility] Work Phone: 1(716) 953-383608-06-2023 Progress note Author Sebastian Brock [facility] October 17, 2022 11:07am Note Date/Time October 17, 2022 11: 07am [facility] [address] [place], [place] [id number] Psychiatry Progress Note Signed Patient: Deirdre Iyer MR#: [id number] : 2000 Acct:[id number] Age/Sex: 22 / F Adm Date: 3 Loc: 1S Room: [address] [place] [address] Type : ADM IN Attending Dr: Abdulkadir [...] By: <Electronically signed by Sebastian Brock MD> 10/17/221106 [facility] Work Phone: 1(451) 117-835008-05-2023 Progress note Author Sebastian Brock [facility] October 16, 2022 12:07pm Note Date/Time October 16, 2022 12: 06pm [facility] [address] [place] [address] Psychiatry Progress Note Signed Patient: Deirdre Iyer MR#: [id number] : 2000 Acct:[id number] Age/Sex: 22 / F Adm Date: 3 Loc: 1S Room: [address] [place] [address] Type : ADM IN Attending Dr: Abdulkadir [...] alternatives explained Documented By: Sebastian Brock MD 10/16/221204 Signed By: <Electronically signed by Sebastian Brock MD> 10/16/221206 [facility] Work Phone: 1(276) 288-574608-04-2023 Progress note Author Javi gomez [facility] October 15, 2022 7:54am Note Date/Time October 15, 2022 7:5 4am [facility] [address] [place] [address] Psychiatry Progress Note Signed Patient: Deirdre Iyer MR#: [id number] : 2000 Acct:[id number] Age/Sex: 22 / F Adm Date: 3 Loc: Room: [address] [place] [address] Type : ADM IN Attending Dr: Abdulkadir [...] 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 She said [...] signed by Javi Maradiaga MD> 10/15/22 0754 [facility] Work Phone: 1(519) 329-781608-03-2023 History and physical note Author Javi gomez [facility] October 14, 2022 1:56pm Note Date/Time October 14, 2022 1:5 6pm [facility] [address] [place] [address] Psychiatry H&P Signed Patient: Deirdre Iyer MR#: [id number] : 2000 Acct:[id number] Age/Sex: 22 / F Adm Date: 3 Loc: Room: [address] [place] [address] Type: ADM IN Attending Dr: Abdulkadir Maradiaga [...] PTSD a couple of years ago at [facility] . Past hospitalizations: Denies. Past suicide attempts: [...] Cloudy A Urine pH 5.5 Ur Specific [place] 1.024 Urine Protein Negative Urine Glucose (UA) [...] signed by Javi Maradiaga MD> 10/14/22 1356 [facility] Work Phone: Evaluation note* Diagnosis Bacterial vaginosis- Primary Vaginitis and vulvovaginitis, unspecified Vaginal itching Pruritus of genital organs documented in this encounter [facility] Work Phone: evaluation note* Diagnosis Onset Date Resolution Status Blurry vision acute Major depressive disorder, recurrent, moderate acute Suicidal ideation acute [facility] Work Phone: Evaluation note* Diagnosis Missed menses Screening, , for anatomic survey Encounter for anatomic survey Second trimester state, incidental [facility]* Diagnosis care, subsequent , first trimester 8 weeks gestation of documented in this encounter [facility]* Diagnosis care, subsequent , first trimester- Primary 13 weeks gestation of Screening for cervical cancer Screening for malignant neoplasm of the cervix Screen for STD (sexually transmitted disease) Screening examination for venereal disease Previous child with Down syndrome, antepartum Diabetes mellitus screening Screening for diabetes mellitus related fatigue in first trimester [facility] Diagnosis related condition, second trimester- Primary 19 weeks gestation of Previous child with Down syndrome, antepartum [facility]* Diagnosis related condition, second trimester- Primary 22 weeks gestation of Previous child with Down syndrome, antepartum [facility] Narrative* Leticia Collado LPN - 01/17/2024 11:00 AM EST Subjective Deirdre Iyer is a 23 y.o. at 8w6d with a working estimated date of delivery of 08/22/2024, by Last Menstrual Period who presents for an initial visit. This is Planned. OB History Para Term AB Living 3 2 2 0 0 2 SAB IAB Ectopic Multiple Live Births 0 0 0 0 2 # Outcome Date GA Lbr Alexx/2nd Weight Sex Type Anes PTL Lv 3 Current 2 Term 09/11/23 39w0d 5 lb 15 oz F Vag-Spont EPI N CALLUM 1 Term 09/15/19 38w0d 4 lb 5 oz F Vag-Spont None N CALLUM Objective Physical Exam Expected Total Weight Gain: 15 lb-25 lb Pregravid BMI: 25.05 Never had chickenpox but is vaccinated, Will Breastfeed Immunizations: Up to date Labs ordered & printed will give to patient at [facility]/Dr. Nance Daily vitamins prescribed and sent to pharmacy First trimester screening and second trimester screening discussed. Declines genetic and chromosomal testing [facility] Narrative No data available for this section [facility] Attachments The following attachments cannot be sent through Care Everywhere. * Bacterial Vaginosis (Yemeni) [facility]: Hospital Discharge instructions Additional Instructions Regular Diet No [facility] Work Phone: [facility] Discharge instructions No data available for this section [facility] No data available for this section [facility] Summary Purpose Family History No Family History [...] section and content) DATE CREATED AUTHOR 05/22/2019 [facility] DATE CREATED AUTHOR AUTHOR'S ORGANIZ ATION [facility]/20[facility]2021 [facility] DATE CREATED AUTHOR AUTHOR'S ORGANIZ ATION 08/20/2021 [facility] DATE CREATED AUTHOR AUTHOR'S ORGANIZ ATION 02/20/2023 [facility] DATE CREATED AUTHOR AUTHOR'S ORGANIZ ATION 09/12/2023 [facility] DATE CREATED AUTHOR AUTHOR'S ORGANIZ ATION 09/13/2023 [facility] DATE CREATED AUTHOR AUTHOR'S ORGANIZ ATION 09/14/2023 [facility] DATE CREATED AUTHOR AUTHOR'S ORGANIZ ATION 11/19/2023 [facility] DATE CREATED AUTHOR AUTHOR'S ORGANIZ ATION 01/28/2024 [facility] DATE CREATED AUTHOR AUTHOR'S ORGANIZ ATION 01/29/2024 [facility] DATE CREATED AUTHOR AUTHOR'S ORGANIZ ATION 02/11/2024 [facility] DATE CREATED AUTHOR AUTHOR'S ORGANIZ ATION 02/16/2024 [facility] DATE CREATED AUTHOR AUTHOR'S ORGANIZ ATION 04/07/2024 [facility] EPIC Reason for Visit (unrecogniz ed section and content) Reason Comments Vaginal Itching itching, discharge, odor x1 week Reason Comments Initial Visit Ordered Prescriptions (unrec ognized section and content) Prescription Sig Dispensed Refills Start Date End Da te metroNIDAZOLE (FLAGYL) 500 MG tablet Take 1 tablet by mouth 2 times daily for 10 days 20 tablet 0 08/14/2021 08/24/2021 fluconazole (DIFLUCAN) 150 MG tablet Take 1 tablet by mouth once for 1 dose 1 tablet 0 08/14/2021 08/14/2021 Care Teams (unrecognized sec tion and content) Perennial House Manager Relationship Specialty Start Date End Date Mohini Galeano MD [address] [place], [place] [id number] PCP - General Family Medicine 08/14/21 Team Status: Active Member Role Status Dates PHYSICIAN NO FAMILY Primary Care Provider Active Team Status: Inactive Member Role Status Dates PHYSICIAN NO FAMILY Primary Care Provider Active Ephraim Santoyo Jr, MD Emergency Provider Active Abdulkadir Maradiaga MD Admit Provider, Attending Pr sophie Active Perennial House Manager Relationship Specialty Start Date End Date Milvia Leija MD [address] [place] [address] PCP - General Family Medicine 07/20/22 Perennial House Manager Relationship Specialty Start Date End Date Unallocated, Noms Provider[place] [address] PCP - General Family Medicine 09/13/23 Perennial House Manager Relationship Specialty Start Date End Date Unallocated, [place] [address] PCP - General Family Medicine 09/13/23 Perennial House Manager Relationship Specialty Start Date End Date Unallocated, Domenic Tony MD [facility] [address] [place] [address] PCP - General Family Medicine 09/13/23 Perennial House Manager Relationship Specialty Start Date End Date Unallocated, Domenic Tony MD [facility] [address] [place] [address] PCP - General Family Medicine 09/13/23 Perennial House Manager Relationship Specialty Start Date End Date Unallocated, Domenic Tony MD [facility] [address] [place] [address] PCP - General Family Medicine 09/13/23 Perennial House Manager Relationship Specialty Start Date End Date Unallocated, Domenic Tony MD [facility] [address] [place] [address] PCP - General Family Medicine 09/13/23 Perennial House Manager Relationship Specialty Start Date End Date Unallocated, Domenic Tony MD [facility] [address] [place] [address] PCP - General Family Medicine 09/13/23 FOR RECORDS PERTAINING TO PATIENTS WHO ARE [...] BE BASED ON THE PRIMARY CLINICAL RECORDS. [facility]. provides no warranty or guarantee of the accuracy or completeness of information in this document.
[2024-04-22 11:46] VITALS: BP 117/57; PULSE 83
[2024-04-22 12:29] LABS: Bilirubin Urine NEGATIVE (NEGATIVE); Blood Urine SMALL (NEGATIVE); Clarity Urine CLEAR (CLEAR); Color Urine YELLOW (YELLOW); Glucose Urine UA NEGATIVE (NEGATIVE); Ketones Urine NEGATIVE (NEGATIVE); Leukocyte Esterase Urine TRACE (NEGATIVE); Nitrite Urine NEGATIVE (NEGATIVE); Protein Urine NEGATIVE (NEG/TRACE); Specific Gravity Urine 1.025 (1.005-1.025)
[2024-04-22 12:33] LABS: Urine Microscopic Indicated YES
[2024-04-22 12:39] LABS: Bacteria Urine SMALL #/HPF (NONE SEEN); Cast Seen? SEEN #/LPF (NONE SEEN); Crystals Seen? None Seen #/HPF (None Seen); Hyaline Casts Urine FEW; Mucus Urine MODERATE (NONE SEEN); Squamous Epithelial Cell Urine MODERATE #/LPF (NONE/RARE); Urine Culture Indicated YES; WBC Urine 0-2 #/HPF (NONE SEEN)
== END 2024-04-22 12:30 | disposition home or self-care (01) ==
LOC: FBC 11:22
PROVIDERS: Admitting Provider Obstetrics & Gynecology; Visit Provider Obstetrics & Gynecology
DX: O46.92 Antepartum hemorrhage, unspecified, second trimester (principal); Z3A.20 20 weeks gestation of pregnancy
CPT/HCPCS: 59025; 81001; 87086; G0378; G0379

== ENCOUNTER 2025-02-25 18:58 | Emergency (ER) | payer OTHER, SELFPAY ==
[2025-02-25 19:03] VITALS: BP 136/71; PULSE 70; TEMP 36.6; O2SAT 96; BMI 31.1
[2025-02-25 19:38] LABS: Glucose Urine UA NEGATIVE (NEGATIVE)
[2025-02-25 19:39] LABS: HCG Qualitative Urine* NEGATIVE (NEGATIVE)
[2025-02-25 19:44] LABS: Cast Seen? NONE SEEN #/LPF (NONE SEEN); Crystals Seen? None Seen #/HPF (None Seen); Urine Culture Indicated NO
[2025-02-25 19:45] LABS: Hematocrit 38.3 % (36.0-48.0); Hemoglobin 12.9 g/dL (12.0-16.0); Immature Granulocytes Abs Auto 0.01 10^3/uL (0.00-0.03); Immature Granulocytes Pct Auto 0.1 % (0.0-0.5); Lymphocytes Absolute Auto 2.4 10^3/uL (1.2-3.8); Mean Corpuscular HGB Conc 33.7 g/dL (29.9-35.2); Mean Corpuscular Hemoglobin 31.3 pg (26.7-34.0); Mean Corpuscular Volume 93.0 fL (81.0-99.0); Platelet Count 275 10^3/uL (150-450); Red Blood Count 4.12 10^6/uL (4.20-5.40); White Blood Count 7.4 10^3/uL (4.0-11.0)
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
--- OUTSIDE RECORDS SUMMARY | 2025-02-25 19:51 | XMS_ITS | Clinical Summary ---
Author Organization [facility] Address [address], [address] [place] [address] Care Team Providers Care Receiving Dock Checker Name Role Phone Gianni Anaya MD Primary Care Provider [phone] Allergies Active AllergyReactionsCriticalityNoted DateCommentsCodeineNausea And Vomiting Low08/14/2021hellfish Protein-Containing Drug DldwbqsdUlbdmfurus19/03/2022 Medications MedicationSigDispense QuantityRefillsLast FilledStart DateEnd DateStatus MV-Min-Fe Fum-FA-DHA ( 1 PO) Take by mouthActive Fiznwokpnrfzveo-RJ-GZ 60-15-400 MG TABS Take 1 tablet by mouth every 4-6 hours as needed (not to exceed 4 tablets in 24 hours) 30 tablet 5Active Social History Tobacco UseTypesPacks/DayYears UsedDateSmoking Tobacco: NeverSmokeless Tobacco: NeverAlcohol UseStandard Drinks/WeekCommentsNot Currently0 (1 standard drink = 0.6 oz pure alcohol)occas on weekendsAUDIT-CAnswerDate RecordedQ1: How often do you have a drink containing alcohol?Never08/24/2024Q2: How many drinks containing alcohol do you have on a typical day when you are drinking?Patient does not drink08/24/2024Q3: How often do you have six or more drinks on one occasion?Never08/24/2024Interpersonal Safety Domain Source: IP Abuse Screening AnswerDate RecordedPhysical buyseHzrqbm00/13/2025Verbal yhxioObqwdu60/13/2025 Emotional evjjgDivzaw23/13/2025Financial mxghtXcysqo23/13/2025Sexual abuseDenies 08/24/2024CommentsNoSex and Gender InformationValueDate RecordedSex Assigned at BirthNot on fileLegal EmlPqmjft03/10/2013 2:55 PM ESTGender Identity Not on fileSexual OrientationNot on file Last Filed Vital Signs Vital SignReadingTime TakenCommentsBlood Olrwkdog672/8006 5:02 PM EDT Enlwl2335 5:02 PM PMOXfstjfwlupz34.7 ??C (98.1 ??F)08/24/2024 5:02 PM EDTRespiratory Ncsx294508/24/2024 5:02 PM EDTOxygen Mueeiwlqyc34%08/24/2024 5:02 PM EDTInhaled Oxygen Concentration--Dmoskg03 kg (130 lb)08/24/2024 5:02 PM EDT Zslgpo415.5 cm (5' 2 )08/24/2024 5:02 PM EDTBody Mass Index23.78008/24/2024 5:02 PM EDT Plan of Treatment Health MaintenanceDue DateLast DoneCommentsDTaP/Tdap/Td vaccine (2 - Td or Tdap) /Flu vaccine (#1)10/12/2024OVID-19 Vaccine ( - season)2024Polio uaqytjtDqmardvtm16/11/2004, 02/18/1999, 1998 Insurance Care Teams Team MemberRelationshipSpecialtyStart Date Gianni Anaya MD [address] [place] [address] [facility]14[facility]
--- OUTSIDE RECORDS SUMMARY | 2025-02-25 19:51 | XMS_ITS | Patient Health Record ---
Author Organization [facility] [place] Address [address] [place] [address] Care Team Providers Care Data Processing Supervisor Name Role Phone Francisco Anaya Primary Care Provider [phone] Allergies No Known Allergies Reason For Referral No Information Medications Medication SIG (Take, Route, Frequency, Duration) Notes Start Date End Date Status ZyrTEC 10 MG 1 tablet Orally Once a day ActivemetroNIDAZOLE 500 MG1 tablet Orally Three times a day; Duration: 10 days 5ActiveVentolin HFA 108 (90 Base) MCG/ACT2 puff as needed Inhalation four times daily as needed; Duration: 30 days3Active Social History Tobacco Use: Social History Observation Description Date Details (start date - stop date) Current Smoker NA - NA Tobacco Control (Standard) Question Answer Notes Tobacco use: Current smoker Problems Problem Type SNOMED Code ICD Code Onset Dates Problem Status W/U Status Risk Notes Problem Asthma (280501601) Asthma (J45.909) ActiveconfirmedProblemSeasonal allergic rhinitis (088637245)Seasonal allergic rhinitis (J30.2)Activeconfirmed Vital Signs Blood pressure diastolic 70 mm Hg 06/19/2024 Ahyqlv83 in06/19/2024lood pressure foqpuvfp167 mm Hg06/19/20246101Axwlun392.0 lbs 06/19/2024BMI27.98 kg/m206/19/2024 Encounters Encounter Location Date Provider Diagnosis [facility] [address] [place] [address] 06/19/2024 Francisco Anaya Asthma J45.909 [facility] [address] [place] [address] 08/24/[address] [facility] [place] [address] 11/19/2024Francisco De Paza J45.909 Assessments Encounter Date Diagnosis (ICD Code) Assessment Notes Treatment Notes Treatment Clinical Notes Section Notes 06/19/2024 Asthma (ICD-10 - J45.909) 11/19/2024sthma (ICD-10 - J45.909) Plan Of Treatment No Information Insurance Providers Payer Name Payer Address Payer Phone Subscriber Number Group Number Insured Name Patient Relationship to Insured Coverage Start Date Coverage End Date [employer] [address] [place] [phone] [id number] Janak Omer - patient is the [id number] 2024 Medical (General) History Medical History History ICD Code Seasonal allergic rhinitis J30.2 Asthmatic bronchitis J45.909
[2025-02-25 20:03] LABS: Alanine Aminotransferase 25 U/L (14-59); Albumin Globulin Ratio 1.2; Albumin Level 4.1 g/dL (3.4-5.0); Alkaline Phosphatase 87 U/L (46-116); Anion Gap 14.7; Aspartate Amino Transferase 7 U/L (15-37); Blood Urea Nitrogen 17.0 mg/dL (7.0-18.0); Calcium 9.1 mg/dL (8.5-10.1); Carbon Dioxide 26.2 mmol/L (21.0-32.0); Chloride 102 mmol/L (98-107); Estimated GFR (African America >60 (>=60 mL/min/1.73m^2); Estimated GFR (Non-African Ame >60 (>=60 mL/min/1.73m^2); Globulin 3.5 g/dL; Glucose 93 mg/dL (74-106); Potassium 3.9 mmol/L (3.5-5.1); Sodium 139 mmol/L (136-145); Total Protein 7.6 g/dL (6.4-8.2)
--- NOTE | 2025-02-25 20:06 | US_ITS ---
The [address] [address] Patient Name: RUBEN IYER MRN: [id number] date: 2000 Sex: F Assigned Patient Location: ER Current Patient Location: Accession/Order Number: [id number] Exam Date: 02/25/2025 20:32 Report Date: 02/25/2025 21:22 At the request of: BERTO TANNER Procedure: US pelvis transvaginal EXAMINATION TYPE: US pelvis transvaginal Grayscale, color scale Doppler, vascular duplex analysis of the bilateral ovaries DATE OF EXAM ORDERED: 02/25/2025 9:05 PM HISTORY: Left sided pelvic pain, period 3 wks late, negative test COMPARISON: NONE TECHNIQUE: Realtime Transvaginal and Transabdominal imaging was performed. Transvaginal imaging was utilized to better evaluate the ovaries and the endometrial stripe. Grayscale, color scale Doppler, vascular duplex analysis of the bilateral ovaries was performed to assess blood flow. FINDINGS: The uterus measures 8.5 x 5.0 x 5.9 cm. The uterus is heterogeneous in echotexture. Endometrium: The endometrium measures 6 mm in thickness. Ovaries: The visualized ovaries are within normal limits for songraphic evaluation. Right Ovary measurements: 4.2 x 3.3 x 2.2 cm Left Ovary measurements: 2.7 x 2.2 x 2.5 cm No abnormal adnexal mass is seen. No free fluid in the pelvic cul-de-sac. Vascular duplex analysis of the bilateral ovaries demonstrates normal blood flow without evidence of ovarian ischemia. US/US pelvis transvaginal IMPRESSION: The uterus is heterogeneous in echotexture which is nonspecific. No evidence of intrauterine . No adnexal mass. No evidence of ovarian ischemia. Impression dictated by: Francesco Zaragoza M.D. 02/25/2025 9:22 PM Dictation Location: [place] [address] Electronically authenticated by: [id number] Date: 02/25/2025 21:22
--- NOTE | 2025-02-25 20:15 | ED_ITS ---
HPI HPI - General Adult General Chief complaint: Abdominal Pain Stated complaint: FATIGUE/ PERIOD IS LATE/ PRESSURE IN PELVIC AREA Time Seen by Provider: 02/25/25 19:22 Source: patient Mode of arrival: walk-in Limitations: no limitations History of Present Illness HPI narrative: Patient is a 24-year-old female G3, P3 who presents with complaints of progressive left-sided pelvic pain that worsened in the last day. She states that she is 6 months from her third child and was having normal periods for her until this month, her period is 3 weeks late. She states she took 6 at home test that were negative. She denies any history of fibroids, endometriosis, or ovarian cyst. She also notes that recently she has been excessively fatigued, but denies any recent illness or sick contacts. Related Data Previous Rx's ?Medication ?Instructions ?Recorded ondansetron 4 mg disintegrating 4 mg PO Q6H PRN nausea and 01/19/23 tablet vomiting #20 tabs Allergies Allergy/AdvReac Type Severity Reaction Status Date / Time codeine Allergy Unknown Unknown Verified 02/25/25 19:06 Opioid HPI Opioid Management Most Recent Opioid Data: Last Pain Scale 8 02/25/25, 19:27 Review of Systems ROS Status of ROS 10 or more systems reviewed and unremark able except as noted in history and below PFSH PFSH Social History Little interest or pleasure in doing things: not at all Feeling down, depressed, or hopeless: not at all Exam Narrative Exam Narrative: General: No distress, age-appropriate Skin: Warm, dry, no pallor. No rash. Head: Normocephalic, atraumatic. Neck: Supple, non-tender. Eye: Pupils are equal, round and EOMI. No scleral icterus. Ears, Nose, Mouth, and Throat: No nasal mucosal hypertrophy. Oral mucosa is moist, no posterior oropharynx erythema, uvula is mid-line Cardiovascular: Regular Rate and Rhythm without murmur, gallop or rub. Musculoskeletal: Full ROM of all extremities, no calf or popliteal tenderness. GI: Abdomen is soft, non-distended, mild left pelvic tenderness to palpation. No masses appreciated. No rebound, guarding, or rigidity noted. Neurological: A&O x4. No cranial nerve dysfunction observed. No truncal ataxia. Moves all extremities. Sensation intact. Psychiatric: Cooperative and interactive. Normal mood and affect. Constitutional Vital Signs, click to edit/add: Last Vital Signs Temp 97.8 F 02/25/25 19:03 Pulse 70 02/25/25 19:03 Resp 18 02/25/25 19:03 BP 136/71 02/25/25 19:03 Pulse Ox 96 02/25/25 19:03 O2 Del Method Room Air 02/25/25 19:03 Documenting provider has reviewed patient's vital signs: yes Course Vital Signs Vital signs: Vital Signs Temperature 97.8 F 02/25/25 19:03 Pulse Rate 70 02/25/25 19:03 Respiratory Rate 18 02/25/25 19:03 Blood Pressure 136/71 02/25/25 19:03 Pulse Oximetry 96 02/25/25 19:03 Oxygen Delivery Method Room Air 02/25/25 19:03 Temperature 97.8 F 02/25/25 19:03 Pulse Rate 70 02/25/25 19:03 Respiratory Rate 18 02/25/25 19:03 Blood Pressure 136/71 02/25/25 19:03 Pulse Oximetry 96 02/25/25 19:03 Oxygen Delivery Method Room Air 02/25/25 19:03 Medical Decision Making [facility] Narrative Medical decision making narrative: 24-year-old female, 6 months , presented with progressive left- sided pelvic pain, a delayed menses, and fatigue. On arrival patient in no distress, vital stable, labs (CBC, CMP, UA within normal limits). hCG urine negative. Quantitative serum -hCG was <1 mIU/mL. Transvaginal pelvic ultrasound demonstrated a heterogeneous uterus without evidence of intrauterine , adnexal masses, or ovarian ischemia. Labs and imaging effectively rule out , ectopic , ovarian torsion, ovarian cyst/mass, and infection. Given stable vitals, lack of alarming features, and unremarkable workup, her pelvic pain is most consistent with non- emergent causes, likely musculoskeletal, functional changes, or anxiety-related amplification. Results discussed with patient and she admits she took a Plan B before her last period which we discussed could also delayed or irregular periods. Patient did not require any pain medication while in the ER, she was educated on red-flag symptoms, and advised to follow up with gynecology for ongoing evaluation. Patient discharged in stable condition, pain controlled, with plan for [employer] follow-up. Differential Diagnosis Differential Diagnosis: Ectopic , ovarian torsion, ovarian cyst, UTI Lab Data Lab results reviewed: Yes I reviewed the patient's lab results Labs: Lab Results 02/25/25 02/25/25 Range/Units 19:24 19:36 WBC 7.4 (4.0-11.0) 10^3/uL RBC 4.12 L (4.20-5.40) 10^6/uL Hgb 12.9 (12.0-16.0) g/dL Hct 38.3 (36.0-48.0) % MCV 93.0 (81.0-99.0) fL MCH 31.3 (26.7-34.0) pg MCHC 33.7 (29.9-35.2) g/dL RDW 11.7 (11.0-15.0) % Plt Count 275 (150-450) 10^3/uL MPV 10.4 (9.5-13.5) fL Neut % (Auto) 56.3 (43.0-75.0) % Lymph % (Auto) 31.8 (20.5-60.0) % Ritchie % (Auto) 8.0 (1.7-12.0) % Eos % (Auto) 3.4 (0.9-7.0) % Baso % (Auto) 0.4 (0.2-2.0) % Neut # (Auto) 4.2 (1.4-6.5) 10^3/uL Lymph # (Auto) 2.4 (1.2-3.8) 10^3/uL Ritchie # (Auto) 0.6 (0.3-0.8) 10^3/uL Eos # (Auto) 0.3 (0.0-0.7) 10^3/uL Baso # (Auto) 0.0 (0.0-0.1) 10^3/uL Abs Immat Gran (auto) 0.01 (0.00-0.03) 10^3/uL Imm/Tot Granulo (auto) 0.1 (0.0-0.5) % Sodium 139 (136-145) mmol/L Potassium 3.9 (3.5-5.1) mmol/L Chloride 102 (98-107) mmol/L Carbon Dioxide 26.2 (21.0-32.0) mmol/L Anion Gap 14.7 BUN 17.0 (7.0-18.0) mg/dL Creatinine 0.89 (0.55-1.02) mg/dL Est GFR ( Amer) >60 (>=60 mL/min/1.73m^2) Est GFR (Non-Af Amer) >60 (>=60 mL/min/1.73m^2) BUN/Creatinine Ratio 19.1 Glucose 93 (74-106) mg/dL Calcium 9.1 (8.5-10.1) mg/dL Total Bilirubin 0.2 (0.2-1.0) mg/dL AST 7 L (15-37) U/L ALT 25 (14-59) U/L Alkaline Phosphatase 87 (46-116) U/L Total Protein 7.6 (6.4-8.2) g/dL Albumin 4.1 (3.4-5.0) g/dL Globulin 3.5 g/dL Albumin/Globulin Ratio 1.2 HCG, Quant <1 mIU/mL Urine Color Lt. yellow (YELLOW) Urine Clarity Clear (CLEAR) Urine pH 6.5 (5.0-9.0) Ur Specific Henderson 1.020 (1.005-1.025) Urine Protein Negative (NEG/TRACE) mg/dL Urine Glucose (UA) Negative (NEGATIVE) mg/dL Urine Ketones Negative (NEGATIVE) mg/dL Urine Occult Blood Negative (NEGATIVE) Urine Nitrite Negative (NEGATIVE) Urine Bilirubin Negative (NEGATIVE) Urine Urobilinogen 0.2 (0.2-1.0) EU/dL Ur Leukocyte Esterase Trace A (NEGATIVE) Urine RBC None seen (0-2) #/HPF Urine WBC 0-2 A (NONE SEEN) #/HPF Ur Squamous Epith Cells Few A (NONE/RARE) #/LPF Urine Crystals None seen (None Seen) #/HPF Urine Bacteria None seen (NONE SEEN) #/HPF Urine Casts None seen (NONE SEEN) #/LPF Urine Mucus None seen (NONE SEEN) Ur Culture Indicated? No Urine HCG, Qual Negative (NEGATIVE) Imaging Data Transvaginal pelvis ultrasound: Attestation: I have reviewed the pertinent imaging results. Radiologist's impression: ITS Impressions Transvaginal US 02/25/25 20:06 IMPRESSION: The uterus is heterogeneous in echotexture which is nonspecific. No evidence of intrauterine . No adnexal mass. No evidence of ovarian ischemia. Impression dictated by: Francesco Zaragoza M.D. 02/25/2025 9:22 PM Dictation Location: [employer] Electronically authenticated by: [id number] Y Date: 02/25/2025 21:22 Discharge Plan Discharge Chief Complaint: Abdominal Pain Clinical Impression: Pelvic pain Patient Disposition: Home, Self-Care Time of Disposition Decision: 21:52 Condition: Good Mode of Transportation: Private Vehicle Prescriptions / Home Meds: No Action ondansetron 4 mg tablet,disintegrating 4 mg PO Q6H PRN (Reason: nausea and vomiting) Qty: 20 0RF Print Language: Bangladeshi Instructions: Pelvic Pain (ED) Additional Instructions: * Pain Management * Take NSAIDs (e.g., ibuprofen 400?600 mg every 6?8 hours as needed) if not contraindicated. * Apply heat to the lower abdomen/pelvis for relief. * Rest as tolerated, avoid heavy lifting until pain improves. * Activity * Light activity is encouraged; avoid strenuous exercise or heavy lifting until pain subsides. * Gentle stretching may help musculoskeletal discomfort. * Monitoring Seek medical attention immediately if you experience any of the following: * Sudden, severe pelvic pain * Fever or chills * Vaginal bleeding or discharge * Nausea, vomiting, or dizziness * Signs of infection or sudden worsening pain * Follow-up * Schedule a gynecology appointment within the next 1?2 weeks for further evaluation of pelvic pain. * Reassurance * No signs of life-threatening conditions were found in the ER. * Medications * Continue any current medications unless otherwise directed. * Take NSAIDs with food to minimize stomach upset. When to Return to the ER Immediately: * Severe, sudden pelvic pain * Fainting, lightheadedness, or rapid heartbeat * Heavy vaginal bleeding * Fever >=100.4?F (38?C) * Any new concerning symptom Referrals: KHAI BARAHONA [Physician, Unknown] - 1 week Physician,Non-Staff, [Primary Care Provider] - 1 week Discharge Date/Time: 02/25/25 22:04
== END 2025-02-25 22:04 | disposition home or self-care (01) ==
PROVIDERS: Physician Assistant; Emergency Provider Internal Medicine
DX: R10.22 Pelvic and perineal pain left side (principal)
CPT/HCPCS: 36415; 76830; 80053; 81001; 84702; 84703; 85025; 99284